=== PATIENT | male | born 1965 | race Caucasian/White ===

== ENCOUNTER → 2021-01-10 10:56 | Outpatient (BNVA) | payer OTHER, SELFPAY | PROVIDERS: PCP Internal Medicine; Visit Provider Surgery ==

== ENCOUNTER 2021-02-19 05:55 | Outpatient (REF) | payer OTHER, SELFPAY ==
[2021-02-19 08:16] LABS: PSA,Total (Free>4and<10) 1.58 ng/mL (0.00-4.00)
== END 2021-02-19 05:56 | disposition home or self-care (01) ==
LOC: HO.LAB 05:55
PROVIDERS: PCP Internal Medicine; Visit Provider Urology
DX: Z12.5 Encounter for screening for malignant neoplasm of prostate (principal); Z80.42 Family history of malignant neoplasm of prostate
CPT/HCPCS: 36415; 84153

== ENCOUNTER → 2021-02-23 12:38 | Outpatient (BNVA) | payer OTHER, SELFPAY | PROVIDERS: PCP Internal Medicine; Visit Provider Urology ==

== ENCOUNTER → 2021-07-18 13:36 | Outpatient (BNVA) | payer OTHER, SELFPAY | PROVIDERS: PCP Internal Medicine; Visit Provider Internal Medicine | DX: I10 Essential (primary) hypertension (principal); I49.3 Ventricular premature depolarization; E78.5 Hyperlipidemia, unspecified; Z82.49 Family history of ischemic heart disease and other diseases of the circulatory system | CPT/HCPCS: 93005 ==

== ENCOUNTER 2021-08-10 06:01 | Outpatient (REF) | payer OTHER, SELFPAY ==
[2021-08-10 06:07] LABS: MANUAL DIFF FLAG NO
[2021-08-10 07:27] LABS: Basophils Percent Auto 0.5 % (0-2); Eosinophils Absolute Auto 0.1 X10*3/uL (0.0-0.4); Eosinophils Percent Auto 1.6 % (0-4); Hematocrit 43.8 % (42-52); Hemoglobin 14.4 g/dl (14.0-18.0); Imm Gran Abs Auto 0.01 X10*3/uL (0.00-0.03); Imm Gran Pct Auto 0.2 % (0.0-0.4); Lymphocytes Absolute Auto 1.2 X10*3/uL (1.2-4.9); Lymphocytes Percent Auto 28.7 % (20-40); Mean Corpuscular HGB Conc 32.9 g/dl (31.0-36.0); Mean Corpuscular Hemoglobin 27.5 pg (27.0-33.0); Mean Corpuscular Volume 83.7 fL (80-98); Mean Platelet Volume 10.5 fL (9.4-12.4); Monocytes Absolute Auto 0.4 X10*3/uL (0.1-1.2); Monocytes Percent Auto 9.5 % (2-11); Neutrophils Absolute Auto 2.6 X10*3/uL (2.0-8.3); Neutrophils Percent Auto 59.5 % (45-73); Platelet Count 207 X10*3/uL (160-400); Red Blood Count 5.23 X10*6/uL (4.60-5.80); Red Cell Distribution Width 13.2 % (11.0-16.0); White Blood Count 4.3 X10*3/uL (4.8-10.8)
[2021-08-10 07:55] LABS: Alanine Aminotransferase 23 U/L (0-40); Albumin Level 4.8 g/dL (3.5-5.0); Alkaline Phosphatase 61 U/L (39-117); Anion Gap 13 (12-20); Aspartate Amino Transferase 15 U/L (5-37); Bilirubin Total 0.4 mg/dL (0.0-1.0); Blood Urea Nitrogen 22 mg/dL (9-16); Calcium 9.8 mg/dL (8.4-10.2); Carbon Dioxide 24 mmol/L (22-29); Chloride 104 mmol/L (96-108); Cholesterol 150 mg/dL; Estimated Glomerular Filt Rate > 60; Glucose Fasting 134 mg/dL (60-99); HDL Cholesterol 29 mg/dL; Potassium 4.1 mmol/L (3.3-5.1); Sodium 137 mmol/L (135-145); Total Protein 7.3 g/dL (6.5-8.0); Triglycerides 428 mg/dL
[2021-08-10 10:43] LABS: Creatinine Urine 204.03 mg/dL; Microalbum/Creatinine Ratio Ur 11.7 ug/mg cr
[2021-08-17 14:07] LABS: Vitamin D 25-OH, D2 <4 ng/mL; Vitamin D 25-OH, D3 29 ng/mL; Vitamin D 25-OH, Total 29 ng/mL (30-100)
== END 2021-08-10 06:02 | disposition home or self-care (01) ==
LOC: HO.LAB 06:01
PROVIDERS: PCP Internal Medicine; Visit Provider Internal Medicine
DX: E78.5 Hyperlipidemia, unspecified (principal); E11.9 Type 2 diabetes mellitus without complications; D64.9 Anemia, unspecified; F41.9 Anxiety disorder, unspecified; E55.9 Vitamin D deficiency, unspecified
CPT/HCPCS: 36415; 80053; 80061; 82043; 82306; 85025

== ENCOUNTER 2022-02-16 07:20 | Outpatient (REF) | payer OTHER, SELFPAY ==
[2022-02-16 08:12] LABS: Cholesterol 156 mg/dL; HDL Cholesterol 31 mg/dL; Triglycerides 529 mg/dL
[2022-02-16 08:15] LABS: Creatinine Urine 185.18 mg/dL; Microalbum/Creatinine Ratio Ur 4.3 ug/mg cr
[2022-02-16 08:33] LABS: Prostate Specific Antigen 2.57 ng/mL (<0.05-4.0)
[2022-02-20 13:35] LABS: Vitamin D 25-OH, D2 <4 ng/mL; Vitamin D 25-OH, D3 14 ng/mL; Vitamin D 25-OH, Total 14 ng/mL (30-100)
== END 2022-02-16 07:21 | disposition home or self-care (01) ==
LOC: HO.LAB 07:20
PROVIDERS: PCP Internal Medicine; Visit Provider Urology
DX: Z12.5 Encounter for screening for malignant neoplasm of prostate (principal); N13.8 Other obstructive and reflux uropathy; N40.1 Benign prostatic hyperplasia with lower urinary tract symptoms; E78.5 Hyperlipidemia, unspecified; E55.9 Vitamin D deficiency, unspecified; E11.9 Type 2 diabetes mellitus without complications
CPT/HCPCS: 36415; 80061; 82043; 82306; 84153

== ENCOUNTER → 2022-02-22 10:13 | Outpatient (BNVA) | payer OTHER, SELFPAY | PROVIDERS: PCP Internal Medicine; Visit Provider Urology | DX: Z13.89 Encounter for screening for other disorder (principal) ==

== ENCOUNTER 2022-08-15 06:02 | Outpatient (REF) | payer OTHER, SELFPAY ==
[2022-08-15 07:38] LABS: Alanine Aminotransferase 21 U/L (0-40); Albumin Level 4.6 g/dL (3.5-5.0); Alkaline Phosphatase 59 U/L (39-117); Anion Gap 17 (12-20); Aspartate Amino Transferase 17 U/L (5-37); Bilirubin Total 0.4 mg/dL (0.0-1.0); Blood Urea Nitrogen 18 mg/dL (9-16); Calcium 9.6 mg/dL (8.4-10.2); Carbon Dioxide 23 mmol/L (22-29); Chloride 102 mmol/L (96-108); Cholesterol 161 mg/dL; Estimated Glomerular Filt Rate > 60; Glucose Fasting 132 mg/dL (60-99); HDL Cholesterol 30 mg/dL; Potassium 4.2 mmol/L (3.3-5.1); Sodium 138 mmol/L (135-145); Total Protein 7.1 g/dL (6.5-8.0); Triglycerides 524 mg/dL
[2022-08-15 07:53] LABS: Thyroid Stimulating Hormone 1.79 uIU/mL (0.32-4.0)
== END 2022-08-15 06:03 | disposition home or self-care (01) ==
LOC: HO.LAB 06:02
PROVIDERS: PCP Internal Medicine; Visit Provider Internal Medicine
DX: I10 Essential (primary) hypertension (principal); E66.9 Obesity, unspecified; E55.9 Vitamin D deficiency, unspecified; E78.5 Hyperlipidemia, unspecified
CPT/HCPCS: 36415; 80053; 80061; 82306; 84443

== ENCOUNTER 2022-12-20 06:02 | Outpatient (REF) | payer OTHER, SELFPAY ==
[2022-12-20 08:08] LABS: Alanine Aminotransferase 26 U/L (0-40); Albumin Level 4.7 g/dL (3.5-5.0); Alkaline Phosphatase 64 U/L (39-117); Anion Gap 17 (12-20); Aspartate Amino Transferase 19 U/L (5-37); Bilirubin Total 0.4 mg/dL (0.0-1.0); Blood Urea Nitrogen 22 mg/dL (9-16); Calcium 9.5 mg/dL (8.4-10.2); Carbon Dioxide 23 mmol/L (22-29); Chloride 104 mmol/L (96-108); Cholesterol 153 mg/dL; Estimated Glomerular Filt Rate > 60; Glucose Fasting 99 mg/dL (60-99); HDL Cholesterol 31 mg/dL; Potassium 4.5 mmol/L (3.3-5.1); Sodium 139 mmol/L (135-145); Total Protein 7.1 g/dL (6.5-8.0); Triglycerides 455 mg/dL
[2022-12-20 08:16] LABS: Creatinine Urine 188.89 mg/dL; Microalbum/Creatinine Ratio Ur 5.8 ug/mg cr
[2022-12-20 08:23] LABS: Vitamin D 25-OH Total 9.8 ng/mL (>30)
== END 2022-12-20 06:03 | disposition home or self-care (01) ==
LOC: HO.LAB 06:02
PROVIDERS: PCP Internal Medicine; Visit Provider Internal Medicine
DX: Z00.00 Encounter for general adult medical examination without abnormal findings (principal); E78.5 Hyperlipidemia, unspecified; E11.9 Type 2 diabetes mellitus without complications; E55.9 Vitamin D deficiency, unspecified
CPT/HCPCS: 36415; 80053; 80061; 82043; 82306

== ENCOUNTER 2023-01-01 10:15 | Emergency (ER) | payer OTHER, SELFPAY ==
[2023-01-01 10:20] VITALS: BP 152/84; PULSE 102; RESP 18; TEMP 36.6; O2SAT 98; BMI 29.8
--- NOTE | 2023-01-01 10:23 | ECG_ITS ---
Test Reason : CHEST TIGHTNESS Blood Pressure : / mmHG Vent. Rate : 092 BPM Atrial Rate : 092 BPM P-R Int : 138 ms QRS Dur : 084 ms QT Int : 348 ms P-R-T Axes : 038 -01 037 degrees QTc Int : 430 ms Normal sinus rhythm Normal ECG When compared with ECG of 12-OCT-2018 08:03, Premature ventricular complexes are no longer Present Referred By: Generic ED Physician Electronically Signed By:PARMINDER CHAN MD
[2023-01-01 10:54] LABS: MANUAL DIFF FLAG NO
[2023-01-01 10:58] LABS: Basophils Percent Auto 0.7 % (0-2); Eosinophils Absolute Auto 0.1 X10*3/uL (0.0-0.4); Eosinophils Percent Auto 1.4 % (0-4); Hematocrit 44.9 % (42.0-52.0); Hemoglobin 14.9 g/dl (14.0-18.0); Imm Gran Abs Auto 0.02 X10*3/uL (0.00-0.03); Imm Gran Pct Auto 0.3 % (0.0-0.4); Lymphocytes Absolute Auto 1.3 X10*3/uL (1.2-4.9); Lymphocytes Percent Auto 22.2 % (20-40); Mean Corpuscular HGB Conc 33.2 g/dl (31.0-36.0); Mean Corpuscular Hemoglobin 28.2 pg (27.0-33.0); Mean Corpuscular Volume 84.9 fL (80.0-98.0); Mean Platelet Volume 9.8 fL (9.4-12.4); Monocytes Absolute Auto 0.6 X10*3/uL (0.1-1.2); Monocytes Percent Auto 10.5 % (2-11); Neutrophils Absolute Auto 3.8 x10*3/uL (2.0-8.3); Neutrophils Percent Auto 64.9 % (45-73); Platelet Count 197 X10*3/uL (160-400); Red Blood Count 5.29 X10*6/uL (4.60-5.80); Red Cell Distribution Width 13.1 % (11.0-16.0); White Blood Count 5.8 X10*3/uL (4.8-10.8)
[2023-01-01 11:16] LABS: Anion Gap 17 (12-20); Blood Urea Nitrogen 14 mg/dL (9-16); Calcium 9.9 mg/dL (8.4-10.2); Carbon Dioxide 24 mmol/L (22-29); Chloride 100 mmol/L (96-108); Creatinine Clr Calc Pharmacy 103.8; Estimated Glomerular Filt Rate > 60; Glucose Random 122 mg/dL (60-115); Potassium 4.3 mmol/L (3.3-5.1); Sodium 137 mmol/L (135-145)
[2023-01-01 11:27] LABS: Troponin-I High Sensitivity < 3.5 ng/L (<3.5-35.0)
[2023-01-01 14:00] VITALS: BP 128/91; PULSE 89; RESP 18; TEMP 36; O2SAT 99
[2023-01-01 18:18] VITALS: BP 157/105; PULSE 86; RESP 16; TEMP 37; O2SAT 99
[2023-01-01 18:22] VITALS: BP 151/102
--- NOTE | 2023-01-01 18:28 | ED_ITS ---
HPI - General Adult General Chief complaint: Arrhythmia/Palpitations Stated complaint: HBP/High heart rate Source: patient and RN notes reviewed Mode of arrival: ambulatory Limitations: no limitations History of Present Illness HPI narrative: 57-year-old male past medical history significant for hypertension, diabetes, anxiety presents for evaluation of high blood pressure. Patient reports for the last week he has had elevated blood pressure and increased heart rate He reports he feels increased stress stating ?I found out that my read is still going up and I got an argument with my son. ? He reports that he takes metoprolol and lisinopril for his blood pressure. He reports that he has been checking blood pressure throughout the day for the last week and the highest it has been is ?153/102. ? 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 for evaluation The patient reports that he also called his primary doctor who encouraged him to come to the ER The patient reports family history of coronary artery disease and CVA Related Data Previous Rx's Medication Instructions Recorded blood pressure test kit-large #1 ea 08/01/21 ([employer] Blood Pressure Monitor kit) rosuvastatin 10 mg tablet 10 mg PO DAILY #90 tabs 05/23/22 lisinopril 40 mg tablet 40 mg PO DAILY 90 days #90 tabs 06/02/22 lancets 28 gauge #100 ea 07/24/22 fluocinolone acetonide oil 0.01 % 5 drp otic (ear) left BID 7 days 08/20/22 ear drops (DermOtic Oil) #20 mL metoprolol succinate 100 mg 100 mg PO DAILY 90 days #90 tabs 09/27/22 tablet,extended release 24 hr clonazepam 1 mg tablet 1 mg PO BID 30 days #60 tabs 12/19/22 blood sugar diagnostic (FreeStyle #50 ea 12/24/22 Test strips) cholecalciferol (vitamin D3) 50 50 mcg PO DAILY 90 days #90 caps 01/01/23 mcg (2,000 unit) capsule fenofibrate 160 mg tablet 160 mg PO DAILY 90 days #90 tabs 01/01/23 Allergies Allergy/AdvReac Type Severity Reaction Status Date / Time amoxicillin [AMOXICILLIN] Allergy Intermediate HIVES Verified 01/01/23 10:20 cephalexin [CEPHALEXIN] Allergy Intermediate HIVES Verified 01/01/23 10:20 doxycycline [DOXYCYCLINE] Allergy Intermediate HIVES Verified 01/01/23 10:20 Sulfa (Sulfonamide Allergy Intermediate hives Verified 01/01/23 10:20 Antibiotics) Review of Systems Constitutional: Constitutional: Reports as per HPI, Denies chills, Denies fatigue, Denies fever(s) and Denies headache(s) ENT: Denies headache(s) Cardiovascular: Cardiovascular: Denies chest pain and Denies dyspnea Respiratory: Respiratory: Denies cough and Denies dyspnea Gastrointestinal: Gastrointestinal: Denies abdominal pain, Denies constipation and Denies vomiting Genitourinary: Genitourinary: Denies difficulty urinating and Denies dysuria Neurologic: Denies Abnormal speech present and Denies headache(s) Endocrine: Endocrine: Denies fatigue PMFSH Past Medical History Medical History Anxiety Diabetes mellitus Essential hypertension Surgical History History of surgery Family History Family History Father History of prostate surgery Mother Hx of CABG Sister DVT (deep venous thrombosis) Social History Social History Housing: Apartment Alcohol intake: current Alcohol intake frequency: a few times a month Alcohol type: hard liquor Patient Tobacco Use Status: Never used Tobacco e-Cigarette/Vaping Use: Never Used Second Hand Smoke Exposure: No Advance Directives: No Advance Directives Information Provided: No service: No Current occupational status: employed Current occupational exposures/hazards: No Cognitive needs: No Hearing needs: No Vision needs: No Physical Exam ED Vital Signs: Vital Signs - 24 hr 01/01/23 10:20 01/01/23 14:00 01/01/23 14:00 Temperature 97.8 F 96.8 F 96.8 F Pulse Rate 102 H 89 89 Respiratory Rate 18 18 18 Blood Pressure 152/84 H 128/91 H 128/91 H Pulse Oximetry 98 99 99 Oxygen Delivery Method Room Air Room Air Room Air 01/01/23 18:18 01/01/23 18:22 Temperature 98.6 F Pulse Rate 86 Respiratory Rate 16 Blood Pressure 157/105 H 151/102 H Pulse Oximetry 99 Oxygen Delivery Method Room Air BMI result Body Mass Index 29.8 Const General: healthy appearing, comfortable, no acute distress, alert and awake Nutritional Appearance: well nourished Orientation/consciousness: patient oriented x3 Eyes Eyelids: Yes eyelids normal Conjunctivae: conjunctivae normal Sclerae: sclerae normal Corneas: corneas normal Pupils: Equal, round and reactive pupils present EOM: EOMs intact bilaterally Resp Effort & Inspection: normal respiratory effort, able to speak in complete sentences, no audible wheezes and not labored Skin General skin exam: no rashes or lesions noted and elasticity normal Lesions: no lesions Rashes: no rashes Neuro General: patient oriented x3 Cranial nerves: Yes Equal, round and reactive pupils present and Yes Bilaterally intact EOM present Cognition (Neuro): normal cognition Speech: No Abnormal speech present Extrem General: Yes full ROM Medical Decision Making Medical Decision Making MDM Narrative: This is a pleasant 57-year-old male past medical history significant for hypertension, diabetes, anxiety presenting for evaluation of high blood pressure. The patient reports that he currently has no complaints except that he is hungry. His blood pressure in the ER is mildly elevated to 151/102 and a heart rate of 118. The patient reports feeling mildly anxious about these number because ?my family has history of stroke. The patient had labs that were all unremarkable including troponin, he had an EKG with normal sinus rhythm without ectopy. The patient is currently managed by his PCP for his hypertension with 2 medications. I do not feel that is necessary to adjust his medication at this time. There is no evidence of hypertensive urgency, end organ damage related to the hypertension. The patient agreed to follow-up with PCP Differential Diagnosis High blood pressure Hypertension Anxiety Coronary artery disease Stress Lab Data 01/01/23 10:49 01/01/23 10:49 Labs: Lab Results 01/01/23 01/01/23 01/01/23 Range/Units 10:49 10:49 10:49 WBC 5.8 (4.8-10.8) X10*3/uL RBC 5.29 (4.60-5.80) X10*6/uL Hgb 14.9 (14.0-18.0) g/dl Hct 44.9 (42.0-52.0) % MCV 84.9 (80.0-98.0) fL MCH 28.2 (27.0-33.0) pg MCHC 33.2 (31.0-36.0) g/dl RDW 13.1 (11.0-16.0) % Plt Count 197 (160-400) X10*3/uL MPV 9.8 (9.4-12.4) fL Immature Gran % (Auto) 0.3 (0.0-0.4) % Neut % (Auto) 64.9 (45-73) % Lymph % (Auto) 22.2 (20-40) % [place] % (Auto) 10.5 (2-11) % Eos % (Auto) 1.4 (0-4) % Baso % (Auto) 0.7 (0-2) % Lymph # (Auto) 1.3 (1.2-4.9) X10*3/uL [place] # (Auto) 0.6 (0.1-1.2) X10*3/uL Eos # (Auto) 0.1 (0.0-0.4) X10*3/uL Baso # (Auto) 0.0 (0.0-0.2) X10*3/uL Abs Immat Gran (auto) 0.02 (0.00-0.03) X10*3/uL Absolute Neuts (auto) 3.8 (2.0-8.3) x10*3/uL Absolute Nucleated RBC 0.000 (0.0-0.012) X10*3/uL Nucleated RBC % (auto) 0.0 (0.0-0.2) /100WBC Sodium 137 (135-145) mmol/L Potassium 4.3 (3.3-5.1) mmol/L Chloride 100 (96-108) mmol/L Carbon Dioxide 24 (22-29) mmol/L Anion Gap 17 (12-20) BUN 14 (9-16) mg/dL Creatinine 1.00 (0.5-1.4) mg/dL Estim Creat Clear Calc 103.8 Estimated GFR > 60 Random Glucose 122 H (60-115) mg/dL Calcium 9.9 (8.4-10.2) mg/dL Troponin I High Sens < 3.5 (<3.5-35.0) ng/L Discharge Plan Discharge Clinical Impression: Essential hypertension, Anxiety Patient Disposition: Home, Self-Care Instructions: Chronic Hypertension (ED) Additional Instructions: Check your blood pressure only 1 time daily at approximately the same time every day. Call your primary doctor schedule a follow-up appointment and bring your blood pressure diary with you. Prescriptions: No Action (DME) blood pressure test kit-large [[employer] BP Monitor] Kit See Rx Instructions .Route Qty: 1 0RF Rx Instructions: As directed rosuvastatin 10 mg tablet 10 mg PO DAILY Qty: 90 3RF lisinopril 40 mg tablet 40 mg PO DAILY 90 Days Qty: 90 3RF (DME) lancets 28 gauge misc See Rx Instructions topical DAILY Qty: 100 3RF Rx Instructions: Use 1 lancet once a day metoprolol succinate 100 mg tablet extended release 24 hr 100 mg PO DAILY 90 Days Qty: 90 2RF clonazepam 1 mg tablet 1 mg PO BID 30 Days Qty: 60 0RF (DME) FreeStyle Test Strip See Rx Instructions .ROUTE .MEDSUPPLY Qty: 50 11RF Rx Instructions: Use 1 test strip once a day cholecalciferol (vitamin D3) 50 mcg (2,000 unit) capsule 50 mcg PO DAILY 90 Days Qty: 90 1RF fenofibrate 160 mg tablet 160 mg PO DAILY 90 Days Qty: 90 1RF fluocinolone acetonide oil [DermOtic Oil] 0.01 % drops 5 drp otic (ear) left BID 7 Days Qty: 20 1RF
== END 2023-01-01 18:39 | disposition home or self-care (01) ==
PROVIDERS: Emergency Provider Emergency Medicine; PCP Internal Medicine
DX: I10 Essential (primary) hypertension (principal); F41.9 Anxiety disorder, unspecified; E11.9 Type 2 diabetes mellitus without complications; Z79.02 Long term (current) use of antithrombotics/antiplatelets; Z79.899 Other long term (current) drug therapy
CPT/HCPCS: 36415; 80048; 84484; 85025; 93005; 99283; 99284

== ENCOUNTER 2023-02-13 06:51 | Outpatient (REF) | payer OTHER, SELFPAY ==
[2023-02-13 08:15] LABS: Prostate Specific Antigen 1.95 ng/mL (<0.05-4.0)
== END 2023-02-13 06:52 | disposition home or self-care (01) ==
LOC: HO.LAB 06:51
PROVIDERS: PCP Internal Medicine; Visit Provider Urology
DX: R97.20 Elevated prostate specific antigen [PSA] (principal); N13.8 Other obstructive and reflux uropathy; N40.1 Benign prostatic hyperplasia with lower urinary tract symptoms; Z12.5 Encounter for screening for malignant neoplasm of prostate
CPT/HCPCS: 36415; 84153

== ENCOUNTER → 2023-02-21 09:44 | Outpatient (BNVA) | payer OTHER, SELFPAY | PROVIDERS: PCP Internal Medicine; Visit Provider Urology | DX: Z13.89 Encounter for screening for other disorder (principal) ==

== ENCOUNTER 2023-08-04 14:06 | Outpatient (AMB) | payer OTHER, SELFPAY ==
--- NOTE | 2023-08-04 14:13 | MHC.PC.OV ---
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 Accompanied by: Self / Same As Patient Allergies amoxicillin [AMOXICILLIN] Allergy (Intermediate, Verified 08/04/23 14:27) HIVES cephalexin [CEPHALEXIN] Allergy (Intermediate, Verified 08/04/23 14:27) HIVES doxycycline [DOXYCYCLINE] Allergy (Intermediate, Verified 08/04/23 14:27) HIVES Sulfa (Sulfonamide Antibiotics) Allergy (Intermediate, Verified 08/04/23 14:27) hives Medication List - Last Reconciled 08/04/23 by Mercy Castro MD blood pressure test kit-large ([employer] Blood Pressure Monitor kit) As directed blood sugar diagnostic (FreeStyle Test strips) Use 1 test strip once a day blood sugar diagnostic (Accu-Chek Guide test strips) check blood glucose once daily blood-glucose meter (Accu-Chek Guide Glucose Meter) check glucose once daily clonazepam 1 mg PO BID 30 days fenofibrate 160 mg PO DAILY 90 days lancets Use 1 lancet once a day lancets (Accu-Chek Softclix Lancets) check blood glucose once daily lisinopril 40 mg PO DAILY 90 days metoprolol succinate ER 100 mg PO DAILY 90 days rosuvastatin 10 mg PO DAILY Tobacco use date assessed: 08/04/23 Dental Screening Dental Screen Date: 08/04/23 Did you have a dental visit in the last 12 months?: Yes Did you have a dental problem in the last 6 months where you did not have access to dental care?: No Was dental information given to patient?: Patient has dentist HPI HPI Comments History of Present Illness Details This is a 58-year-old male with hypertension, mixed hyperlipidemia and anxiety that comes today complaining of elevated blood pressure today associated with sweating. Denies any headaches, dizziness, chest pain, palpitations or shortness of breath. He took his lisinopril today. Blood pressure will be recheck in 3 weeks by nurse navigator. Cholesterol and triglycerides were stable with medications. Anxiety also well controlled with benzodiazepines as needed and he is aware can cause addiction and sedation. [facility] Medical History (Updated 08/04/23 @ 15:49 by Mercy Castro MD) Anxiety Essential hypertension Surgical History History of surgery Family History Father History of prostate surgery Mother Hx of CABG Sister DVT (deep venous thrombosis) Social History Housing: Apartment Alcohol intake: current Alcohol intake frequency: a few times a month Alcohol type: hard liquor Patient Tobacco Use Status: Never used Tobacco e-Cigarette/Vaping Use: Never Used Second Hand Smoke Exposure: No service: No Current occupational status: employed Current occupational exposures/hazards: No Cognitive needs: No Hearing needs: No Vision needs: Yes Questionnaire PHQ-9 Over the last 2 weeks, how often have you been bothered by any of the following problems? 1. Little interest or pleasure in doing things: not at all 2. Feeling down, depressed, or hopeless: not at all 3. Trouble falling or staying asleep, or sleeping too much: not at all 4. Feeling tired or having little energy: not at all 5. Poor appetite or overeating: not at all 6. Feeling bad about yourself - or that you are a failure or have let yourself or your family down: not at all 7. Trouble concentrating on things, such as reading the newspaper or watching television: not at all 8. Moving or speaking so slowly that other people could have noticed. Or the opposite - being so fidgety or restless that you have been moving around a lot more than usual: not at all 9. Thoughts that you would be better off or of hurting yourself in some way: not at all Total score: 0 Depression Screening Interpretation: Negative 78883 - PHQ-9 Billing: Yes Source: Developed by Drs. Jordan Beckford, Digna Matt, Jacob Scales and colleagues, with an educational delfino from [employer] Thrive Questionnaire Date Thrive assessed: 08/04/23 I am a: Patient What is your living situation today?: I have a steady place to live Within the past 12 months, did the food you bought not last and you didn't have the money to get more?: Never true Within the past 12 months, did you worry whether your food would run out before you got money to buy more?: Never true Do you have trouble paying for medicines?: No Do you have trouble getting transportation to medical appointments?: No Do you have trouble paying your heating and electricity bill?: No Do you have trouble taking care of your child, family member or friend?: No Do you have trouble with day-to-day activities such as bathing, preparing meals, shopping, managing finances, etc.?: No Are you currently unemployed and looking for a job?: No Are you interested in more education?: No Please select the resources that you would like help with: None Currently or been in a relationship where the following occur: no concerns reported AUDIT C Alcohol Use Questionnaire (AUDIT-C) 1. How often do you have a drink containing alcohol?: 2-4 times a month 2. How many drinks containing alcohol do you have on a typical day when you are drinking?: 1 or 2 3. How often do you have six or more drinks on one occasion?: Never Total Score: 2 Score Reviewed/Action Taken: No PAYAL-7 AMB Questionnaire PAYAL-7 Date PAYAL - 7 assessed: 08/04/23 Feeling nervous, anxious, or on edge: 1 = Several days Not being able to stop or control worryin = Not at all Worrying too much about different things: 0 = Not at all Trouble relaxin = Not at all Being so restless that it is hard to sit still: 0 = Not at all Becoming easily annoyed or irritable: 0 = Not at all Feeling afraid as if something awful might happen: 0 = Not at all Total PAYAL-7 score (0-4 normal; 5-9 mild; 10-14 moderate; 15-21 severe): 1 Source: Developed by Drs. Jordan Beckford, Digna Matt, Jacob Scales and colleagues, with an educational delfino from [employer] PAYAL-7 Assessment Billing PAYAL-7 Assessment Tool: PAYAL-7 Assessment 12718 Review of Systems Const All systems reviewed & are unremarkable except as noted in HPI and below Eyes Reports no additional complaints, Denies change in vision and Denies other visual disturbances Card Denies chest pain at rest, Denies chest pain with activity, Denies edema, Denies irregular heart rhythm, Denies claudication, Denies dyspnea, Denies dyspnea on exertion, Denies orthopnea, Denies paroxysmal nocturnal dyspnea and Denies slow heart rate Resp Denies cough, Denies dyspnea and Denies dyspnea on exertion GI Denies abdominal pain, Denies change in bowel habits, Denies excessive flatus, Denies nausea and Denies vomiting Denies urinary hesitancy, Denies urinary incontinence and Denies urinary urgency Musc Denies abnormal gait, Denies atrophy, Denies deformity and Denies limited range of motion Skin/Breast Denies bleeding lesions, Denies changing lesions and Denies rash Neuro Denies abnormal gait and Denies lack of coordination Physical exam (Primary Care) Vital Signs: Last Vital Signs Pulse 104 H 08/04/23 14:14 BP 168/98 H 08/04/23 14:14 Pulse Ox 98 08/04/23 14:14 Oxygen Delivery Method Room Air 08/04/23 14:14 BMI result Body Mass Index 29.9 Tobacco/Smoking Status: Tobacco use Status Tobacco use date assessed 08/04/23 08/04/23 14:25 Patient Tobacco Use Status Never used Tobacco 08/04/23 14:25 e-Cigarette/Vaping Use Never Used 08/04/23 14:25 PHQ-9: PHQ-9 Score PHQ-9: Total score 0 08/04/23 14:44 Depression Screening Interpretation: Negative Thrive Assessment: Date of Thrive Assessment Date Thrive assessed 08/04/23 08/04/23 14:25 Currently or been in a relationship where the following occur: no concerns reported Eyes General: appearance normal, both eyes and all related structures Eyelids: Yes eyelids normal Conjunctivae: conjunctivae normal Neck Neck: Yes normal visual inspection and Yes supple Resp Effort & Inspection: normal respiratory effort Auscultation: clear to auscultation bilaterally Cardio Jugular venous distension: no JVD Rate: regular rate Rhythm: regular rhythm Heart sounds: S1 normal heart sound present and S2 normal heart sound present Extrem General: Yes full ROM Office Procedures Flu Questionnaire Does the patient have a severe egg allergy?: No Immunizations flu vacc [id number] 6mos up(PF) 60 mcg(15 mcgx4)/0.5 mL IM syringe Performing Provider: Mercy Castro MD [facility] Documented (not given) by: SHIREEN Greene on 08/04/23 14:37 Reason Not Given: Patient Refused Assessment and Plan Assessment & Plan (1) Essential hypertension: Code(s): I10 - Essential (primary) hypertension Plan: Continue lisinopril. Blood pressure goal is equal or less than 130/80. (2) Anxiety: Code(s): F41.9 - Anxiety disorder, unspecified Plan: Continue benzodiazepines as needed. (3) Mixed hyperlipidemia: Code(s): E78.2 - Mixed hyperlipidemia Plan: Continue statins and fibrates. Orders: Orders Metanephrines, 24hr Urine Today I10 - Essential (primary) hypertension Catecholamines, Frac., 24Ur Today I10 - Essential (primary) hypertension Comprehensive [place]. Panel Fast Today I10 - Essential (primary) hypertension Thyroid Stimulating Hormone Today I10 - Essential (primary) hypertension Lipid Panel Today E78.5 - Hyperlipidemia, unspecified, I10 - Essential (primary) hypertension US renal doppler Today I10 - Essential (primary) hypertension Influenza [id number] Immunization Today Z23 - Encounter for immunization Renin Today I10 - Essential (primary) hypertension US renal BI Today I10 - Essential (primary) hypertension Coding Level of Care Code Est Pt Level 3 (46913) Diagnoses Essential hypertension I10 Anxiety F41.9 Mixed hyperlipidemia E78.2 Additional Codes PAYAL-7 Assessment Billing - PAYAL-7 Assessment Tool: PAYAL-7 Assessment [id number] ([id number]) Time Spent (min) 18
[2023-08-04 14:14] VITALS: BP 168/98; PULSE 104; O2SAT 98; BMI 29.9
[2023-08-04 15:48] VITALS: BP 160/90
== END 2023-08-04 14:38 | disposition home or self-care (01) ==
PROVIDERS: PCP Internal Medicine; Visit Provider Internal Medicine
DX: I10 Essential (primary) hypertension (principal); F41.9 Anxiety disorder, unspecified; E78.2 Mixed hyperlipidemia
CPT/HCPCS: 99213

== ENCOUNTER 2023-08-29 06:24 | Outpatient (REF) | payer OTHER, SELFPAY ==
[2023-08-29 08:04] LABS: Alanine Aminotransferase 27 U/L (0-40); Albumin Level 4.6 g/dL (3.5-5.0); Alkaline Phosphatase 59 U/L (39-117); Anion Gap 13 (12-20); Aspartate Amino Transferase 15 U/L (5-37); Bilirubin Total 0.4 mg/dL (0.0-1.0); Blood Urea Nitrogen 22 mg/dL (9-16); Calcium 9.8 mg/dL (8.4-10.2); Carbon Dioxide 23 mmol/L (22-29); Chloride 107 mmol/L (96-108); Cholesterol 148 mg/dL (<200); Estimated Glomerular Filt Rate > 60; Glucose Fasting 133 mg/dL (60-99); HDL Cholesterol 30 mg/dL (>40); LDL Cholesterol Calculated 52 mg/dL (<100); Potassium 4.4 mmol/L (3.3-5.1); Sodium 139 mmol/L (135-145); Total Protein 7.1 g/dL (6.5-8.0); Triglycerides 333 mg/dL (<150)
[2023-08-29 08:19] LABS: Thyroid Stimulating Hormone 1.33 uIU/mL (0.32-4.0)
== END 2023-08-29 06:25 | disposition home or self-care (01) ==
LOC: HO.LAB 06:24
PROVIDERS: PCP Internal Medicine; Visit Provider Internal Medicine
DX: I10 Essential (primary) hypertension (principal); E78.5 Hyperlipidemia, unspecified
CPT/HCPCS: 36415; 80053; 80061; 84244; 84443

== ENCOUNTER 2023-09-02 09:34 | Outpatient (REF) | payer OTHER, SELFPAY ==
--- NOTE | ~2023-09-02 | US_ITS ---
EXAMINATION: ULTRASOUND OF KIDNEYS WITH RENAL ARTERY DOPPLER CLINICAL INFORMATION: Hypertension. COMPARISON: None available. TECHNIQUE: Ultrasound of the kidneys was performed along with color flow Doppler imaging and velocity measurements in the proximal mid and distal renal arteries. Aortic velocities were measured and renal/aortic ratios were calculated. Segmental resistive indices were measured bilaterally. FINDINGS: The kidneys appeared normal with the right kidney measuring 11.4 x 4.6 x 6.1 cm and the left kidney measuring 12.4 x 5.4 x 6.2 cm. There is a benign Bosniak class II left lower pole cyst measuring 1.4 x 1.9 x 1.3 cm with a single thin septation. No worrisome solid renal masses, renal stones or hydronephrosis is seen. Renal cortical thickness appears normal. Velocity measurements in the proximal mid and distal renal arteries are normal. Highest value on the right is proximally at 116 cm/s and on the left is distal at 87 cm/s. Velocity in the aorta is mildly elevated at 112 cm/s and, therefore, the renal aortic ratios could not be accurately calculated. Resistive indices are normal bilaterally ranging from 0.53-0.64 on the right and 0.61-0.65 on the left. The bladder was not evaluated. Incidental note made of an echogenic liver consistent with hepatic steatosis. US/US renal doppler IMPRESSION: No evidence to suggest renal artery stenosis.
--- NOTE | ~2023-09-02 | US_ITS ---
EXAMINATION: ULTRASOUND OF KIDNEYS WITH RENAL ARTERY DOPPLER CLINICAL INFORMATION: Hypertension. COMPARISON: None available. TECHNIQUE: Ultrasound of the kidneys was performed along with color flow Doppler imaging and velocity measurements in the proximal mid and distal renal arteries. Aortic velocities were measured and renal/aortic ratios were calculated. Segmental resistive indices were measured bilaterally. FINDINGS: The kidneys appeared normal with the right kidney measuring 11.4 x 4.6 x 6.1 cm and the left kidney measuring 12.4 x 5.4 x 6.2 cm. There is a benign Bosniak class II left lower pole cyst measuring 1.4 x 1.9 x 1.3 cm with a single thin septation. No worrisome solid renal masses, renal stones or hydronephrosis is seen. Renal cortical thickness appears normal. Velocity measurements in the proximal mid and distal renal arteries are normal. Highest value on the right is proximally at 116 cm/s and on the left is distal at 87 cm/s. Velocity in the aorta is mildly elevated at 112 cm/s and, therefore, the renal aortic ratios could not be accurately calculated. Resistive indices are normal bilaterally ranging from 0.53-0.64 on the right and 0.61-0.65 on the left. The bladder was not evaluated. Incidental note made of an echogenic liver consistent with hepatic steatosis. US/US renal BI IMPRESSION: No evidence to suggest renal artery stenosis.
== END 2023-09-02 09:35 | disposition home or self-care (01) ==
LOC: HO.US 09:34
PROVIDERS: PCP Internal Medicine; Visit Provider Internal Medicine
DX: I10 Essential (primary) hypertension (principal)
CPT/HCPCS: 76775; 93975

== ENCOUNTER 2023-09-04 07:12 | Outpatient (REF) | payer OTHER, SELFPAY ==
[2023-09-10 10:07] LABS: Metanephrine, Free 24U 209 mcg/24 h (90-315); Normetanephrine, Free 24U 839 mcg/24 h (122-676); Total Metanephrine, Free 24U 1048 mcg/24 h (224-832); Total Volume 24U 2000 mL
[2023-09-12 06:39] LABS: CATF, 24 Ur Volume 2000 mL; CATF-24Ur Creatinine 2.61 g/24 h (0.50-2.15); Catecholamines,Tot. (E+NE) 24U 89 mcg/24 h (26-121); Dopamine, 24 Ur 500 mcg/24 h (52-480); Epinephrine, 24 Ur 9 mcg/24 h (2-24); Norepinephrine, 24 Ur 80 mcg/24 h (15-100)
== END 2023-09-04 07:13 | disposition home or self-care (01) ==
LOC: HO.LNP 07:12
PROVIDERS: Visit Provider Internal Medicine
DX: I10 Essential (primary) hypertension (principal)
CPT/HCPCS: 82384; 83835

== ENCOUNTER 2023-09-18 14:01 | Outpatient (AMB) | payer OTHER, SELFPAY ==
--- NOTE | 2023-09-18 14:06 | A.OFFPC_ITS ---
Vital Signs 09/18/23 14:07 Height 6 ft 1 in Weight 226 lb BMI 29.8 BP 150/90 H Blood Pressure Location Lt brachial Position Sitting Pulse 97 Pulse Source Pulse Oximeter Pulse Oximetry (%) 98 Oxygen Delivery Method Room Air Intake Visit Reasons: Annual Exam - needs A1C Intake Note: Patient here for a physical exam Transactional Paralegal Required: No Accompanied by: Self / Same As Patient Allergies amoxicillin [AMOXICILLIN] Allergy (Intermediate, Verified 09/18/23 14:25) HIVES cephalexin [CEPHALEXIN] Allergy (Intermediate, Verified 09/18/23 14:25) HIVES doxycycline [DOXYCYCLINE] Allergy (Intermediate, Verified 09/18/23 14:25) HIVES Sulfa (Sulfonamide Antibiotics) Allergy (Intermediate, Verified 09/18/23 14:25) hives Medication List - Last Reconciled 09/18/23 by Mercy Castro MD amlodipine 5 mg PO DAILY 30 days blood pressure test kit-large ([employer] Blood Pressure Monitor kit) As directed blood sugar diagnostic (FreeStyle Test strips) Use 1 test strip once a day blood sugar diagnostic (Accu-Chek Guide test strips) check blood glucose once daily blood-glucose meter (Accu-Chek Guide Glucose Meter) check glucose once daily clonazepam 1 mg PO BID 30 days fenofibrate 160 mg PO DAILY 90 days lancets Use 1 lancet once a day lancets (Accu-Chek Softclix Lancets) check blood glucose once daily lisinopril 40 mg PO DAILY 90 days metoprolol succinate ER 100 mg PO DAILY 90 days rosuvastatin 10 mg PO DAILY Tobacco use date assessed: 08/04/23 Dental Screening Dental Screen Date: 09/18/23 Did you have a dental visit in the last 12 months?: Yes Did you have a dental problem in the last 6 months where you did not have access to dental care?: No Was dental information given to patient?: Patient has dentist HPI HPI Comments History of Present Illness Details This is a 58-year-old male that comes for his physical exam. He has diabetes mellitus type 2 controlled with diet with A1c within goal. Last colonoscopy was 2016 and was normal. Has had left ganglion cyst removed 2-3 times in the past and now it is painful and bothers him and I will refer him to surgery. LDL within goal. Advised to do low triglyceride diet. He also has elevated blood pressure and blood pressure will be recheck in 3 weeks by nurse navigator. I will increase amlodipine. He had elevated red in which might be secondary to ARI-inhibitor but also has elevated urine metanephrines which can be related to a pheochromocytoma and this is why I am ordering CT scan of the abdomen. He also complains of headaches and perspiration when blood pressure is elevated. [facility] Medical History (Updated 09/18/23 @ 14:42 by Mercy Castro MD) Anxiety Essential hypertension Surgical History History of surgery Family History Father History of prostate surgery Mother Hx of CABG Sister DVT (deep venous thrombosis) Social History Housing: Apartment Alcohol intake: current Alcohol intake frequency: a few times a month Alcohol type: hard liquor Patient Tobacco Use Status: Never used Tobacco e-Cigarette/Vaping Use: Never Used Second Hand Smoke Exposure: No service: No Current occupational status: employed Current occupational exposures/hazards: No Cognitive needs: No Hearing needs: No Vision needs: Yes Questionnaire Thrive Questionnaire Date Thrive assessed: 08/04/23 PAYAL-7 AMB Questionnaire PAYAL-7 Date PAYAL - 7 assessed: 08/04/23 Source: Developed by Drs. Jordan Beckford, Digna Matt, Jacob Scales and colleagues, with an educational delfino from [employer]. Review of Systems Const All systems reviewed & are unremarkable except as noted in HPI and below Reports headache(s) Eyes Reports no additional complaints, Denies change in vision and Denies other visual disturbances ENT Reports headache(s) Card Denies chest pain at rest, Denies chest pain with activity, Denies edema, Denies irregular heart rhythm, Denies claudication, Denies dyspnea, Denies dyspnea on exertion, Denies orthopnea, Denies paroxysmal nocturnal dyspnea and Denies slow heart rate Resp Denies cough, Denies dyspnea and Denies dyspnea on exertion GI Denies abdominal pain, Denies change in bowel habits, Denies excessive flatus, Denies nausea and Denies vomiting Denies urinary hesitancy, Denies urinary incontinence and Denies urinary urgency Musc Denies abnormal gait, Denies atrophy, Denies deformity and Denies limited range of motion Skin/Breast Denies bleeding lesions, Denies changing lesions and Denies rash Neuro Denies abnormal gait, Reports headache(s) and Denies lack of coordination Physical exam (Primary Care) Vital Signs: Last Vital Signs Pulse 97 09/18/23 14:07 BP 150/90 H 09/18/23 14:07 Pulse Ox 98 09/18/23 14:07 Oxygen Delivery Method Room Air 09/18/23 14:07 BMI result Body Mass Index 29.8 Tobacco/Smoking Status: Tobacco use Status Tobacco use date assessed 08/04/23 09/18/23 14:06 Patient Tobacco Use Status Never used Tobacco 09/18/23 14:06 e-Cigarette/Vaping Use Never Used 09/18/23 14:06 Thrive Assessment: Date of Thrive Assessment Date Thrive assessed 08/04/23 09/18/23 14:06 Const Orientation/consciousness: patient oriented x3 HENMT Head: Yes normal to inspection, Yes normocephalic and Yes atraumatic Ears: external ears normal Eyes General: appearance normal, both eyes and all related structures Eyelids: Yes eyelids normal Conjunctivae: conjunctivae normal Neck Neck: Yes normal visual inspection and Yes supple Resp Effort & Inspection: normal respiratory effort Auscultation: clear to auscultation bilaterally Cardio Jugular venous distension: no JVD Rate: regular rate Rhythm: regular rhythm Heart sounds: S1 normal heart sound present and S2 normal heart sound present GI Inspection: Yes normal to inspection Palpation (GI): Soft to palpation and nontender Auscultation: normal bowel sounds Skin General skin exam: no rashes or lesions noted Neuro General: patient oriented x3 and no focal motor deficits Extrem General: Yes full ROM Psych Appearance: grossly normal Results AMB Hemoglobin A1c AMB Hemoglobin A1c 6.4 % Last Edit by SHIREEN Greene on 09/18/23 14:1 9 Results Reviewed Results Reviewed: Laboratory Last Values Hgb A1c (Clinic) 6.4 % (4.0-6.0) H 09/18/23 14:17 Assessment and Plan Assessment & Plan (1) Encounter for physical examination: Code(s): Z00.00 - Encounter for general adult medical examination without abnormal findings Plan: Repeat in a year. (2) Adrenal disorder: Code(s): E27.9 - Disorder of adrenal gland, unspecified Plan: CT scan of abdomen and pelvis ordered to rule out pheochromocytoma. (3) Diabetes mellitus: Code(s): E11.9 - Type 2 diabetes mellitus without complications Plan: Continue low-carbohydrate diet. A1c goal is equal or less than 7 %, Orders: Orders Aldost/Renin 4 Months I10 - Essential (primary) hypertension Aldosterone 4 Months I10 - Essential (primary) hypertension Lipid Panel 4 Months E78.5 - Hyperlipidemia, unspecified, I10 - Essential (primary) hypertension AMB Hemoglobin A1c Today R73.01 - Impaired fasting glucose CT abdomen pelvis wo IV con Today E27.9 - Disorder of adrenal gland, unspecified, I10 - Essential (primary) hypertension Comprehensive Himrod. Panel Fast 4 Months I10 - Essential (primary) hypertension Referrals General Surgery Referral M67.472 - Ganglion, left ankle and foot Medications: New amlodipine 10 mg PO DAILY 90 days 90 tabs 0RF guaifenesin ER (Mucinex) 600 mg PO Q12H 5 days PRN 10 tabs 0RF congestion Discontinued amlodipine Discontinued Reason: Patient Completed Course 5 mg PO DAILY 30 days 30 tabs 1RF Coding Level of Care Code Est Pt Prev Care 40-64y(71958) Diagnoses Encounter for physical examination Z00.00 Adrenal disorder E27.9 Diabetes mellitus E11.9 Time Spent (min) 33
[2023-09-18 14:07] VITALS: BP 150/90; PULSE 97; O2SAT 98; BMI 29.8
== END 2023-09-18 14:44 | disposition home or self-care (01) ==
PROVIDERS: Visit Provider Internal Medicine
DX: Z00.00 Encounter for general adult medical examination without abnormal findings (principal); E27.9 Disorder of adrenal gland, unspecified; E11.9 Type 2 diabetes mellitus without complications; R73.01 Impaired fasting glucose
CPT/HCPCS: 83036; 99396

== ENCOUNTER 2023-10-09 12:44 | Outpatient (AMB) | payer OTHER, SELFPAY ==
--- NOTE | 2023-10-09 12:50 | A.OFFVIS_ITS ---
Intake Vital Signs 3 10/09/23 12:58 Height 6 ft 1 in Weight 226 lb 2 oz BMI 29.8 BP 160/89 H Blood Pressure Location Lt brachial Position Sitting Pulse 106 H Intake Visit Reasons: Ganglion, left wrist lump Intake Note: Patient is seen in office for evaluation and treatment of ganglion cyst of the left wrist. Pt c/o: had surgery 2017 to remove the lump, the lump came back one year ago, numbness in the finger, weakness of the hand, pain radiates up the arm Supply Chain Generalist Required: No Accompanied by: Self / Same As Patient Allergies amoxicillin [AMOXICILLIN] Allergy (Intermediate, Verified 10/09/23 12:55) HIVES cephalexin [CEPHALEXIN] Allergy (Intermediate, Verified 10/09/23 12:55) HIVES doxycycline [DOXYCYCLINE] Allergy (Intermediate, Verified 10/09/23 12:55) HIVES Sulfa (Sulfonamide Antibiotics) Allergy (Intermediate, Verified 10/09/23 12:55) hives Medication List - Last Reconciled 10/09/23 by Rodney Ceballos MD amlodipine 10 mg PO DAILY 90 days blood pressure test kit-large ([employer] Blood Pressure Monitor kit) As directed blood sugar diagnostic (FreeStyle Test strips) Use 1 test strip once a day blood sugar diagnostic (Accu-Chek Guide test strips) check blood glucose once daily blood-glucose meter (Accu-Chek Guide Glucose Meter) check glucose once daily clonazepam 1 mg PO BID 30 days fenofibrate 160 mg PO DAILY 90 days lancets Use 1 lancet once a day lancets (Accu-Chek Softclix Lancets) check blood glucose once daily lisinopril 40 mg PO DAILY 90 days metoprolol succinate ER 100 mg PO DAILY 90 days rosuvastatin 10 mg PO DAILY HPI HPI Comments 2 History of Present Illness0 Details 58-year-old male patient , left hand dominant, with a prior history of a ganglion of the left wrist previously excised in 2017 now returning with swelling in the left wrist. He reports some weakness in the left hand when holding heavy objects. 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 He denies any redness or discharge from the wrist. The swellings at the site of his previous surgery. [facility] Medical History Anxiety Essential hypertension Surgical History History of excision of mass (03/10/13) History of orchiectomy (04/17/17) History of colonoscopy (2016) History of surgical removal of ganglion cyst (06/27/17) Family History Father Prostate cancer, Onset Age: 46 Mother Hx of CABG Sister DVT (deep venous thrombosis) Social History Housing: Apartment Alcohol intake: current Alcohol intake frequency: a few times a month Alcohol type: hard liquor Patient Tobacco Use Status: Never used Tobacco e-Cigarette/Vaping Use: Never Used Second Hand Smoke Exposure: No service: No Current occupational status: employed Current occupational exposures/hazards: No Cognitive needs: No Hearing needs: No Vision needs: Yes Review of Systems Const All systems reviewed & are unremarkable except as noted in HPI and below Physical Exam Vital Signs: Last Vital Signs Pulse 106 H 10/09/23 12:58 BP 160/89 H 10/09/23 12:58 BMI result Body Mass Index 29.8 Const General: cooperative and no acute distress Nutritional Appearance: well nourished Orientation/consciousness: patient oriented x3 Limitations: no limitations HEENT Head: Yes normocephalic and Yes atraumatic Ears: hearing grossly normal bilaterally Resp Effort & Inspection: normal respiratory effort, no audible wheezes, no cough and no respiratory distress Cardio Jugular venous distension: no JVD GI Inspection: Yes normal to inspection Skin Other: Warm, dry, no rash Neuro General: patient oriented x3 Extrem Other: Left wrist with a 1.5 cm area of swelling mobile within the wrist over the radial surface. No tenderness is noted to palpation. Normal strength noted at the hand. Normal range of motion at the wrist. Findings suggestive of a recurrent ganglion cyst. General: Yes no clubbing, cyanosis or edema Hand/finger images: 2 1. recurring ganglion Assessment & Plan Assessment & Plan (1) Ganglion, left wrist: Code(s): M67.432 - Ganglion, left wrist Plan 58-year-old male patient returning with a recurrent ganglion cyst of the left wrist. Patient previously underwent surgery in 2017 and now notes swelling at the same site . I recommended further evaluation by Hand surgery (Dr. Guardado ) for further management. He should follow up as needed. Orders: Referrals 2 Hand Surgery Referral M67.432 - Ganglion, left wrist Coding Level of Care Code New Pt Level 3 (91929) Diagnoses Ganglion, left wrist M67.432
[2023-10-09 12:58] VITALS: BP 160/89; PULSE 106; BMI 29.8
== END 2023-10-09 13:03 | disposition home or self-care (01) ==
PROVIDERS: PCP Internal Medicine; Referring Provider Internal Medicine; Visit Provider Surgery
DX: M67.432 Ganglion, left wrist (principal)
CPT/HCPCS: 99203

== ENCOUNTER → 2023-10-09 12:44 | Outpatient (BNVA) | payer OTHER, SELFPAY | PROVIDERS: PCP Internal Medicine; Referring Provider Internal Medicine; Visit Provider Surgery ==

== ENCOUNTER 2023-10-31 13:02 | Outpatient (REF) | payer OTHER, SELFPAY ==
--- NOTE | ~2023-10-31 | CT_ITS ---
EXAMINATION: CT ABDOMEN AND PELVIS WITHOUT CONTRAST CLINICAL INFORMATION: Disorder of adrenal gland. COMPARISON: Renal Doppler dated 09/02/2023. TECHNIQUE: Multidetector volumetric imaging was performed from the superior aspect of the liver through the pubic symphysis. Sagittal and coronal reformatted images were obtained on the technologist's workstation. This CT examination was performed using dose optimization techniques as appropriate, variously including the following: *Automated exposure control *Adjustment of mA and/or kV according to patient size (this includes techniques or standardized protocols for targeted exams where dose is matched to indication/reason for exam; i.e. extremities or head) *Use of iterative reconstruction technique DLP: 563 mGy-cm FINDINGS: LUNG BASES: At the posteromedial left base (3:1), a 6 mm benign pleural-based lymph node is seen. LIVER, GALLBLADDER, AND BILIARY TREE: The liver is normal in size, shape, and attenuation. Within hepatic segment 8 anteriorly (3:12), a 4 mm low-attenuation probable cyst is seen, too small to fully characterize with CT. This is of doubtful clinical significance. No biliary ductal dilatation is present. The gallbladder is unremarkable with no evidence of radiopaque gallstones, gallbladder wall thickening, or obvious pericholecystic inflammatory changes. PANCREAS: Unremarkable. SPLEEN: Unremarkable. ADRENAL GLANDS: The right adrenal gland is unremarkable. The left adrenal gland contains an indeterminate 2.3 x 2.0 cm nodule, with precontrast Hounsfield value of 25.0 units. KIDNEYS AND URETERS: The kidneys are normal in size, shape, and attenuation. No hydronephrosis, hydroureter, or calculi seen. At the lower pole of the left kidney (3:54), a 1.9 cm benign, simple appearing cyst is seen, with precontrast Hounsfield value of 13.0 units. This requires no imaging follow-up. No perinephric stranding. BLADDER: There is a prostatic impression upon the bladder base. Otherwise, unremarkable. GASTROINTESTINAL TRACT: There is mild diverticulosis, without acute diverticulitis. No bowel obstruction, free intraperitoneal air or abscess is seen. There is no focal bowel wall thickening. The vermiform appendix is normal. ABDOMINAL WALL: There is a very small fat-containing left inguinal hernia. LYMPH NODES: Normal. VASCULAR: There is very mild aortoiliac atherosclerotic calcification. No abdominal aortic aneurysm or dissection is seen. PELVIC VISCERA: There is prostatomegaly, with a transverse span of 5.9 cm. The seminal vesicles are unremarkable. OSSEOUS STRUCTURES: There is multi-level thoracolumbar spondylosis and Schmorl's node formation. No acute or aggressive osseous finding is noted. CT/CT abdomen pelvis wo IV con IMPRESSION: 1. A 2.3 cm indeterminate left adrenal nodule seen. Current ACR WHITE PAPER RECOMMENDATIONS regarding incidental adrenal masses include; - Imaging can characterize adrenal adenomas with high accuracy but cannot be used to distinguish hyperfunctioning from nonhyperfunctioning masses - Current guidelines from the [place] Association of Clinical Endocrinologists and the [place] Association of Endocrine Surgeons recommend an initial biochemical evaluation of all adrenal incidentalomas to exclude pheochromocytoma, subclinical Jorge?s syndrome, and hyperaldosteronism. 2. There is mild diverticulosis, without acute diverticulitis. 3. Within hepatic segment 8 anteriorly, a 4 mm low-attenuation probable cyst or benign hemangioma is seen, too small for full characterization with CT. This is of doubtful clinical significance. If of continued clinical concern (i.e., history of hepatocellular disease or known malignancy), this can be further evaluated with ultrasound or MRI. 4. There is prostatomegaly. 5. There are degenerative changes of the thoracolumbar spine. No aggressive osseous lesion is seen. Fleischner guidelines were followed.
== END 2023-10-31 13:03 | disposition home or self-care (01) ==
LOC: HO.CT 13:02
PROVIDERS: PCP Internal Medicine; Visit Provider Internal Medicine
DX: E27.9 Disorder of adrenal gland, unspecified (principal); I10 Essential (primary) hypertension
CPT/HCPCS: 74176

== ENCOUNTER 2023-11-29 07:01 | Outpatient (REF) | payer OTHER, SELFPAY ==
[2023-12-03 11:59] LABS: Metanephrine, Free 40 pg/mL (<=57); Normetanephrines, Free 167 pg/mL (<=148); Total Metanephrine, Free 207 pg/mL (<=205)
== END 2023-11-29 07:02 | disposition home or self-care (01) ==
LOC: HO.LAB 07:01
PROVIDERS: Internal Medicine Endocrinology, Diabetes & Metabolism; PCP Internal Medicine; Visit Provider Physician Assistant
DX: E27.9 Disorder of adrenal gland, unspecified (principal)
CPT/HCPCS: 36415; 82088; 83835; 84244

== ENCOUNTER 2023-12-09 12:50 | Outpatient (AMB) | payer OTHER, SELFPAY ==
[2023-12-09 12:54] VITALS: BMI 29.8
--- NOTE | 2023-12-09 12:54 | A.OFFVIS_ITS ---
Intake Vital Signs 12/09/23 12:54 Height 6 ft 1 in Weight 226 lb BMI 29.8 Intake Visit Reasons: recycling specialist- Ganglion, left wrist Intake Note: Chauncey 58 yr old male who is left hand dominant, presents today for a new patient visit for his left hand ganglion cyst. States cyst is on his radial aspect of wrist. States he first noticed it about 5 yrs ago and has increased in size. Hx of cyst excision [id number] ago with Dr. Ceballos, it returned about 2-3 yrs after and had it drained. A yr later, cyst has increase in size and is now having pain and weakness when lifting. Denies numbness, tingling or recent injury. 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 He is also seeing a endocrinology for further evaluation and would like to discuss his options today. Allergies amoxicillin [AMOXICILLIN] Allergy (Intermediate, Verified 12/09/23 13:02) HIVES cephalexin [CEPHALEXIN] Allergy (Intermediate, Verified 12/09/23 13:02) HIVES doxycycline [DOXYCYCLINE] Allergy (Intermediate, Verified 12/09/23 13:02) HIVES Sulfa (Sulfonamide Antibiotics) Allergy (Intermediate, Verified 12/09/23 13:02) hives HPI recycling specialist- Ganglion, left wrist HPI Details Chauncey is a 58 year old left hand dominant man who presents with complaints of a mass on his inner left wrist. He reports having a volar ganglion cyst removed in ~[address] Ceballos. He says this mass returned a few years after surgery, and he had this drained. He says this mass has returned a second time in the last ~1 year or so. He says this is in the same location as his previous mass, and causes him pain & weakness when using his wrist. He denies any numbness or tingling, but is concerned about the weakness. 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 He would like to discuss treatment options. [facility] Medical History Anxiety Essential hypertension Surgical History History of excision of mass (03/10/13) History of orchiectomy (04/17/17) History of colonoscopy (2017) History of surgical removal of ganglion cyst (06/27/17) Family History Father Prostate cancer, Onset Age: 46 Mother Hx of CABG Sister DVT (deep venous thrombosis) Social History (Updated 12/09/23 @ 13:05 by Rosanne Cline CCM) Housing: Apartment Alcohol intake: current Alcohol intake frequency: a few times a month Alcohol type: hard liquor Patient Tobacco Use Status: Never used Tobacco e-Cigarette/Vaping Use: Never Used Second Hand Smoke Exposure: No service: No Current occupational status: employed Current occupation: [employer] dept/ rt hand Current occupational exposures/hazards: No Cognitive needs: No Hearing needs: No Vision needs: Yes Review of Systems Const All systems reviewed & are unremarkable except as noted in HPI and below Physical Exam Vital Signs: BMI result Body Mass Index 29.8 Const General: cooperative, healthy appearing and no acute distress Orientation/consciousness: patient oriented x3 HEENT Head: Yes normocephalic and Yes atraumatic Eyes EOM: EOMs intact bilaterally Resp Effort & Inspection: normal respiratory effort and able to speak in complete sentences Cardio Jugular venous distension: no JVD Skin General skin exam: turgor normal Rashes: no rashes Neuro General: patient oriented x3 Extrem Other: Evaluation of Left Upper Extremity: The patient is alert, oriented, and in no acute distress Neuro: Median, Ulnar, Radial nerves motor and sensory intact and sensation is normal to the tips of all digits Vascular: Cap refill brisk ROM: He can make a fist and extend all his digits No locking or catching Smooth and painless wrist range of motion Skin: No lacerations or abrasions. He has a 2 cm longitudinally oriented surgical scar directly over the recurrent left volar wrist ganglion centered approximately 2.5 cm proximal to the distal wrist crease. He does appear to have some mild swelling around it. No erythema or warmth. With Justin's test he has good fill across all digits from the ulnar artery. General: No Ecchymosis. No Erythema or evidence of infection. Psych Appearance: grossly normal Affect: normal affect Attitude: cooperative Assessment & Plan Assessment & Plan (1) Ganglion, left wrist: Code(s): M67.432 - Ganglion, left wrist Plan Assessment & Plan: 1. Left volar wrist ganglion, recurrence S/P excision in ~[address] Ceballos S/P aspiration in ~[id number] Measuring ~1.5cm in diameter He is left-hand dominant I educated him about this condition I discussed operative and non-operative treatment options The patient would like to think about surgery, however he is currently waiting to speak with his doctor concerning another possible surgery. He will take time to consider his options in regards to surgery or alternative treatment. 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 He will follow up sometime in March to discuss this. He may cancel this appointme nt. Scribed for Tatiana Guardado MD by Hasmukh Kathleen, medical records auditor, on 12/09/23 at 1:22 PM, EST. Coding Level of Care Code New Pt Level 3 (27024) Diagnoses Ganglion, left wrist M67.432
== END 2023-12-09 13:39 | disposition home or self-care (01) ==
PROVIDERS: PCP Internal Medicine; Visit Provider Orthopaedic Surgery
DX: M67.432 Ganglion, left wrist (principal)
CPT/HCPCS: 99203

== ENCOUNTER → 2023-12-09 12:50 | Outpatient (BNVA) | payer OTHER, SELFPAY | PROVIDERS: PCP Internal Medicine; Visit Provider Orthopaedic Surgery ==

== ENCOUNTER 2023-12-25 06:26 | Outpatient (REF) | payer OTHER, SELFPAY ==
[2023-12-25 08:35] LABS: Alanine Aminotransferase 21 U/L (0-40); Albumin Level 4.5 g/dL (3.5-5.0); Alkaline Phosphatase 62 U/L (39-117); Anion Gap 16 (12-20); Aspartate Amino Transferase 16 U/L (5-37); Bilirubin Total 0.4 mg/dL (0.0-1.0); Blood Urea Nitrogen 16 mg/dL (9-16); Calcium 9.8 mg/dL (8.4-10.2); Carbon Dioxide 24 mmol/L (22-29); Chloride 105 mmol/L (96-108); Cholesterol 160 mg/dL (<200); Estimated Glomerular Filt Rate > 60; Glucose Fasting 131 mg/dL (60-99); HDL Cholesterol 34 mg/dL (>40); Potassium 3.9 mmol/L (3.3-5.1); Sodium 141 mmol/L (135-145); Total Protein 7.3 g/dL (6.5-8.0); Triglycerides 429 mg/dL (<150)
[2024-01-01 17:09] LABS: Aldosterone/Renin Ratio 0.7 Ratio (0.9-28.9); Plasma Renin Activity 4.06 ng/mL/h (0.25-5.82)
== END 2023-12-25 06:27 | disposition home or self-care (01) ==
LOC: HO.LAB 06:26
PROVIDERS: PCP Internal Medicine; Visit Provider Internal Medicine
DX: I10 Essential (primary) hypertension (principal); E78.5 Hyperlipidemia, unspecified
CPT/HCPCS: 36415; 80053; 80061; 82088

== ENCOUNTER 2023-12-30 07:35 | Outpatient (AMB) | payer OTHER, SELFPAY ==
--- NOTE | 2023-12-30 07:44 | MHC.PC.OV ---
Vital Signs 12/30/23 07:48 12/30/23 08:42 Height 6 ft 1 in Weight 224 lb 13.944 oz BMI 29.7 BP 150/100 H 145/90 H Blood Pressure Location Lt brachial Lt brachial Position Sitting Sitting Intake Visit Reasons: dm Intake Note: Patient here for a follow up DM Nitroglycerin Separator Operator Required: No Accompanied by: Self / Same As Patient Allergies amoxicillin [AMOXICILLIN] Allergy (Intermediate, Verified 12/30/23 08:12) HIVES cephalexin [CEPHALEXIN] Allergy (Intermediate, Verified 12/30/23 08:12) HIVES doxycycline [DOXYCYCLINE] Allergy (Intermediate, Verified 12/30/23 08:12) HIVES Sulfa (Sulfonamide Antibiotics) Allergy (Intermediate, Verified 12/30/23 08:12) hives Medication List - Last Reconciled 12/30/23 by Mercy Castro MD amlodipine 10 mg PO DAILY 90 days blood pressure test kit-large (NASOFORMuch Blood Pressure Monitor kit) As directed blood sugar diagnostic (FreeStyle Test strips) Use 1 test strip once a day blood sugar diagnostic (Accu-Chek Guide test strips) check blood glucose once daily blood-glucose meter (Accu-Chek Guide Glucose Meter) check glucose once daily clonazepam 1 mg PO BID 30 days fenofibrate 160 mg PO DAILY 90 days lancets Use 1 lancet once a day lancets (Accu-Chek Softclix Lancets) check blood glucose once daily lisinopril 40 mg PO DAILY 90 days metoprolol succinate ER 100 mg PO DAILY 90 days rosuvastatin 10 mg PO DAILY Tobacco use date assessed: 12/30/23 Dental Screening Dental Screen Date: 12/30/23 Did you have a dental visit in the last 12 months?: No Did you have a dental problem in the last 6 months where you did not have access to dental care?: No Was dental information given to patient?: Patient has dentist HPI HPI Comments History of Present Illness Details This is a 58-year-old male with hypertension, mixed hyperlipidemia, diabetes mellitus type 2 and adrenal nodule that comes today for follow-up on his conditions. Blood pressure elevated and will be recheck in 3 weeks by nurse navigator. He did took his blood pressure medications today. A1c elevated and I will restart him on medications such as Actos. Triglycerides elevated and he admits being compliant with fenofibrate. I advised to follow a low triglyceride diet. He has an adrenal nodule and was evaluated by [facility] which order blood work and advised him to have a follow-up CT scan in a few months to re-evaluate adrenal nodule. He declines headaches, sweating and tachycardia which are the classic triad of pheochromocytoma. Endocrinology said she was not worried. CT scan of the abdomen also shows a benign kidney disease, a liver cyst and a small fat containing left inguinal hernia. Will be referred to surgery non urgently for his inguinal hernia. No chest pain or shortness of breath. [facility] Medical History Anxiety Essential hypertension Surgical History History of excision of mass (03/10/13) History of orchiectomy (04/17/17) History of colonoscopy (2016) History of surgical removal of ganglion cyst (06/27/17) Family History Father Prostate cancer, Onset Age: 46 Mother Hx of CABG Sister DVT (deep venous thrombosis) Social History Housing: Apartment Alcohol intake: current Alcohol intake frequency: a few times a month Alcohol type: hard liquor Patient Tobacco Use Status: Never used Tobacco e-Cigarette/Vaping Use: Never Used Second Hand Smoke Exposure: No service: No Current occupational status: employed Current occupation: [employer] dept/ rt hand Current occupational exposures/hazards: No Cognitive needs: No Hearing needs: No Vision needs: Yes Questionnaire PHQ-9 Over the last 2 weeks, how often have you been bothered by any of the following problems? 1. Little interest or pleasure in doing things: not at all 2. Feeling down, depressed, or hopeless: not at all 3. Trouble falling or staying asleep, or sleeping too much: not at all 4. Feeling tired or having little energy: not at all 5. Poor appetite or overeating: not at all 6. Feeling bad about yourself - or that you are a failure or have let yourself or your family down: not at all 7. Trouble concentrating on things, such as reading the newspaper or watching television: not at all 8. Moving or speaking so slowly that other people could have noticed. Or the opposite - being so fidgety or restless that you have been moving around a lot more than usual: not at all 9. Thoughts that you would be better off or of hurting yourself in some way: not at all Total score: 0 Depression Screening Interpretation: Negative Depression Screening Done: Yes 05921 - PHQ-9 Billing: Yes Source: Developed by Drs. Jordan Beckford, Digna Matt, Jacob Scales and colleagues, with an educational delfino from [employer]. Thrive Questionnaire Date Thrive assessed: 12/30/23 I am a: Patient What is your living situation today?: I have a steady place to live Within the past 12 months, did the food you bought not last and you didn't have the money to get more?: Never true Within the past 12 months, did you worry whether your food would run out before you got money to buy more?: Never true Do you have trouble paying for medicines?: No Do you have trouble getting transportation to medical appointments?: No Do you have trouble paying your heating and electricity bill?: No Do you have trouble taking care of your child, family member or friend?: No Do you have trouble with day-to-day activities such as bathing, preparing meals, shopping, managing finances, etc.?: No Are you currently unemployed and looking for a job?: No Are you interested in more education?: No Please select the resources that you would like help with: None Currently or been in a relationship where the following occur: no concerns reported THRIVE Score: 0 AUDIT C Alcohol Use Questionnaire (AUDIT-C) 1. How often do you have a drink containing alcohol?: Monthly or less 2. How many drinks containing alcohol do you have on a typical day when you are drinking?: 1 or 2 3. How often do you have six or more drinks on one occasion?: Never Total Score: 1 Score Reviewed/Action Taken: No PAYAL-7 AMB Questionnaire PAYAL-7 Date PAYAL - 7 assessed: 12/30/23 Feeling nervous, anxious, or on edge: 1 = Several days Not being able to stop or control worryin = Not at all Worrying too much about different things: 0 = Not at all Trouble relaxin = Not at all Being so restless that it is hard to sit still: 0 = Not at all Becoming easily annoyed or irritable: 0 = Not at all Feeling afraid as if something awful might happen: 0 = Not at all Total PAYAL-7 score (0-4 normal; 5-9 mild; 10-14 moderate; 15-21 severe): 1 Source: Developed by Drs. Jordan Beckford, Digna Matt, Jacob Scales and colleagues, with an educational delfino from [employer]. PAYAL-7 Assessment Billing PAYAL-7 Assessment Tool: PAYAL-7 Assessment 88633 Review of Systems Const All systems reviewed & are unremarkable except as noted in HPI and below Eyes Reports no additional complaints, Denies change in vision and Denies other visual disturbances Card Denies chest pain at rest, Denies chest pain with activity, Denies edema, Denies irregular heart rhythm, Denies claudication, Denies dyspnea, Denies dyspnea on exertion, Denies orthopnea, Denies paroxysmal nocturnal dyspnea and Denies slow heart rate Resp Denies cough, Denies dyspnea and Denies dyspnea on exertion GI Denies abdominal pain, Denies change in bowel habits, Denies excessive flatus, Denies nausea and Denies vomiting Denies urinary hesitancy, Denies urinary incontinence and Denies urinary urgency Musc Denies abnormal gait, Denies atrophy, Denies deformity and Denies limited range of motion Skin/Breast Denies bleeding lesions, Denies changing lesions and Denies rash Neuro Denies abnormal gait, Denies behavioral changes and Denies lack of coordination Psych Denies behavioral changes Physical exam (Primary Care) Vital Signs: Last Vital Signs BP 145/90 H 12/30/23 08:42 BMI result Body Mass Index 29.7 Tobacco/Smoking Status: Tobacco use Status Tobacco use date assessed 12/30/23 12/30/23 07:51 Patient Tobacco Use Status Never used Tobacco 12/30/23 07:45 e-Cigarette/Vaping Use Never Used 12/30/23 07:45 PHQ-9: PHQ-9 Score PHQ-9: Total score 0 12/30/23 08:50 Depression Screening Interpretation: Negative Thrive Assessment: Date of Thrive Assessment Date Thrive assessed 12/30/23 12/30/23 07:51 Currently or been in a relationship where the following occur: no concerns reported Eyes General: appearance normal, both eyes and all related structures Eyelids: Yes eyelids normal Conjunctivae: conjunctivae normal Neck Neck: Yes normal visual inspection and Yes supple Resp Effort & Inspection: normal respiratory effort Auscultation: clear to auscultation bilaterally Cardio Jugular venous distension: no JVD Rate: regular rate Rhythm: regular rhythm Heart sounds: S1 normal heart sound present and S2 normal heart sound present Extrem General: Yes full ROM Results AMB Hemoglobin A1c AMB Hemoglobin A1c 6.9 % Last Edit by SHIREEN Greene on 12/30/23 08:51 Results Reviewed Results Reviewed: Laboratory Last Values Hgb A1c (Clinic) 6.9 % (4.0-6.0) H 12/30/23 08:51 Assessment and Plan Assessment & Plan (1) Diabetes mellitus: Code(s): E11.9 - Type 2 diabetes mellitus without complications Qualifiers: Diabetes mellitus complication status: without complication Diabetes mellitus terminal operations manager insulin use: without skilled nursing use Diabetes mellitus type: type 2 Qualified Code(s): E11.9 - Type 2 diabetes mellitus without complications Plan: Start Actos. A1c goal is equal or less than 7%. (2) Adrenal nodule: Comment: Follow by [facility] Code(s): E27.8 - Other specified disorders of adrenal gland Plan: Follow-up with endocrinology. (3) Mixed hyperlipidemia: Code(s): E78.2 - Mixed hyperlipidemia Plan: Continue statins and fibrates. Repeat lipid panel. LDL goal is less than 70. (4) Inguinal hernia: Code(s): K40.90 - Unilateral inguinal hernia, without obstruction or gangrene, not specified as recurrent Qualifiers: Laterality: unilateral Obstruction and gangrene presence: without obstruction or gangrene Recurrence: non-recurrent Qualified Code(s): K40.90 - Unilateral inguinal hernia, without obstruction or gangrene, not specified as recurrent Plan: Referred to general surgery. (5) Essential hypertension: Code(s): I10 - Essential (primary) hypertension Plan: Continue lisinopril and amlodipine. Recheck blood pressure with nurse navigator in 3 weeks. Blood pressure goal is equal or less than 130/80. Orders: Orders Lipid Panel 4 Months E78.5 - Hyperlipidemia, unspecified Microalbumin, Random (w Creat) 4 Months E11.9 - Type 2 diabetes mellitus without complications Comprehensive [place]. Panel Fast 4 Months E11.9 - Type 2 diabetes mellitus without complications Vitamin D 25-OH Total 4 Months E55.9 - Vitamin D deficiency, unspecified AMB Hemoglobin A1c Today E11.9 - Type 2 diabetes mellitus without complications Referrals General Surgery Referral K40.90 - Unilateral inguinal hernia, without obstruction or gangrene, not specified as recurrent Medications: New pioglitazone 15 mg PO DAILY 30 tabs 3RF 30 days E11.9 - Type 2 diabetes mellitus without complications Coding Level of Care Code Est Pt Level 4 (52250) Diagnoses Type 2 diabetes mellitus without complication, without long-term current use of insulin E11.9 Diabetes mellitus complication status: without complication Diabetes mellitus terminal operations manager insulin use: without skilled nursing use Diabetes mellitus type: type 2 Adrenal nodule E27.8 Mixed hyperlipidemia E78.2 Non-recurrent unilateral inguinal hernia without obstruction or gangrene K40.90 Laterality: unilateral Obstruction and gangrene presence: without obstruction or gangrene Recurrence: non-recurrent Essential hypertension I10 Additional Codes PAYAL-7 Assessment Billing - PAYAL-7 Assessment Tool: PAYAL-7 Assessment 96270 ([id number]) Time Spent (min) 23
[2023-12-30 07:48] VITALS: BP 150/100; BMI 29.7
[2023-12-30 08:42] VITALS: BP 145/90
== END 2023-12-30 08:36 | disposition home or self-care (01) ==
PROVIDERS: PCP Internal Medicine; Visit Provider Internal Medicine
DX: E11.9 Type 2 diabetes mellitus without complications (principal); E27.8 Other specified disorders of adrenal gland; E78.2 Mixed hyperlipidemia; K40.90 Unilateral inguinal hernia, without obstruction or gangrene, not specified as recurrent; I10 Essential (primary) hypertension
CPT/HCPCS: 83036; 99214

== ENCOUNTER 2024-01-13 08:50 | Emergency (ER) | payer OTHER, SELFPAY ==
--- NOTE | 2024-01-13 | ECG_ITS ---
Test Reason : chest pain Blood Pressure : / mmHG Vent. Rate : 079 BPM Atrial Rate : 079 BPM P-R Int : 148 ms QRS Dur : 094 ms QT Int : 368 ms P-R-T Axes : 042 -05 020 degrees QTc Int : 421 ms Normal sinus rhythm Normal ECG When compared with ECG of 01-JAN-2023 10:41, No significant change was found Referred By: Generic ED Physician Electronically Signed By:PARMINDER CHAN MD
--- NOTE | ~2024-01-13 | XR_ITS ---
EXAMINATION: XR CHEST CLINICAL INFORMATION: Chest pain. COMPARISON: None available. TECHNIQUE: 2 views of the chest were obtained. FINDINGS: The lungs are clear. The cardiomediastinal silhouette is normal in size. There is no pleural effusion or pneumothorax. No acute osseous abnormality. XR/XR chest 2V IMPRESSION: No acute cardiopulmonary findings.
[2024-01-13 08:52] VITALS: BP 154/91; PULSE 85; RESP 17; TEMP 36.2; O2SAT 100; BMI 29.2
[2024-01-13 10:51] LABS: MANUAL DIFF FLAG NO
[2024-01-13 10:52] LABS: Basophils Percent Auto 0.6 % (0-2); Eosinophils Absolute Auto 0.1 X10*3/uL (0.0-0.4); Eosinophils Percent Auto 2.3 % (0-4); Hematocrit 42.3 % (42.0-52.0); Hemoglobin 14.2 g/dl (14.0-18.0); Imm Gran Abs Auto 0.01 X10*3/uL (0.00-0.03); Imm Gran Pct Auto 0.2 % (0.0-0.4); Lymphocytes Absolute Auto 1.1 X10*3/uL (1.2-4.9); Lymphocytes Percent Auto 20.5 % (20-40); Mean Corpuscular HGB Conc 33.6 g/dl (31.0-36.0); Mean Corpuscular Hemoglobin 28.7 pg (27.0-33.0); Mean Corpuscular Volume 85.6 fL (80.0-98.0); Mean Platelet Volume 9.2 fL (9.4-12.4); Monocytes Absolute Auto 0.4 X10*3/uL (0.1-1.2); Neutrophils Absolute Auto 3.5 x10*3/uL (2.0-8.3); Neutrophils Percent Auto 68.4 % (45-73); Platelet Count 205 X10*3/uL (160-400); Red Blood Count 4.94 X10*6/uL (4.60-5.80); Red Cell Distribution Width 13.1 % (11.0-16.0); White Blood Count 5.1 X10*3/uL (4.8-10.8)
[2024-01-13 11:20] LABS: Alanine Aminotransferase 20 U/L (0-40); Albumin Level 4.9 g/dL (3.5-5.0); Alkaline Phosphatase 69 U/L (39-117); Anion Gap 12 (12-20); Aspartate Amino Transferase 16 U/L (5-37); Bilirubin Total 0.4 mg/dL (0.0-1.0); Blood Urea Nitrogen 12 mg/dL (9-16); Calcium 10.1 mg/dL (8.4-10.2); Carbon Dioxide 26 mmol/L (22-29); Chloride 105 mmol/L (96-108); Estimated Glomerular Filt Rate > 60; Glucose Random 133 mg/dL (60-115); Magnesium 2.1 mg/dL (1.6-2.6); Potassium 4.2 mmol/L (3.3-5.1); Sodium 139 mmol/L (135-145); Total Protein 7.4 g/dL (6.5-8.0)
[2024-01-13 11:21] LABS: Troponin-I High Sensitivity < 2.7 ng/L (<3.5-35.0)
[2024-01-13 11:23] VITALS: BP 132/82; PULSE 70; RESP 18; TEMP 36.5; O2SAT 100
[2024-01-13 11:29] LABS: Influenza A PCR NEGATIVE (Negative); Influenza B PCR NEGATIVE (Negative); Resp Syncy Virus RNA Qual PCR NEGATIVE (Negative); SARS COV2 PCR INHOUSE NEGATIVE (Negative)
--- NOTE | 2024-01-13 11:30 | ED.CHESTPAIN ---
HPI - Chest Pain General Chief Complaint: Chest Pain Stated Complaint: Chest pain Time Seen by Provider: 01/13/24 11:30 Source: patient Mode of arrival: ambulatory Limitations: no limitations History of Present Illness HPI narrative: 58-year-old male with a history of diabetes, hypertension, hyperlipidemia, depression, anxiety Related Data Previous Rx's Medication Instructions Recorded blood pressure test kit-large #1 ea 08/01/21 (CareTouch Blood Pressure Monitor kit) lancets 28 gauge #100 ea 07/24/22 blood sugar diagnostic (FreeStyle #50 ea 12/24/22 Test strips) fenofibrate 160 mg tablet 160 mg PO DAILY 90 days #90 tabs 01/01/23 blood-glucose meter (Accu-Chek #1 ea 01/09/23 Guide Glucose Meter) lancets (Accu-Chek Softclix #100 ea 01/09/23 Lancets) metoprolol succinate 100 mg 100 mg PO DAILY 90 days #90 tabs 06/14/23 tablet,extended release 24 hr rosuvastatin 10 mg tablet 10 mg PO DAILY #90 tabs 06/14/23 lisinopril 40 mg tablet 40 mg PO DAILY 90 days #90 tabs 07/02/23 blood sugar diagnostic (Accu-Chek #100 ea 09/14/23 Guide test strips) amlodipine 10 mg tablet 10 mg PO DAILY 90 days #90 tabs 11/12/23 pioglitazone 15 mg tablet 15 mg PO DAILY 30 days #30 tabs 12/30/23 clonazepam 1 mg tablet 1 mg PO BID 30 days #60 tabs 01/08/24 Allergies Allergy/AdvReac Type Severity Reaction Status Date / Time amoxicillin [AMOXICILLIN] Allergy Intermediate HIVES Verified 12/30/23 08:12 cephalexin [CEPHALEXIN] Allergy Intermediate HIVES Verified 12/30/23 08:12 doxycycline [DOXYCYCLINE] Allergy Intermediate HIVES Verified 12/30/23 08:12 Sulfa (Sulfonamide Allergy Intermediate hives Verified 12/30/23 08:12 Antibiotics) PMFSH Past Medical History Medical History Anxiety Essential hypertension Surgical History History of excision of mass (03/10/13) History of orchiectomy (04/17/17) History of colonoscopy (2017) History of surgical removal of ganglion cyst (06/27/17) Family History Family History Father Prostate cancer, Onset Age: 46 Mother Hx of CABG Sister DVT (deep venous thrombosis) Social History Social History Housing: Apartment Alcohol intake: current Alcohol intake frequency: a few times a month Alcohol type: hard liquor Patient Tobacco Use Status: Never used Tobacco Smoked in Last 30 Days: No e-Cigarette/Vaping Use: Never Used Second Hand Smoke Exposure: No Use of substances other than those prescribed or required for medical reasons: No Advance Directives: No Advance Directives Information Provided: Yes service: No Current occupational status: employed Current occupation: [employer] dept/ rt hand Current occupational exposures/hazards: No Cognitive needs: No Hearing needs: No Vision needs: Yes Physical Exam Vital Signs: Vital Signs: Last Vital Signs Temp 98.0 F 01/13/24 12:54 Pulse 68 01/13/24 12:54 Resp 20 01/13/24 12:54 BP 127/82 01/13/24 12:54 Pulse Ox 100 01/13/24 12:54 O2 Del Method Room Air 01/13/24 12:54 BMI result Body Mass Index 29.2 Medical Decision Making Lab Data [facility] Lab Attestation statement: I reviewed the patient's lab results. 01/13/24 10:45 01/13/24 10:44 Labs: Lab Results 01/13/24 01/13/24 01/13/24 Range/Units 10:44 10:45 10:48 WBC 5.1 (4.8-10.8) X10*3/uL RBC 4.94 (4.60-5.80) X10*6/uL Hgb 14.2 (14.0-18.0) g/dl Hct 42.3 (42.0-52.0) % MCV 85.6 (80.0-98.0) fL MCH 28.7 (27.0-33.0) pg MCHC 33.6 (31.0-36.0) g/dl RDW 13.1 (11.0-16.0) % Plt Count 205 (160-400) X10*3/uL MPV 9.2 L (9.4-12.4) fL Immature Gran % (Auto) 0.2 (0.0-0.4) % Neut % (Auto) 68.4 (45-73) % Lymph % (Auto) 20.5 (20-40) % [place] % (Auto) 8.0 (2-11) % Eos % (Auto) 2.3 (0-4) % Baso % (Auto) 0.6 (0-2) % Lymph # (Auto) 1.1 L (1.2-4.9) X10*3/uL [place] # (Auto) 0.4 (0.1-1.2) X10*3/uL Eos # (Auto) 0.1 (0.0-0.4) X10*3/uL Baso # (Auto) 0.0 (0.0-0.2) X10*3/uL Abs Immat Gran (auto) 0.01 (0.00-0.03) X10*3/uL Absolute Neuts (auto) 3.5 (2.0-8.3) x10*3/uL Absolute Nucleated RBC 0.000 (0.0-0.012) X10*3/uL Nucleated RBC % (auto) 0.0 (0.0-0.2) /100WBC Sodium 139 (135-145) mmol/L Potassium 4.2 (3.3-5.1) mmol/L Chloride 105 (96-108) mmol/L Carbon Dioxide 26 (22-29) mmol/L Anion Gap 12 (12-20) BUN 12 (9-16) mg/dL Creatinine 0.89 (0.5-1.4) mg/dL Estim Creat Clear Calc 114.0 Estimated GFR > 60 Random Glucose 133 H (60-115) mg/dL Calcium 10.1 (8.4-10.2) mg/dL Magnesium 2.1 (1.6-2.6) mg/dL Total Bilirubin 0.4 (0.0-1.0) mg/dL AST 16 (5-37) U/L ALT 20 (0-40) U/L Alkaline Phosphatase 69 (39-117) U/L Troponin I High Sens < 2.7 (<3.5-35.0) ng/L Total Protein 7.4 (6.5-8.0) g/dL Albumin 4.9 (3.5-5.0) g/dL Influenza Type A (PCR) NEGATIVE (Negative) Influenza Type B (PCR) NEGATIVE (Negative) RSV RNA Qual (PCR) NEGATIVE (Negative) SARS-CoV-2 RNA (RT-PCR) NEGATIVE (Negative) Independent Interpretation I performed an independent interpretation of an: EKG and Plain X-Ray Interpretation: My independent review of the patient's two view chest x-ray is as following: No acute disease My independent interpretation patient's 12 EKG done at 09:02 hours is as follows: Normal sinus rhythm rate of 79, normal TX interval, QRS duration QTC interval, no ST segment elevation, no ST segment depression, nonspecific T-wave abnormalities, Q-wave in lead 3, no PACs, no PVCs Discharge Plan Discharge Clinical Impression: Chest pain, Essential (primary) hypertension Patient Disposition: Home, Self-Care Additional Instructions: You had the following tests today: Complete blood count (CBC), comprehensive metabolic panel (CMP), troponin, COVID-19, influenza and RSV, chest x-ray, EKG EKG was normal Troponin, a marker of heart damage was below detectable limits. Kidney and liver tests were normal Blood glucose was elevated 133. COVID-19, influenza and RSV tests were negative. Chest x-ray revealed no pneumonia or other significant abnormalities. At this time I do not think that your chest pain was caused by heart attack or your heart getting enough blood . Your chest pain is most likely caused by muscle pain or possibly by anxiety as well. You are on 2 medications for your blood pressure, if your blood pressure readings continued to be high then your doctor may consider increasing your blood pressure medications starting you on another blood pressure medication. In order to help your doctor make this decision, you need to check your blood pressure on Mondays, Wednesdays and Friday mornings when you are feeling well and not when you are feeling pain or anxious. Write down these blood pressure readings for the next 2 weeks and then review them with your doctor to determine if you need a change in your blood pressure medications. Your hemoglobin A1c from 05/29/2024 was elevated at 6.9 which is consistent with having diabetes. Continue taking your diabetic medications as prescribed by your doctor. Ask your doctor to refer you to a solar electric installer so that you can get on a weight loss program. If you lose 5-10 lb this may improve your blood pressure and your diabetes. Also increasing your exercise to 30 minutes 5 times a week and the should improve your blood pressure and your diabetes as well. Follow-up with your doctor in 2 days. Please return to the emergency department if your symptoms get worse or if you develop any symptoms that are concerning to you. Please see the work note. . Prescriptions: No Action (DME) blood pressure test kit-large [CareTouch BP Monitor] Kit See Rx Instructions .Route Qty: 1 0RF Rx Instructions: As directed (DME) lancets 28 gauge misc See Rx Instructions topical DAILY Qty: 100 3RF Rx Instructions: Use 1 lancet once a day (DME) FreeStyle Test Strip See Rx Instructions .ROUTE .MEDSUPPLY Qty: 50 11RF Rx Instructions: Use 1 test strip once a day fenofibrate 160 mg tablet 160 mg PO DAILY 90 Days Qty: 90 1RF (DME) blood-glucose meter [Accu-Chek Guide Glucose Meter] [facility] See Rx Instructions .Route Qty: 1 0RF Rx Instructions: check glucose once daily (DME) lancets [Accu-Chek [facility]clix [facility]ets] [facility] See [facility]ructions .Route Qty: 100 0RF Rx Instructions: check blood glucose once daily rosuvastatin 10 mg tablet 10 mg PO DAILY Qty: 90 3RF metoprolol succinate 100 mg tablet extended release 24 hr 100 mg PO DAILY 90 Days Qty: 90 2RF lisinopril 40 mg tablet 40 mg PO DAILY 90 Days Qty: 90 3RF (DME) Accu-Chek Guide test strips Strip See Rx Instructions .Route Qty: 100 0RF Rx Instructions: check blood glucose once daily amlodipine 10 mg tablet 10 mg PO DAILY 90 Days Qty: 90 0RF clonazepam 1 mg tablet 1 mg PO BID 30 Days Qty: 60 0RF pioglitazone 15 mg tablet 15 mg PO DAILY 30 Days Qty: 30 3RF Stand Alone Forms: Work/School Release
--- NOTE | 2024-01-13 11:34 | PC.NURSE ---
Patient alert and oriented x 3. Patient c/o 02/10 chest pain radiating to back started at 2am when he was sleeping. Patient states he started a new medication he's wondering if it is caused by the fenofibrate states he already takes crestor for cholesterol. tele: sinus rythym 70-80's Will continue with plan of care awaiting MD's orders.
[2024-01-13 12:54] VITALS: BP 127/82; PULSE 68; RESP 20; TEMP 36.7; O2SAT 100
== END 2024-01-13 16:14 | disposition home or self-care (01) ==
PROVIDERS: Physician Assistant Medical; Emergency Provider Emergency Medicine Emergency Medical Services; PCP Internal Medicine
DX: R07.89 Other chest pain (principal); I10 Essential (primary) hypertension; F33.1 Major depressive disorder, recurrent, moderate; Z11.52 Encounter for screening for COVID-19; Z20.822 Contact with and (suspected) exposure to COVID-19; Z79.899 Other long term (current) drug therapy
CPT/HCPCS: 0241U; 71046; 80053; 83735; 84484; 85025; 93005; 99283; 99285

== ENCOUNTER → 2024-01-13 09:02 | Outpatient (BNV) | payer OTHER, SELFPAY | PROVIDERS: Emergency Provider Emergency Medicine Emergency Medical Services; PCP Internal Medicine; Visit Provider Internal Medicine Cardiovascular Disease | DX: R07.9 Chest pain, unspecified (principal) | CPT/HCPCS: 93010 ==

== ENCOUNTER 2024-01-15 13:59 | Outpatient (AMB) | payer OTHER, SELFPAY ==
--- NOTE | 2024-01-15 14:17 | A.OFFVIS_ITS ---
Intake Vital Signs 01/15/24 14:28 Height 6 ft 1 in Weight 222 lb 6 oz BMI 29.3 BP 136/81 Blood Pressure Location Lt brachial Position Sitting Pulse 106 H Intake Visit Reasons: Unilateral inguinal hernia Intake Note: Patient is seen in office for evaluation of a left inguinal hernia. Pt c/o:had imaging done and was told he has a left inguinal hernia, denies any pain, minor discomfort at time after walking, denies nausea, vomit, diarrhea, constipation Dog Races Manager Required: No Accompanied by: Self / Same As Patient Allergies amoxicillin [AMOXICILLIN] Allergy (Intermediate, Verified 01/15/24 14:32) HIVES cephalexin [CEPHALEXIN] Allergy (Intermediate, Verified 01/15/24 14:32) HIVES doxycycline [DOXYCYCLINE] Allergy (Intermediate, Verified 01/15/24 14:32) HIVES Sulfa (Sulfonamide Antibiotics) Allergy (Intermediate, Verified 01/15/24 14:32) hives Medication List - Last Reconciled 01/15/24 by Rodney Ceballos MD amlodipine 10 mg PO DAILY 90 days blood pressure test kit-large ([employer] Blood Pressure Monitor kit) As directed blood sugar diagnostic (FreeStyle Test strips) Use 1 test strip once a day blood sugar diagnostic (Accu-Chek Guide test strips) check blood glucose once daily blood-glucose meter (Accu-Chek Guide Glucose Meter) check glucose once daily clonazepam 1 mg PO BID 30 days fenofibrate 160 mg PO DAILY 90 days lancets Use 1 lancet once a day lancets (Accu-Chek Softclix Lancets) check blood glucose once daily lisinopril 40 mg PO DAILY 90 days metoprolol succinate ER 100 mg PO DAILY 90 days pioglitazone 15 mg PO DAILY 30 days rosuvastatin 10 mg PO DAILY HPI HPI Comments History of Present Illness Details 58-year-old male patient returning to [facility] office for evaluation of a left inguinal hernia noted on recent CT scan. The CT was performed to follow-up an adrenal tumor. Incidentally noted was a fat containing left inguinal hernia. The patient denies any left inguinal symptoms including palpable lump, pain or constipation. He does have some back discomfort on both sides. He reports a previous history of a right orchiectomy for torsion. He denies any left testicular symptoms. [facility]LY [facility] Medical History Anxiety Essential hypertension Surgical History History of excision of mass (03/10/13) History of orchiectomy (04/17/17) History of colonoscopy (2017) History of surgical removal of ganglion cyst (06/27/17) Family History Father Prostate cancer, Onset Age: 46 Mother Hx of CABG Sister DVT (deep venous thrombosis) Social History Housing: Apartment Alcohol intake: current Alcohol intake frequency: a few times a month Alcohol type: hard liquor Patient Tobacco Use Status: Never used Tobacco e-Cigarette/Vaping Use: Never Used Second Hand Smoke Exposure: No service: No Current occupational status: employed 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 Current occupational exposures/hazards: No Cognitive needs: No Hearing needs: No Vision needs: Yes Review of Systems Const All systems reviewed & are unremarkable except as noted in HPI and below Denies chills, Denies fever(s), Denies headache(s), Denies poor appetite and Denies weakness ENT Denies headache(s) Card Denies chest pain, Denies irregular heart rhythm, Denies palpitations and Denies dyspnea Resp Denies cough, Denies excessive phlegm production and Denies dyspnea GI Denies abdominal pain, Denies bloating, Denies change in bowel habits, Denies constipation, Denies heartburn, Denies diarrhea, Denies nausea and Denies vomiting Denies difficulty urinating and Denies urinary frequency Musc Denies back pain, Denies muscle weakness and Denies numbness Skin/Breast Denies changing lesions and Denies unusual bruising Neuro Denies headache(s), Denies numbness, Denies paresthesias and Denies weakness Psych Denies anxiety and Denies depression Endo Denies palpitations Dragan/Lymph Denies lymphadenopathy Physical Exam Vital Signs: Last Vital Signs Pulse 106 H 01/15/24 14:28 BP 136/81 01/15/24 14:28 BMI result Body Mass Index 29.3 Const General: cooperative and no acute distress Nutritional Appearance: well nourished Orientation/consciousness: patient oriented x3 Limitations: no limitations HEENT Head: Yes normocephalic and Yes atraumatic Ears: hearing grossly normal bilaterally Resp Effort & Inspection: normal respiratory effort, no audible wheezes, no cough and no respiratory distress Cardio Jugular venous distension: no JVD GI Other: Soft, nondistended, nontender, examination of the left groin in the standing position with Valsalva maneuvers revealed no palpable hernia. No hernias noted on the right side as well. Inspection: Yes normal to inspection Skin Other: Warm, dry, no rash Neuro General: patient oriented x3 Extrem General: Yes no clubbing, cyanosis or edema Assessment & Plan Assessment & Plan (1) Left inguinal hernia: Code(s): K40.90 - Unilateral inguinal hernia, without obstruction or gangrene, not specified as recurrent Plan 58-year-old male patient returning for evaluation of a left inguinal hernia noted incidentally on recent CT scan. Patient is asymptomatic and examination reveals no palpable hernia. We discussed the symptoms to be aware of including a palpable lump or discomfort in the left groin. If they should develop, he was encouraged to call for follow-up examination. Coding Level of Care Code Est Pt Level 3 (97520) Diagnoses Left inguinal hernia K40.90
[2024-01-15 14:28] VITALS: BP 136/81; PULSE 106; BMI 29.3
== END 2024-01-15 15:09 | disposition home or self-care (01) ==
PROVIDERS: PCP Internal Medicine; Referring Provider Internal Medicine; Visit Provider Surgery
DX: K40.90 Unilateral inguinal hernia, without obstruction or gangrene, not specified as recurrent (principal)
CPT/HCPCS: 99213

== ENCOUNTER → 2024-01-15 13:59 | Outpatient (BNVA) | payer OTHER, SELFPAY | PROVIDERS: PCP Internal Medicine; Referring Provider Internal Medicine; Visit Provider Surgery ==

== ENCOUNTER 2024-02-12 06:14 | Outpatient (REF) | payer OTHER, SELFPAY ==
[2024-02-12 08:48] LABS: Prostate Specific Antigen 1.74 ng/mL (<0.05-4.0)
== END 2024-02-12 06:15 | disposition home or self-care (01) ==
LOC: HO.LAB 06:14
PROVIDERS: PCP Internal Medicine; Visit Provider Urology
DX: Z12.5 Encounter for screening for malignant neoplasm of prostate (principal); R97.20 Elevated prostate specific antigen [PSA]
CPT/HCPCS: 36415; 84153

== ENCOUNTER 2024-02-17 08:59 | Outpatient (AMB) | payer OTHER, SELFPAY ==
--- NOTE | 2024-02-17 09:12 | MHC.OFFVIS ---
Intake Intake Visit Reasons: 1Y PSA(set)Confirmed Intake Note: Patient is Present for Follow Up Urology Medication: None Antibiotic Allergies: Amoxicillin, Cephalexin, Doxycycline, Sulfa Blood Thinners: None Pharmacy: [facility] Allergies amoxicillin [AMOXICILLIN] Allergy (Intermediate, Verified 02/17/24 09:18) HIVES cephalexin [CEPHALEXIN] Allergy (Intermediate, Verified 02/17/24 09:18) HIVES doxycycline [DOXYCYCLINE] Allergy (Intermediate, Verified 02/17/24 09:18) HIVES Sulfa (Sulfonamide Antibiotics) Allergy (Intermediate, Verified 02/17/24 09:18) hives HPI HPI Comments History of Present Illness Details Chauncey is a pleasant male. He is a patient of Dr. Castro. He is seen for the following urologic issue - family history of prostate cancer - prior to testicular torsion with orchiopexy PSA stable High-risk family TORO 1+ May follow with PCP and follow-up if PSA elevates Patient with family history of prostate cancer - father and uncles have had prostate cancer age between 55 and 65 - discussed question of using finasteride for suppression today - continue to follow PSA - PSA 02/21 1.58, 02/22 2.6, 02/23 1.95, 02/24 1.8 PFSH Medical History Anxiety Essential hypertension Surgical History History of excision of mass (03/10/13) History of orchiectomy (04/17/17) History of colonoscopy (2016) History of surgical removal of ganglion cyst (06/27/17) Family History Father Prostate cancer, Onset Age: 46 Mother Hx of CABG Sister DVT (deep venous thrombosis) Social History Housing: Apartment Alcohol intake: current Alcohol intake frequency: a few times a month Alcohol type: hard liquor Patient Tobacco Use Status: Never used Tobacco e-Cigarette/Vaping Use: Never Used Second Hand Smoke Exposure: No service: No Current occupational status: employed 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 Current occupational exposures/hazards: No Cognitive needs: No Hearing needs: No Vision needs: Yes Review of Systems Const Denies chills and Denies fever(s) Card Reports no additional complaints and Denies syncope Resp Denies cough GI Denies abdominal pain and Denies heartburn Reports as per HPI and Denies change in libido Neuro Denies syncope Psych Denies change in libido Endo Denies change in libido Physical Exam Const General: cooperative, healthy appearing, comfortable and no acute distress Orientation/consciousness: patient oriented x3 HEENT Face and sinus: Yes normal facial exam Mouth: moist mucous membranes Neck Neck: Yes normal visual inspection, Yes full ROM and Yes trachea midline Chest Chest palpation & inspection: normal inspection of the chest Resp Effort & Inspection: normal respiratory effort, able to speak in complete sentences and no respiratory distress GI Inspection: Yes normal to inspection Back/Spine/Pelvis Cervical Spine: normal cervical lordosis Thoracic/Lumbar Spine: thoracic and lumbar spine normal to inspection Skin General skin exam: no rashes or lesions noted Neuro General: patient oriented x3, gait normal, tone normal and moves all extremities Extrem General: Yes normal to inspection and Yes capillary refill normal Assessment & Plan Assessment & Plan (1) Elevated PSA: Code(s): R97.20 - Elevated prostate specific antigen [PSA] Plan P.r.n. follow-up Patient Instructions: Imaging studies, laboratory and physical exam results were discussed and reviewed in detail. No major barriers to patient understanding were identified. An opportunity to ask questions regarding the treatment plan was provided. All questions were answered. The patient expressed understanding and agreement with the above treatment plan. The patient is aware they should contact our office by phone for worsening of their current condition or the appearance of new urologic symptoms. Compliance is encouraged with any medications and followup testing that is ordered. It is a privilege to participate in the urologic care of your patient. If you have any questions or concerns regarding treatment for the above conditions, or other urologic issues, please do not hesitate to contact me. The office telephone contact is [phone]. This note is constructed using voice recognition software. While every effort has been made to ensure accuracy process manager errors may have been included. Yours sincerely, Dr Sahil Mei MD, [facility] - Urology Providers of Expert, Compassionate Care for the Genitourinary System Coding Level of Care Code Est Pt Level 4 (92579) Diagnoses Elevated PSA R97.20
== END 2024-02-17 09:43 | disposition home or self-care (01) ==
PROVIDERS: Visit Provider Urology
DX: R97.20 Elevated prostate specific antigen [PSA] (principal)
CPT/HCPCS: 99213

== ENCOUNTER → 2024-02-17 08:59 | Outpatient (BNVA) | payer OTHER, SELFPAY | PROVIDERS: Visit Provider Urology ==

== ENCOUNTER 2024-04-28 05:59 | Outpatient (REF) | payer OTHER, SELFPAY ==
[2024-04-28 07:49] LABS: Alanine Aminotransferase 18 U/L (0-40); Albumin Level 4.5 g/dL (3.5-5.0); Alkaline Phosphatase 53 U/L (39-117); Anion Gap 16 (12-20); Aspartate Amino Transferase 14 U/L (5-37); Bilirubin Total 0.3 mg/dL (0.0-1.0); Blood Urea Nitrogen 23 mg/dL (9-16); Calcium 9.9 mg/dL (8.4-10.2); Carbon Dioxide 25 mmol/L (22-29); Chloride 105 mmol/L (96-108); Cholesterol 156 mg/dL (<200); Estimated Glomerular Filt Rate > 60; Glucose Fasting 111 mg/dL (60-99); HDL Cholesterol 41 mg/dL (>40); LDL Cholesterol Calculated 57 mg/dL (<100); Potassium 4.4 mmol/L (3.3-5.1); Sodium 142 mmol/L (135-145); Total Protein 7.1 g/dL (6.5-8.0); Triglycerides 290 mg/dL (<150)
[2024-04-28 08:16] LABS: Creatinine Urine 107.27 mg/dL; Microalbumin Urine < 5.0 mg/L
== END 2024-04-28 06:00 | disposition home or self-care (01) ==
LOC: HO.LAB 05:59
PROVIDERS: PCP Internal Medicine; Visit Provider Internal Medicine
DX: E11.9 Type 2 diabetes mellitus without complications (principal); E55.9 Vitamin D deficiency, unspecified; E78.5 Hyperlipidemia, unspecified
CPT/HCPCS: 36415; 80053; 80061; 82043; 82306; 82570

== ENCOUNTER 2024-04-29 13:35 | Outpatient (AMB) | payer OTHER, SELFPAY ==
--- NOTE | 2024-04-29 13:48 | MHC.PC.OV ---
Vital Signs 04/29/24 13:50 04/29/24 14:12 Height 6 ft 1 in Weight 214 lb BMI 28.2 BP 140/90 H 138/90 H Blood Pressure Location Lt brachial Lt brachial Position Sitting Sitting Intake Visit Reasons: dm Main Line Assembler Required: No Accompanied by: Self / Same As Patient Allergies amoxicillin [AMOXICILLIN] Allergy (Intermediate, Verified 04/29/24 14:01) HIVES cephalexin [CEPHALEXIN] Allergy (Intermediate, Verified 04/29/24 14:01) HIVES doxycycline [DOXYCYCLINE] Allergy (Intermediate, Verified 04/29/24 14:01) HIVES Sulfa (Sulfonamide Antibiotics) Allergy (Intermediate, Verified 04/29/24 14:01) hives Medication List - Last Reconciled 04/29/24 by Mercy Castro MD amlodipine 10 mg PO DAILY 90 days blood pressure test kit-large (Shut Down Blood Pressure Monitor kit) As directed blood sugar diagnostic (FreeStyle Test strips) Use 1 test strip once a day blood sugar diagnostic (Accu-Chek Guide test strips) check blood glucose once daily blood-glucose meter (Accu-Chek Guide Glucose Meter) check glucose once daily clonazepam 1 mg PO BID 30 days fenofibrate 160 mg PO DAILY 90 days lancets Use 1 lancet once a day lancets (Accu-Chek Softclix Lancets) check blood glucose once daily lisinopril 40 mg PO DAILY 90 days metoprolol succinate ER 100 mg PO DAILY 90 days pioglitazone 15 mg PO DAILY 30 days rosuvastatin 10 mg PO DAILY spironolactone 25 mg PO BID Tobacco use date assessed: 12/30/23 Dental Screening Dental Screen Date: 12/30/23 HPI HPI Comments History of Present Illness Details This is a 58-year-old male with diabetes mellitus type 2, hypertension, mixed hyperlipidemia and anxiety that comes today for follow-up on his conditions. A1c within goal. Blood pressure stable. LDL within goal. Anxiety well controlled with benzodiazepines as needed. Patient is aware that benzodiazepines can cause addiction and sedation and memory loss. He has intentionally lost some weight. FORMERLY [facility] Medical History (Updated 04/29/24 @ 14:36 by Mercy Castro MD) Adrenal nodule Adrenal disorder Anxiety Essential hypertension Surgical History History of excision of mass (03/10/13) History of orchiectomy (04/17/17) History of colonoscopy (2017) History of surgical removal of ganglion cyst (06/27/17) Family History Father Prostate cancer, Onset Age: 46 Mother Hx of CABG Sister DVT (deep venous thrombosis) Social History Housing: Apartment Alcohol intake: current Alcohol intake frequency: a few times a month Alcohol type: hard liquor Patient Tobacco Use Status: Never used Tobacco e-Cigarette/Vaping Use: Never Used Second Hand Smoke Exposure: No service: No Current occupational status: employed 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 Jordan Beckford, Digna Matt, Jacob Scales and colleagues, with an educational delfino from [employer]. Review of Systems Const All systems reviewed & are unremarkable except as noted in HPI and below Card Denies chest pain at rest, Denies chest pain with activity, Denies edema, Denies irregular heart rhythm, Denies claudication, Denies dyspnea, Denies dyspnea on exertion, Denies orthopnea, Denies paroxysmal nocturnal dyspnea and Denies slow heart rate Resp Denies cough, Denies dyspnea and Denies dyspnea on exertion Physical exam (Primary Care) Vital Signs: Last Vital Signs BP 138/90 H 04/29/24 14:12 BMI result Body Mass Index 28.2 Tobacco/Smoking Status: Tobacco use Status Tobacco use date assessed 12/30/23 04/29/24 13:48 Patient Tobacco Use Status Never used Tobacco 04/29/24 13:48 e-Cigarette/Vaping Use Never Used 04/29/24 13:48 Thrive Assessment: Date of Thrive Assessment Date Thrive assessed 12/30/23 04/29/24 13:48 Resp Effort & Inspection: normal respiratory effort Auscultation: clear to auscultation bilaterally Cardio Jugular venous distension: no JVD Rate: regular rate Rhythm: regular rhythm Heart sounds: S1 normal heart sound present and S2 normal heart sound present Extrem General: Yes full ROM Results AMB Hemoglobin A1c AMB Hemoglobin A1c 6.1 % Last Edit by SHIREEN Greene on 04/29/24 14:02 Results Reviewed Results Reviewed: Laboratory Last Values Hgb A1c (Clinic) 6.1 % (4.0-6.0) H 04/29/24 13:49 Assessment and Plan Assessment & Plan (1) Diabetes mellitus: Code(s): E11.9 - Type 2 diabetes mellitus without complications Qualifiers: Diabetes mellitus type: type 2 Diabetes mellitus rat exterminator insulin use: without custodial use Diabetes mellitus complication status: without complication Qualified Code(s): E11.9 - Type 2 diabetes mellitus without complications Plan: Continue Actos. A1c goal is equal or less than 7%. Continue diabetic yearly eye exam. (2) Mixed hyperlipidemia: Code(s): E78.2 - Mixed hyperlipidemia Plan: Continue statins. LDL goal is less than 70. (3) Essential hypertension: Code(s): I10 - Essential (primary) hypertension Plan: Continue amlodipine and lisinopril. Blood pressure goal is equal or less than 130/80. (4) Anxiety: Code(s): F41.9 - Anxiety disorder, unspecified Plan: Continue benzodiazepines as needed. Orders: Orders AMB Hemoglobin A1c Today E11.9 - Type 2 diabetes mellitus without complications Vitamin D 25-OH Total 5 Months E55.9 - Vitamin D deficiency, unspecified Lipid Panel 5 Months E78.5 - Hyperlipidemia, unspecified Microalbumin, Random (w Creat) 5 Months E11.9 - Type 2 diabetes mellitus without complications Comprehensive [place]. Panel Fast 5 Months E11.9 - Type 2 diabetes mellitus without complications Medications: New cholecalciferol (vitamin D3) 50 mcg PO DAILY 90 caps 1RF 90 days Coding Level of Care Code Est Pt Level 4 (88024) Complex EM visit Add On G2211 Diagnoses Type 2 diabetes mellitus without complication, without long-term current use of insulin E11.9 Diabetes mellitus type: type 2 Diabetes mellitus rat exterminator insulin use: without rat exterminator use Diabetes mellitus complication status: without complication Mixed hyperlipidemia E78.2 Essential hypertension I10 Anxiety F41.9 Time Spent (min) 22
[2024-04-29 13:50] VITALS: BP 140/90; BMI 28.2
[2024-04-29 14:12] VITALS: BP 138/90
== END 2024-04-29 14:12 | disposition home or self-care (01) ==
PROVIDERS: PCP Internal Medicine; Visit Provider Internal Medicine
DX: E11.9 Type 2 diabetes mellitus without complications (principal); E78.2 Mixed hyperlipidemia; I10 Essential (primary) hypertension; F41.9 Anxiety disorder, unspecified
CPT/HCPCS: 83036; 99214; G2211

== ENCOUNTER 2024-06-09 12:38 | Outpatient (REF) | payer BC, SELFPAY ==
[2024-06-13 16:18] LABS: Metanephrine, Free 38 pg/mL (<=57); Normetanephrines, Free 146 pg/mL (<=148); Total Metanephrine, Free 184 pg/mL (<=205)
[2024-06-24 17:27] LABS: Renin 73.62 ng/mL/h (0.25-5.82)
== END 2024-06-09 12:39 | disposition home or self-care (01) ==
LOC: HO.LAB 12:38
PROVIDERS: PCP Internal Medicine; Visit Provider Internal Medicine Endocrinology, Diabetes & Metabolism
DX: E27.9 Disorder of adrenal gland, unspecified (principal)
CPT/HCPCS: 36415; 82088; 83835; 84244

== ENCOUNTER 2024-06-26 07:22 | Outpatient (REF) | payer BC, SELFPAY ==
[2024-06-26 08:45] LABS: Cortisol Random 1.3 ug/dL
== END 2024-06-26 07:23 | disposition home or self-care (01) ==
LOC: HO.LAB 07:22
PROVIDERS: PCP Internal Medicine; Visit Provider Internal Medicine Endocrinology, Diabetes & Metabolism
DX: D44.12 Neoplasm of uncertain behavior of left adrenal gland (principal); I10 Essential (primary) hypertension
CPT/HCPCS: 36415; 82533

== ENCOUNTER 2024-07-10 07:51 | Outpatient (REF) | payer BC, SELFPAY ==
[2024-07-10 09:41] LABS: Blood Urea Nitrogen 14 mg/dL (9-16); Estimated Glomerular Filt Rate > 60
[2024-07-20 13:04] LABS: Renin 11.87 ng/mL/h (0.25-5.82)
== END 2024-07-10 07:52 | disposition home or self-care (01) ==
LOC: HO.LAB 07:51
PROVIDERS: PCP Internal Medicine; Visit Provider Physician Assistant
DX: D44.12 Neoplasm of uncertain behavior of left adrenal gland (principal); E27.9 Disorder of adrenal gland, unspecified; E27.0 Other adrenocortical overactivity; I10 Essential (primary) hypertension
CPT/HCPCS: 36415; 82088; 82565; 84244; 84520

== ENCOUNTER 2024-07-28 08:16 | Outpatient (REF) | payer BC, SELFPAY ==
--- NOTE | ~2024-07-28 | CT_ITS ---
EXAMINATION: CT ABDOMEN WITH CONTRAST CLINICAL INFORMATION: Neoplasm, left adrenal gland. COMPARISON: CT dated October 31, 2023 TECHNIQUE: Contiguous axial thin section helical images of the abdomen were performed following the administration of 85 mL of Omnipaque 350 intravenous contrast without reported immediate complications. The data set was reformatted in the coronal and sagittal planes and reviewed on an independent workstation. This CT examination was performed using dose optimization techniques as appropriate, variously including the following: *Automated exposure control *Adjustment of mA and/or kV according to patient size (this includes techniques or standardized protocols for targeted exams where dose is matched to indication/reason for exam; i.e. extremities or head) *Use of iterative reconstruction technique DLP: 355 mGy-cm FINDINGS: Exam submitted for interpretation on September 10, 2024. Inadequate adrenal mass protocol. No IV contrast initial scan acquired. No arterial phase acquisition. There is a 1.8 cm isodense nodule in the left adrenal gland which measures 63 Hounsfield units during the portal venous phase and 21 Hounsfield units delayed washed out phase. Right adrenal gland demonstrates no nodular lesions. Visualized portions of the liver parenchyma demonstrated no gross masses. The portal veins, hepatic veins and intrahepatic portion of the IVC included in the exam are patent. No pericholecystic fluid collection or gallbladder wall thickening. Common bile duct measures 3 mm. No focal pancreatic mass or peripancreatic fluid collections. No main pancreatic ductal dilatation. Kidneys demonstrate no hydronephrosis. There is a 2.5 cm exophytic cyst in the lower pole of the left kidney. Calcified plaques in the infrarenal distal abdominal aorta. No aneurysm or dissection, abdominal aorta. No intestinal obstruction pattern. No ascites. No pneumoperitoneum. No pneumatosis intestinalis. No gross lymphadenopathy in the included retroperitoneum or mesenteric. Small fat-containing umbilical hernia. Pulmonary patchy groundglass in the included lungs. Multilevel thoracolumbar spondylosis without acute fracture or gross listhesis. CT/CT abdomen w IV con IMPRESSION: Lipid poor adenoma, left adrenal gland. Fleischner guidelines were followed. Electronically signed by: Aodnis Stark MD 09/10/2024 11:40 AM [facility] [place]
[2024-07-28] MEDS: iohexoL 350 MG/ML 100 ML INFUS..BTL 85 ML IV (09:50)
== END 2024-07-28 08:17 | disposition home or self-care (01) ==
LOC: HO.CT 08:16
PROVIDERS: PCP Internal Medicine; Visit Provider Physician Assistant
DX: D44.12 Neoplasm of uncertain behavior of left adrenal gland (principal)
CPT/HCPCS: 74160; Q9967

== ENCOUNTER → 2024-07-28 08:18 | Outpatient (BNV) | payer BC, SELFPAY | PROVIDERS: PCP Internal Medicine; Visit Provider Radiology Diagnostic Radiology | DX: D44.12 Neoplasm of uncertain behavior of left adrenal gland (principal) | CPT/HCPCS: 74160 ==

== ENCOUNTER 2024-09-16 06:02 | Outpatient (REF) | payer BC, SELFPAY ==
[2024-09-16 08:19] LABS: Alanine Aminotransferase 21 U/L (0-40); Albumin Level 4.4 g/dL (3.5-5.0); Alkaline Phosphatase 53 U/L (39-117); Anion Gap 16 (12-20); Aspartate Amino Transferase 31 U/L (5-37); Bilirubin Total 0.3 mg/dL (0.0-1.0); Blood Urea Nitrogen 12 mg/dL (9-16); Calcium 9.8 mg/dL (8.4-10.2); Carbon Dioxide 25 mmol/L (22-29); Chloride 104 mmol/L (96-108); Cholesterol 152 mg/dL (<200); Estimated Glomerular Filt Rate > 60; Glucose Fasting 104 mg/dL (60-99); HDL Cholesterol 37 mg/dL (>40); LDL Cholesterol Calculated 52 mg/dL (<100); Sodium 141 mmol/L (135-145); Total Protein 6.8 g/dL (6.5-8.0); Triglycerides 319 mg/dL (<150)
[2024-09-16 08:33] LABS: PSA,Total (Free>4and<10) 2.04 ng/mL (0.00-4.00)
[2024-09-16 08:38] LABS: Vitamin D 25-OH Total 44.6 ng/mL (>30)
[2024-09-16 09:34] LABS: Creatinine Urine 161.53 mg/dL
== END 2024-09-16 06:03 | disposition home or self-care (01) ==
LOC: HO.LAB 06:02
PROVIDERS: PCP Internal Medicine; Visit Provider Internal Medicine
DX: E11.9 Type 2 diabetes mellitus without complications (principal); E78.5 Hyperlipidemia, unspecified; E55.9 Vitamin D deficiency, unspecified; R35.1 Nocturia; Z12.5 Encounter for screening for malignant neoplasm of prostate
CPT/HCPCS: 36415; 80053; 80061; 82043; 82306; 82570; 84153

== ENCOUNTER 2024-09-21 15:34 | Outpatient (REF) | payer BC, SELFPAY ==
--- NOTE | ~2024-09-21 | XR_ITS ---
EXAMINATION: XR LUMBOSACRAL SPINE CLINICAL INFORMATION: M54.50 - Low back pain, unspecified COMPARISON: X-ray dated January 07, 2019 TECHNIQUE: Three views of the lumbosacral spine. FINDINGS: Submitted for interpretation on October 12, 2024. Multilevel marginal osteophyte formation and endplate sclerosis with decreased intervertebral disc height. No acute cortical disruption or gross malalignment. No lytic or blastic lesions. Degenerative changes at the sacrococcyx junction. Vascular calcifications. XR/XR lumbar spine 2-3V IMPRESSION: Multilevel spondylosis without acute fracture or listhesis. Electronically signed by: Adonis Stark MD 10/12/2024 12:28 PM EST
--- NOTE | ~2024-09-21 | XR_ITS ---
EXAMINATION: XR SHOULDER, RIGHT CLINICAL INFORMATION: M25.511 - Pain in right shoulder COMPARISON: X-ray dated November 13, 2007 TECHNIQUE: AP external rotation, Grashey, scapular Y, and axillary views of the right shoulder. FINDINGS: Submitted for interpretation on October 12, 2024. Degenerative changes in the acromioclavicular joint. No acute cortical disruption or malalignment. 3 mm calcification in the superior margin of soft tissues right glenoid fossa only seen on the AP projection. No lytic or blastic lesions. XR/XR shoulder RT min 2V IMPRESSION: No acute fracture or dislocation. Electronically signed by: Adonis Stark MD 10/12/2024 12:26 PM MERE NICHOLAS
--- NOTE | ~2024-09-21 | XR_ITS ---
EXAMINATION: XR CERVICAL SPINE CLINICAL INFORMATION: M54.2 - Cervicalgia COMPARISON: X-ray dated August 03, 2012. TECHNIQUE: 3 views of the cervical spine were obtained. FINDINGS: Submitted for interpretation on October 12, 2024. Craniocervical junction is intact. Marginal osteophyte formation and syndesmophyte formation C4-5, C5-6 and C6-7 levels. 20% volume loss likely degenerative at C5. No acute cortical disruption or gross malalignment. No lytic or blastic lesions. XR/XR cervical spine 2V IMPRESSION: Multilevel spondylosis C4 C7 more conspicuous at C5-6. Electronically signed by: Adonis Stark MD 10/12/2024 12:27 PM MERE
== END 2024-09-21 15:35 | disposition home or self-care (01) ==
LOC: HO.XRAY 15:34
PROVIDERS: PCP Internal Medicine; Visit Provider Internal Medicine
DX: M54.2 Cervicalgia (principal); M25.511 Pain in right shoulder; M54.50 Low back pain, unspecified; Z13.1 Encounter for screening for diabetes mellitus
CPT/HCPCS: 72040; 72100; 73030; 83036

== ENCOUNTER 2024-09-21 15:34 | Outpatient (AMB) | payer BC, SELFPAY ==
--- NOTE | 2024-09-21 15:47 | MHC.PC.OV ---
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 Accompanied by: Self / Same As Patient Allergies amoxicillin [AMOXICILLIN] Allergy (Intermediate, Verified 09/21/24 16:06) HIVES cephalexin [CEPHALEXIN] Allergy (Intermediate, Verified 09/21/24 16:06) HIVES doxycycline [DOXYCYCLINE] Allergy (Intermediate, Verified 09/21/24 16:06) HIVES Sulfa (Sulfonamide Antibiotics) Allergy (Intermediate, Verified 09/21/24 16:06) hives Medication List - Last Reconciled 09/21/24 by Mercy Castro MD amlodipine 10 mg PO DAILY 90 days blood pressure test kit-large (Furnish.co[employer]ukuch Blood Pressure Monitor kit) As directed blood sugar diagnostic (FreeStyle Test strips) Use 1 test strip once a day blood sugar diagnostic (Accu-Chek Guide test strips) check blood glucose once daily blood-glucose meter (Accu-Chek Guide Glucose Meter) check glucose once daily cholecalciferol (vitamin D3) 50 mcg PO DAILY 90 days clonazepam 1 mg PO BID 30 days fenofibrate 160 mg PO DAILY 90 days lancets Use 1 lancet once a day lancets (Accu-Chek Softclix Lancets) check blood glucose once daily lisinopril 40 mg PO DAILY 90 days metoprolol succinate ER 100 mg PO DAILY 90 days repaglinide 0.5 mg PO TID 30 days rosuvastatin 10 mg PO DAILY spironolactone 25 mg PO BID Tobacco use date assessed: 12/30/23 Dental Screening Dental Screen Date: 09/21/24 Did you have a dental visit in the last 12 months?: Yes Did you have a dental problem in the last 6 months where you did not have access to dental care?: No Was dental information given to patient?: Patient has dentist HPI HPI Comments History of Present Illness Details The patient is a 59-year-old male presenting for his physical exam. HE has right shoulder pain. The patient reports falling approximately one month ago in the bathroom. During the fall, he hit a wall and subsequently fell to the floor, impacting his right shoulder. Since the incident, he has been unable to lift his right arm, and experiences exacerbated pain when sleeping with a pillow under his head, alleviating when removed. The pain is localized to the shoulder area and is aggravated by movement. There is no mention of swelling, bruising, or visible deformity reported since the fall. No prior interventions have been successful in addressing the pain since it began. The patient denies any history of incontinence or tobacco use. He has a history of essential hypertension treated with a regimen including amlodipine, lisinopril, metoprolol, and spironolactone. He also manages type 2 diabetes mellitus with careful monitoring, recently achieving an HbA1c level of 5.6%. Last diabetic eye exam was February of this year. His medical history includes hypertriglyceridemia and hyperlipidemia, for which he is on fenofibrate and rosuvastatin, respectively. Past surgical history is significant for an orchiectomy. Family history includes a father who had prostate cancer. Colonoscopy was done 2016 and was normal. [facility] Medical History (Updated 09/21/24 @ 16:23 by Mercy Castro MD) Adrenal nodule Adrenal disorder Anxiety Essential hypertension Surgical History History of excision of mass (03/10/13) History of orchiectomy (04/17/17) History of colonoscopy (2016) History of surgical removal of ganglion cyst (06/27/17) Family History Father Prostate cancer, Onset Age: 46 Mother Hx of CABG Sister DVT (deep venous thrombosis) Social History Housing: Apartment Alcohol intake: current Alcohol intake frequency: a few times a month Alcohol type: hard liquor Patient Tobacco Use Status: Never used Tobacco e-Cigarette/Vaping Use: Never Used Second Hand Smoke Exposure: No service: No Current occupational status: employed 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 Jordan Beckford, Digna Matt, Jacob Scales and colleagues, with an educational delfino from [employer]. Review of Systems Const All systems reviewed & are unremarkable except as noted in HPI and below ENT Reports neck pain Card Denies chest pain at rest, Denies chest pain with activity, Denies edema, Denies irregular heart rhythm, Denies claudication, Denies orthopnea, Denies paroxysmal nocturnal dyspnea and Denies slow heart rate Musc Reports back pain, Reports arthralgias and Reports neck pain Neuro Denies behavioral changes and Denies lack of coordination Psych Denies behavioral changes Physical exam (Primary Care) Vital Signs: Last Vital Signs BP 130/80 09/21/24 15:50 BMI result Body Mass Index 29.2 BMI Assessment/Plan discussion: High BMI High, discussed plan: lifestyle, weight reduction, dietary and physical activity Tobacco/Smoking Status: Tobacco use Status Tobacco use date assessed 12/30/23 09/21/24 15:49 Patient Tobacco Use Status Never used Tobacco 09/21/24 15:49 e-Cigarette/Vaping Use Never Used 09/21/24 15:49 Thrive Assessment: Date of Thrive Assessment Date Thrive assessed 12/30/23 09/21/24 15:49 [facility] Head: Yes normal to inspection, Yes normocephalic and Yes atraumatic Ears: external ears normal Eyes General: appearance normal, both eyes and all related structures Eyelids: Yes eyelids normal Conjunctivae: conjunctivae normal Neck Neck: Yes normal visual inspection and Yes supple Resp Effort & Inspection: normal respiratory effort Auscultation: clear to auscultation bilaterally Cardio Jugular venous distension: no JVD Rate: regular rate Rhythm: regular rhythm Heart sounds: S1 normal heart sound present and S2 normal heart sound present GI Inspection: Yes normal to inspection Palpation (GI): Soft to palpation and nontender Auscultation: normal bowel sounds Skin General skin exam: no rashes or lesions noted Neuro General: no focal motor deficits Extrem General: Yes full ROM Psych Appearance: grossly normal Results AMB Hemoglobin A1c AMB Hemoglobin A1c 5.6 % Last Edit by SHIREEN Greene on 09/21/24 16:07 Coding Level of Care Code Est Pt Level 4 (71060) Est Pt Prev Care 40-64y(32656) Diagnoses Physical exam Z00.00 Type 2 diabetes mellitus without complication, without long-term current use of insulin E11.9 Diabetes mellitus type: type 2 Diabetes mellitus moth exterminator insulin use: without jail use Diabetes mellitus complication status: without complication Neck pain M54.2 Right shoulder pain M25.511 Lumbar pain M54.50 Time Spent (min) 35 Assessment & Plan Assessment & Plan (1) Physical exam: Code(s): Z00.00 - Encounter for general adult medical examination without abnormal findings Category: Medical (2) Diabetes mellitus: Code(s): E11.9 - Type 2 diabetes mellitus without complications Category: Medical Qualifiers: Diabetes mellitus type: type 2 Diabetes mellitus moth exterminator insulin use: without moth exterminator use Diabetes mellitus complication status: without complication Qualified Code(s): E11.9 - Type 2 diabetes mellitus without complications (3) Neck pain: Code(s): M54.2 - Cervicalgia Category: Medical (4) Right shoulder pain: Code(s): M25.511 - Pain in right shoulder Category: Medical (5) Lumbar pain: Code(s): M54.50 - Low back pain, unspecified Category: Medical Plan - Right shoulder pain: Plan to obtain diagnostic imaging to evaluate the extent of injury and physical therapy referral for shoulder mobilization. - Allergic reactions: Reinforce the avoidance of known allergens, including amoxicillin, cephalexin, doxycycline, and sulfates. - Hypertension: Continue current regimen of amlodipine, lisinopril, metoprolol, and spironolactone. - Hyperlipidemia: Continue rosuvastatin treatment and follow-up on cholesterol levels. - Type 2 Diabetes Mellitus: Continue current management plan; monitor glucose and maintain dietary recommendations. - Anxiety: Maintain treatment with clonazepam with periodic evaluation. - Follow up with eye exam and urologist as scheduled. Patient was informed and verbally consented to the use of an ambient scribe for clinic note documentation during this visit. I discussed the current issue with the patient's right shoulder pain, likely resulting from the fall he experienced. I advised obtaining diagnostic imaging to further investigate the extent of the shoulder injury. We discussed the benefits of physical therapy to improve shoulder mobility and alleviate the pain experienced, especially during night-time. We reviewed the importance of adhering to the current medication regimen for his chronic conditions and discussed the good control of his HbA1c and lipid levels. No immediate adjustments to his current medications were advised given the ongoing control of his conditions. I reminded him of his upcoming follow-up appointments with nephrology, as well as the importance of regular screenings and monitoring as part of his chronic care management. Orders: Orders XR cervical spine 2V Today M54.2 - Cervicalgia Lipid Panel 4 Months E78.5 - Hyperlipidemia, unspecified Microalbumin, Random (w Creat) 4 Months R80.9 - Proteinuria, unspecified Comprehensive [place]. Panel Fast 4 Months E11.9 - Type 2 diabetes mellitus without complications AMB Hemoglobin A1c Today E11.9 - Type 2 diabetes mellitus without complications XR shoulder RT min 2V Today M25.511 - Pain in right shoulder XR lumbar spine 2-3V Today M54.50 - Low back pain, unspecified PT Evaluation and Treatment Today M25.511 - Pain in right shoulder Vitamin D 25-OH Total 4 Months E55.9 - Vitamin D deficiency, unspecified Medications: New fluocinolone acetonide oil 0.01% (DermOtic Oil) 5 drps otic (ear) right BID 7 days 20 mL 0RF
[2024-09-21 15:50] VITALS: BP 130/80; BMI 29.2
== END 2024-09-21 16:22 | disposition home or self-care (01) ==
PROVIDERS: PCP Internal Medicine; Visit Provider Internal Medicine
DX: Z00.00 Encounter for general adult medical examination without abnormal findings (principal); E11.9 Type 2 diabetes mellitus without complications; M54.2 Cervicalgia; M25.511 Pain in right shoulder; M54.50 Low back pain, unspecified

== ENCOUNTER → 2024-09-21 16:45 | Outpatient (BNV) | payer BC, SELFPAY | PROVIDERS: PCP Internal Medicine; Visit Provider Radiology Diagnostic Radiology | DX: M25.511 Pain in right shoulder (principal); M47.896 Other spondylosis, lumbar region; M54.2 Cervicalgia | CPT/HCPCS: 72040; 72100; 73030 ==

== ENCOUNTER 2024-10-22 10:26 | Outpatient (RCR) | payer BC, SELFPAY ==
[2024-10-22 09:59] VITALS: BP 137/86; PULSE 95
--- NOTE | 2024-10-22 10:51 | MHC.PT.EP ---
[facility] [place] Office [place] Office [place] Office [address] [phone] F: [phone] F: [phone] F: [phone] F: [phone] Physical Therapy Plan of Care Date of Evaluation: 10/22/24 Date of Surgery: NA Diagnosis: Pain in R shoulder Assessment: Chauncey is a 59 year old male who is referred to PT for pain in R shoulder . Pt reports of having pain in R shoulder for last 2.5 months secondary to fall on outstretched arm. His pain has gotten worse over the last 2 months. Fracture has bene ruled out. On PT examination he presents with TTP over pec and supraspinatus tendon, 8/10 pain with over head shoulder movements, exercising, R SL, decreased R shoulder ROM, decreased R shoulder and scap strength and altered posture. He lives alone and is independent with ADLS but does them with L UE. Has pain when he uses R UE for ADLS. 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 He would benefit from skilled PT to address the aforementioned impairments and improve tolerance to functional activities. Frequency and Duration: The patient will be seen 2/week for 5 weeks Short Term Goals: 1. Pt will have 50% decrease in pain which will enable him to sleep on R side without pain in 2 weeks 2. Pt will be able to move R shoulder through full plane of motion without pain which will enable him to dress his upper body without pain in 3 weeks Lift Supervisor Goals: 1. Pt will demonstrate an increase in muscle strength by 1 grade which will enable him to use his R UE without pain for ADLS in 5 weeks. 2. Pt will be independent with HEP and return to PLOF in 5 weeks. Treatment Plan: Modalities to reduce pain, spasms and effusion. Manual therapy to restore motion and function. Therapeutic exercise to improve strength and flexibility. Neuromuscular re-education for posture and balance. Therapeutic activities to return to functional activities of daily living. Electronically signed by: Zenaida Ferguson PT DPT Please sign and return to therapist. Thank you for your referral.
--- NOTE | 2024-11-16 13:48 | MHC.PT.DC ---
[facility] [place] Office [place] Office [place] Office [address] [phone] F: [phone] F: [phone] F: [phone] F: [phone] Physical Therapy Discharge Report Diagnosis: Pain in R shoulder Date of Surgery: NA Date of Evaluation: 10/22/24 Date of Discharge: 11/16/24 Treatments to Date: 1 Cancellations to Date: 0 No Shows to Date: 0 Discharge Status: Patient Elected to Stop Discharge Summary: Chauncey came in for evaluation and d/c himself from PT stating he was in too much pain with exercises. Electronically signed by: Zenaida Ferguson PT DPT Please sign and return to therapist. Thank you for your referral.
== END 2024-11-16 13:48 | disposition home or self-care (01) ==
LOC: HO.PT 10:26
PROVIDERS: PCP Internal Medicine; Visit Provider Internal Medicine
DX: M25.511 Pain in right shoulder (principal)
CPT/HCPCS: 97110; 97161

== ENCOUNTER 2025-01-10 12:58 | Outpatient (REF) | payer BC, SELFPAY ==
--- OUTSIDE RECORDS SUMMARY | 2025-01-10 14:35 | XMS_ITS | Continuity of Care Document ---
Author Organization [facility] Address [address] [place] [address] Phone [phone] Care Team Providers Care Director Of Primary Care Name Role Phone Mercy Solis MD Care Team Information Receiv er [phone] Problems Active Problems Provider Date Anxiety DALILA Pak Onset: 2023 Essential hypertension DALILA Pak Onset: 11/26/2023 Social History Type Date Description Comments Sex Unknown Tobacco Use Start: Unknown Never Smoked Cigarettes ETOH Use Occasionally consumes alcoho l Allergies and adverse reactions Active Allergies Criticality Reaction Severity Comments Date Cephalexin Unable to assess criticality 11/26/2023 Doxycycline Unable to assess criticality 11/26/2023 Amoxicillin Unable to assess criticality 11/26/2023 Sulfamethoxazole Unable to assess criticality 11/26/2023 Medications Active Medications SIG Qnty Indications Ordering Provider Date Oxmkaokclqgaq2in Tablets 1 tablet by mouth at 11 pm 1tabs Angie Cummings M.D. 06/14/2024 Puisdyuvsu7wc Tablets Take 1 Tablet (1 MG) Orally 2 Times A Day For 30 Days Mercy Cole Metoprolol Succinate EW375ja Tablets ER 24HR Take 1 Tablet By Mouth Every Day Mercy Cole Vygseqvwmf38zw Tablets Take 1 Tablet By Mouth Every Day Mercy Cole Amlodipine Eovhrohb00kl Tablets Take 1 Tablet By Mouth Every Day Mercy Cole Rosuvastatin Hmfybht82iv Tablets Take 1 Tablet (10 MG) Orally Daily Mercy Cole Accu-Chek GuideStrips Check Blood Glucose Once Daily Clayton Castro Mercy Shvupejoeet212pi Tablets Take 1 Tablet By Mouth Every Day Clayton CastroMercy Jsibcnnxcgtvwx06su Tablets Take 1 Tablet By Mouth Twice A Day Unknown Pioglitazone HEB08kt Tablets Take 1 Tablet By Mouth Every Day Clayton Castro [facility]cy History Medications Labetalol HYM715qa Tablets Take 1 tablet by mouth twice a day 20tabs Angie boyle M.D. 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 Assessments Date Code Description Provider 06/14/2024 D44.12 Neoplasm of unce rtain behavior of left adrenal gland DALILA Pak Plan of Treatment Future Appointment(s):* 02/07/2025 8:00 am - DALILA Pak at Main Office 06/14/2024 - DALILA Pak* 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
[2025-01-11 12:28] LABS: Rubella IgG Antibody 3.23 Index
== END 2025-01-10 12:59 | disposition home or self-care (01) ==
LOC: HO.LAB 12:58
PROVIDERS: PCP Internal Medicine; Visit Provider Internal Medicine
DX: Z23 Encounter for immunization (principal)
CPT/HCPCS: 36415; 86735; 86762; 86765

== ENCOUNTER 2025-01-12 05:14 | Emergency (ER) | payer BC, SELFPAY ==
--- NOTE | ~2025-01-12 | CT_ITS ---
EXAMINATION: CT ABDOMEN AND PELVIS WITH CONTRAST CLINICAL INFORMATION: Right lower quadrant pain. Right flank pain. COMPARISON: July 28, 2024. TECHNIQUE: Multidetector volumetric images were obtained from the superior aspect of the liver through the pubic symphysis following administration 85 mL of Omnipaque 350 intravenous contrast. Sagittal and coronal reformatted images were obtained on the technologist's workstation. Oral contrast: No This CT examination was performed using dose optimization techniques as appropriate, variously including the following: *Automated exposure control *Adjustment of mA and/or kV according to patient size (this includes techniques or standardized protocols for targeted exams where dose is matched to indication/reason for exam; i.e. extremities or head) *Use of iterative reconstruction technique. DLP: 650 mGy centimeter. FINDINGS: LUNG BASES: No acute airspace disease. There is a 2 mm subpleural pulmonary nodule, right lower lung lobe.. LIVER, GALLBLADDER, AND BILIARY TREE: Liver measures 23 cm. 3 mm hypodensity right hepatic lobe too small to be fully characterized. Main portal veins, hepatic veins and intrahepatic portion of the IVC are patent. No intrahepatic biliary ductal dilatation. No pericholecystic fluid collection or gallbladder wall thickening. Common bile duct measures 3 mm. PANCREAS: No focal mass. No peripancreatic fluid collection. No main pancreatic ductal dilatation. SPLEEN: 9 cm. No focal lesion. Small accessory spleen. ADRENAL GLANDS: Soft tissue fullness without nodular lesions. KIDNEYS AND URETERS: No hydronephrosis. No nephrolithiasis. Subcentimeter probably septated cystic lesions in the right kidney. 2 cm exophytic cyst lower pole left kidney. BLADDER: Fluid-filled. GASTROINTESTINAL TRACT: Appendix is normal. Numerous diverticula, left hemicolon. Abundant stool. No intestinal obstruction pattern. No pneumatosis intestinalis. No gross intestinal wall thickening. No ascites. No peripheral enhancing fluid collection peritoneal cavity. ABDOMINAL WALL: Small tiny fat-containing umbilical hernia and diastases abdominal rectus muscles. LYMPH NODES: Nonspecific prominent periiliac lymph nodes. VASCULAR: There calcified plaques in the iliac arteries. No aneurysm or dissection abdominal aorta. PELVIC VISCERA: 7 cm heterogeneously enhancing enlarged prostate gland protruding upon the urinary bladder floor. OSSEOUS STRUCTURES: Spondylosis, L4-5 and L5-S1. Spina bifida occulta S1. Syndesmophyte formation and both sacroiliac joints. No acute fracture or listhesis. Multilevel lower thoracic spondylosis. 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 CT/CT abdomen pelvis w IV con IMPRESSION: 7 cm enlarged prostate gland. Consider benign prostate hyperplasia versus malignancy. Diverticular disease, left hemicolon. Hepatomegaly. No hydronephrosis or nephrolithiasis. Bilateral renal cysts. Appendix is normal. Fleischner guidelines were followed. Electronically signed by: Adonis Stark MD 01/12/2025 08:27 AM EDT
[2025-01-12 05:30] VITALS: BP 148/86; PULSE 84; RESP 18; TEMP 36.9; O2SAT 98; BMI 29.3
[2025-01-12 05:44] LABS: Basophils Percent Auto 0.5 % (0-2); Eosinophils Absolute Auto 0.1 X10*3/uL (0.0-0.4); Eosinophils Percent Auto 1.9 % (0-4); Hematocrit 39.7 % (42.0-52.0); Hemoglobin 13.4 g/dl (14.0-18.0); Imm Gran Abs Auto 0.02 X10*3/uL (0.00-0.03); Imm Gran Pct Auto 0.3 % (0.0-0.4); Lymphocytes Absolute Auto 1.3 X10*3/uL (1.2-4.9); Lymphocytes Percent Auto 21.2 % (20-40); MANUAL DIFF FLAG NO; Mean Corpuscular HGB Conc 33.8 g/dl (31.0-36.0); Mean Corpuscular Volume 85.9 fL (80.0-98.0); Mean Platelet Volume 9.4 fL (9.4-12.4); Monocytes Absolute Auto 0.6 X10*3/uL (0.1-1.2); Monocytes Percent Auto 9.2 % (2-11); Neutrophils Absolute Auto 4.1 x10*3/uL (2.0-8.3); Neutrophils Percent Auto 66.9 % (45-73); Platelet Count 214 X10*3/uL (160-400); Red Blood Count 4.62 X10*6/uL (4.60-5.80); Red Cell Distribution Width 13.7 % (11.0-16.0); White Blood Count 6.2 X10*3/uL (4.8-10.8)
[2025-01-12 05:52] LABS: Appearance Urine Clear; Color Urine Yellow; Glucose Urine UA Negative (Negative); Leukocyte Esterase Urine Negative (Negative); Nitrite Urine Negative (Negative); Specific Gravity - Urine 1.015 (1.005-1.025); Urine Blood Negative (Negative); Urine Ketones Negative (Negative); Urine Protein Negative (Neg-Trace)
[2025-01-12 05:57] LABS: Alanine Aminotransferase 17 U/L (0-40); Albumin Level 4.3 g/dL (3.5-5.0); Alkaline Phosphatase 66 U/L (39-117); Anion Gap 16 (12-20); Aspartate Amino Transferase 19 U/L (5-37); Bilirubin Total 0.3 mg/dL (0.0-1.0); Blood Urea Nitrogen 11 mg/dL (9-16); Calcium 9.9 mg/dL (8.4-10.2); Carbon Dioxide 22 mmol/L (22-29); Chloride 106 mmol/L (96-108); Creatinine Clr Calc Pharmacy 99.5; Estimated Glomerular Filt Rate > 60; Glucose Random 129 mg/dL (60-115); Sodium 140 mmol/L (135-145); Total Protein 7.2 g/dL (6.5-8.0)
[2025-01-12 05:57] LABS: Bacteria Urine None Seen (None Seen); Hyaline Casts Urine 0-2 /LPF (0-2); RBC Urine 0-2 /HPF (0-2); Squamous Epithelial Cell Urine 0-2 /HPF (0-2); WBC Urine 0-5 /HPF (0-5)
--- NOTE | 2025-01-12 07:08 | ED_ITS ---
HPI - Abdominal Pain General Chief Complaint: Abdominal Pain Stated Complaint: abd pain Time Seen by Provider: 01/12/25 07:00 History of Present Illness HPI narrative: Patient is a 59-year-old male with a history of diabetes, hypertension, hypercholesterolemia now have pain to the right side it began 3 days prior. Comes and goes sometimes goes to the right flank there is no vomiting there is no diarrhea there is no change in bowel movement there is no pain on urination patient is from home. No coughing or congestion or upper respiratory symptoms. Related Data Home Medications ?Medication ?Instructions ?Recorded ?Confirmed spironolactone 25 mg tablet 25 mg PO BID 04/29/24 09/21/24 Previous Rx's ?Medication ?Instructions ?Recorded blood pressure test kit-large #1 ea 08/01/21 (CardioMEMS Blood Pressure Monitor kit) lancets 28 gauge #100 ea 07/24/22 blood sugar diagnostic (FreeStyle #50 ea 12/24/22 Test strips) blood-glucose meter (Accu-Chek #1 ea 01/09/23 Guide Glucose Meter) rosuvastatin 10 mg tablet 10 mg PO DAILY #90 tabs 03/27/24 fenofibrate 160 mg tablet 160 mg PO DAILY 90 days #90 tabs 04/29/24 blood sugar diagnostic (Accu-Chek #100 ea 06/26/24 Guide test strips) cholecalciferol (vitamin D3) 50 50 mcg PO DAILY 90 days #90 caps 07/08/24 mcg (2,000 unit) capsule lisinopril 40 mg tablet 40 mg PO DAILY 90 days #90 tabs 09/18/24 fluocinolone acetonide oil 0.01 % 5 drp otic (ear) right BID 7 days 09/21/24 ear drops (DermOtic Oil) #20 mL amlodipine 10 mg tablet 10 mg PO DAILY 90 days #90 tabs 09/30/24 metoprolol succinate 100 mg 100 mg PO DAILY 90 days #90 tabs 09/30/24 tablet,extended release 24 hr lancets (Accu-Chek Softclix #100 ea 10/17/24 Lancets) clonazepam 1 mg tablet 1 mg PO BID 30 days #60 tabs 12/12/24 repaglinide 0.5 mg tablet 0.5 mg PO TID 30 days #90 tabs 01/09/25 Allergies Allergy/AdvReac Type Severity Reaction Status Date / Time amoxicillin [AMOXICILLIN] Allergy Intermediate HIVES Verified 01/12/25 05:32 cephalexin [CEPHALEXIN] Allergy Intermediate HIVES Verified 01/12/25 05:32 doxycycline [DOXYCYCLINE] Allergy Intermediate HIVES Verified 01/12/25 05:32 Sulfa (Sulfonamide Allergy Intermediate hives Verified 01/12/25 05:32 Antibiotics) Review of Systems Review of Systems Positive right-sided abdominal pain Yes all other systems are reviewed and are negative PMFSH Past Medical History Attestation statement: The following information was validated with the patient. Medical History Adrenal nodule Adrenal disorder Anxiety Essential hypertension Surgical History History of excision of mass (03/10/13) History of orchiectomy (04/17/17) History of colonoscopy (2016) History of surgical removal of ganglion cyst (06/27/17) Family History Family History Father Prostate cancer, Onset Age: 46 Mother Hx of CABG Sister DVT (deep venous thrombosis) Social History Social History Housing: Apartment Alcohol intake: current Alcohol intake frequency: a few times a month Alcohol type: hard liquor Patient Tobacco Use Status: Never used Tobacco e-Cigarette/Vaping Use: Never Used Second Hand Smoke Exposure: No Advance Directives: No Advance Directives Information Provided: Yes service: No Current occupational status: employed Current occupation: [employer] dept/ rt hand Current occupational exposures/hazards: No Cognitive needs: No Hearing needs: No Vision needs: Yes Physical Exam ED Vital Signs: Vital Signs - 24 hr 01/12/25 05:30 01/12/25 08:41 Temperature 98.4 F 98.1 F Pulse Rate 84 68 Respiratory Rate 18 14 Blood Pressure 148/86 H 120/79 Pulse Oximetry 98 97 Oxygen Delivery Method Room Air Room Air BMI result Body Mass Index 29.3 Appearance: Alert. Oriented X3. No acute distress. Eyes: Pupils equal, round and reactive to light. ENT: Pharynx normal. Neck: Normal inspection. Neck supple. No lymph nodes noted. No crepitus CVS: Normal heart rate and rhythm. Pulses normal. Normal S1 and S2 Respiratory: No respiratory distress. Breath sounds normal. No Wheezing. No rales Abdomen: Soft and nontender. No rigidity. No distention. good BS x4 Skin: Skin warm and dry. Normal skin color. Normal skin turgor. Extremities: No lower extremity edema. Neurovascular intact to all extremities. No Lacerations. No Rash Neuro: Oriented X 3. No motor deficit. No sensory deficit. Moving all extermities. No slurred speech Medical Decision Making Medical Decision Making [facility] Narrative: Patient is a 59 year old male presents today with having right-sided abdominal pain. A CT scan was ordered. My interpretation of that is CT showed no acute evidence of obstruction abscess perforation there is no evidence of kidney stone. Radiology's interpretation also included patient did not any evidence for appendicitis. There is diverticulosis without diverticulitis. There is evidence for enlarged prostate. Patient to follow-up on an outpatient basis. Patient's urine showed no signs of infection. Electrolytes were normal LFTs are normal well-appearing no distress. Will discharge patient home close follow-up on an outpatient basis. Differential Diagnosis Differential Diagnoses: The differential diagnosis associated with the presentation includes Abdominal pain Admission/Observation Consideration of admission/observation: Escalation of care including admission/observation considered Lab Data [facility] Lab Attestation statement: I reviewed the patient's lab results. 01/12/25 05:38 01/12/25 05:38 Labs: Lab Results 01/12/25 01/12/25 Range/Units 05:38 05:46 WBC 6.2 (4.8-10.8) X10*3/uL RBC 4.62 (4.60-5.80) X10*6/uL Hgb 13.4 L (14.0-18.0) g/dl Hct 39.7 L (42.0-52.0) % MCV 85.9 (80.0-98.0) fL MCH 29.0 (27.0-33.0) pg MCHC 33.8 (31.0-36.0) g/dl RDW 13.7 (11.0-16.0) % Plt Count 214 (160-400) X10*3/uL MPV 9.4 (9.4-12.4) fL Immature Gran % (Auto) 0.3 (0.0-0.4) % Neut % (Auto) 66.9 (45-73) % Lymph % (Auto) 21.2 (20-40) % [place] % (Auto) 9.2 (2-11) % Eos % (Auto) 1.9 (0-4) % Baso % (Auto) 0.5 (0-2) % Lymph # (Auto) 1.3 (1.2-4.9) X10*3/uL [place] # (Auto) 0.6 (0.1-1.2) X10*3/uL Eos # (Auto) 0.1 (0.0-0.4) X10*3/uL Baso # (Auto) 0.0 (0.0-0.2) X10*3/uL Abs Immat Gran (auto) 0.02 (0.00-0.03) X10*3/uL Absolute Neuts (auto) 4.1 (2.0-8.3) x10*3/uL Absolute Nucleated RBC 0.000 (0.0-0.012) X10*3/uL Nucleated RBC % (auto) 0.0 (0.0-0.2) /100WBC Sodium 140 (135-145) mmol/L Potassium 4.0 (3.3-5.1) mmol/L Chloride 106 (96-108) mmol/L Carbon Dioxide 22 (22-29) mmol/L Anion Gap 16 (12-20) BUN 11 (9-16) mg/dL Creatinine 1.01 (0.5-1.4) mg/dL Estim Creat Clear Calc 99.5 Estimated GFR > 60 Random Glucose 129 H (60-115) mg/dL Calcium 9.9 (8.4-10.2) mg/dL Total Bilirubin 0.3 (0.0-1.0) mg/dL AST 19 (5-37) U/L ALT 17 (0-40) U/L Alkaline Phosphatase 66 (39-117) U/L Total Protein 7.2 (6.5-8.0) g/dL Albumin 4.3 (3.5-5.0) g/dL Urine Color Yellow Urine Appearance Clear Urine pH 6.0 (5.0-9.0) Ur Specific [place] 1.015 (1.005-1.025) Urine Protein Negative (Neg-Trace) mg/dL Urine Glucose (UA) Negative (Negative) mg/dL Urine Ketones Negative (Negative) mg/dL Urine Blood Negative (Negative) Urine Nitrite Negative (Negative) Ur Leukocyte Esterase Negative (Negative) Urine RBC 0-2 (0-2) /HPF Urine WBC 0-5 (0-5) /HPF Ur Squamous Epith Cells 0-2 (0-2) /HPF Urine Bacteria None Seen (None Seen) Hyaline Casts 0-2 (0-2) /LPF Independent Interpretation I performed an independent interpretation of an: CT Scan ( grossly negative) Radiology Impression Discussion of test interpretation with radiology: I have reviewed the radiologist's reading. Radiologist Impression: enlarged prostate noted Medications Administered Discontinued Medications Generic Name Dose Route Start Last Admin Trade Name Freq PRN Reason Stop Dose Admin Iohexol 100 ml 01/12/25 08:13 01/12/25 08:14 Iohexol 350 Mg/Ml 100 Ml Infus..Btl IV 01/12/25 08:14 85 ml ONCE ONE Administration Ketorolac Tromethamine 15 mg 01/12/25 07:07 01/12/25 07:36 Ketorolac Tromethamine 15 Mg/Ml Vial IVPUSH 01/12/25 07:08 15 mg ONCE ONE Administration Discharge Plan Discharge Clinical Impression: Abdominal pain Patient Disposition: Home, Self-Care Instructions: Abdominal Pain (ED) Additional Instructions: enlarged prostate was noted on your CT scan. Close follow-up advised. Prescriptions: No Action (DME) blood pressure test kit-large [CareTouch BP Monitor] Kit See Rx Instructions .Route Qty: 1 0RF Rx Instructions: As directed (DME) lancets 28 gauge misc See Rx Instructions topical DAILY Qty: 100 3RF Rx Instructions: Use 1 lancet once a day (DME) FreeStyle Test Strip See Rx Instructions .ROUTE .MEDSUPPLY Qty: 50 11RF Rx Instructions: Use 1 test strip once a day (DME) blood-glucose meter [Accu-Chek Guide Glucose Meter] Misc See Rx Instructions .Route Qty: 1 0RF Rx Instructions: check glucose once daily rosuvastatin 10 mg tablet 10 mg PO DAILY Qty: 90 3RF fenofibrate 160 mg tablet 160 mg PO DAILY 90 Days Qty: 90 1RF (DME) Accu-Chek Guide test strips Strip See Rx Instructions .Route Qty: 100 11RF Rx Instructions: check blood glucose once daily cholecalciferol (vitamin D3) 50 mcg (2,000 unit) capsule 50 mcg PO DAILY 90 Days Qty: 90 1RF lisinopril 40 mg tablet 40 mg PO DAILY 90 Days Qty: 90 4RF metoprolol succinate 100 mg tablet extended release 24 hr 100 mg PO DAILY 90 Days Qty: 90 2RF amlodipine 10 mg tablet 10 mg PO DAILY 90 Days Qty: 90 0RF (DME) lancets [Accu-Chek Softclix Lancets] Misc See Rx Instructions .Route Qty: 100 0RF Rx Instructions: check blood glucose once daily clonazepam 1 mg tablet 1 mg PO BID 30 Days Qty: 60 0RF repaglinide 0.5 mg tablet 0.5 mg PO TID 30 Days Qty: 90 1RF Rx Instructions: administer within 30 minutes of a meal or snack spironolactone 25 mg tablet 25 mg PO BID fluocinolone acetonide oil [DermOtic Oil] 0.01 % drops 5 drp otic (ear) right BID 7 Days Qty: 20 0RF Referrals: Mercy Cole MD [Primary Care Provider] - 01/14/25 Print Language: Malaysian
[2025-01-12] MEDS: Ketorolac Tromethamine 15 MG/ML VIAL IVPUSH (07:36)
[2025-01-12] MEDS: iohexoL 350 MG/ML 100 ML INFUS..BTL IV (08:14)
[2025-01-12 08:41] VITALS: BP 120/79; PULSE 68; RESP 14; TEMP 36.7; O2SAT 97
[2025-01-12 09:27] VITALS: BP 134/83; PULSE 75; RESP 16; TEMP 36.1; O2SAT 98
== END 2025-01-12 09:37 | disposition home or self-care (01) ==
PROVIDERS: Emergency Provider Emergency Medicine Emergency Medical Services; PCP Internal Medicine
DX: R10.31 Right lower quadrant pain (principal); N40.0 Benign prostatic hyperplasia without lower urinary tract symptoms; Z79.899 Other long term (current) drug therapy
CPT/HCPCS: 36415; 74177; 80053; 81001; 85025; 96374; 99283; 99284; J1885; Q9967

== ENCOUNTER → 2025-01-12 07:07 | Outpatient (BNV) | payer BC, SELFPAY | PROVIDERS: Emergency Provider Emergency Medicine Emergency Medical Services; PCP Internal Medicine; Visit Provider Radiology Diagnostic Radiology | DX: K57.90 Diverticulosis of intestine, part unspecified, without perforation or abscess without bleeding (principal); N40.0 Benign prostatic hyperplasia without lower urinary tract symptoms; K76.0 Fatty (change of) liver, not elsewhere classified; N28.1 Cyst of kidney, acquired | CPT/HCPCS: 74177 ==

== ENCOUNTER 2025-01-13 06:58 | Outpatient (REF) | payer BC, SELFPAY ==
--- OUTSIDE RECORDS SUMMARY | 2025-01-13 07:01 | XMS_ITS | Continuity of Care Document ---
Author Organization [facility] Address [address] [place] [address] Phone [phone] Care Team Providers Care Co Teacher Name Role Phone Mercy Solis MD Care Team Information Receiv er [phone] Problems Active Problems Provider Date Anxiety DALILA [...] Medications SIG Qnty Indications Ordering Provider Date [id number] Tablets 1 tablet by mouth at 11 pm 1tabs Angie Cummings M.D. 06/14/2024 Psrwkcblai3me Tablets Take 1 Tablet (1 MG) Orally 2 Times A Day For 30 Days Mercy Cole Metoprolol Succinate SP757um Tablets ER 24HR Take 1 Tablet By Mouth Every Day Mercy Cole Vqvdzglmms21eu Tablets Take 1 Tablet By Mouth Every Day Mercy Cole Amlodipine Icppbbkn51mh Tablets Take 1 Tablet By Mouth Every Day Mercy Cole Rosuvastatin Invyjoa65rs Tablets Take 1 Tablet (10 MG) Orally Daily Mercy Cole Accu-Chek GuideStrips Check Blood Glucose Once Daily Clayton Castro [facility] Gqkzuxzgzwh469ml Tablets Take 1 Tablet By Mouth Every Day Clayton CastroMercy Wkjkidkqfenawl44ak Tablets Take 1 Tablet By Mouth Twice A Day Unknown Pioglitazone TZG49et Tablets Take 1 Tablet By Mouth Every Day Clayton Castro [facility] History Medications Labetalol [id number] Tablets Take 1 tablet by mouth twice [...] Referral Status Appt Alejandro Billingsley PA Closed [address] [place] [address] Drive [address] [place] [address] [phone]
[2025-01-13 08:00] LABS: Alanine Aminotransferase 19 U/L (0-40); Albumin Level 4.4 g/dL (3.5-5.0); Alkaline Phosphatase 65 U/L (39-117); Anion Gap 14 (12-20); Aspartate Amino Transferase 16 U/L (5-37); Bilirubin Total 0.5 mg/dL (0.0-1.0); Blood Urea Nitrogen 12 mg/dL (9-16); Calcium 9.6 mg/dL (8.4-10.2); Carbon Dioxide 25 mmol/L (22-29); Chloride 106 mmol/L (96-108); Cholesterol 164 mg/dL (<200); Estimated Glomerular Filt Rate > 60; Glucose Fasting 148 mg/dL (60-99); HDL Cholesterol 35 mg/dL (>40); LDL Cholesterol Calculated 54 mg/dL (<100); Sodium 141 mmol/L (135-145); Total Protein 7.2 g/dL (6.5-8.0); Triglycerides 378 mg/dL (<150)
[2025-01-13 08:20] LABS: Vitamin D 25-OH Total 42.1 ng/mL (>30)
[2025-01-13 08:44] LABS: Creatinine Urine 190.38 mg/dL; Microalbum/Creatinine Ratio Ur 3.6 ug/mg cr (<30)
[2025-01-18 12:19] LABS: Metanephrine, Free 31 pg/mL (<=57); Normetanephrines, Free 91 pg/mL (<=148); Total Metanephrine, Free 122 pg/mL (<=205)
[2025-01-21 13:39] LABS: Aldosterone/Renin Ratio 0.1 Ratio (0.9-28.9); Plasma Renin Activity 34.98 ng/mL/h (0.25-5.82)
== END 2025-01-13 06:59 | disposition home or self-care (01) ==
LOC: HO.LAB 06:58
PROVIDERS: Absent Provider Physician Assistant; PCP Internal Medicine; Visit Provider Internal Medicine
DX: E11.9 Type 2 diabetes mellitus without complications (principal); E55.9 Vitamin D deficiency, unspecified; E78.5 Hyperlipidemia, unspecified; R80.9 Proteinuria, unspecified; D44.12 Neoplasm of uncertain behavior of left adrenal gland; E27.9 Disorder of adrenal gland, unspecified; I10 Essential (primary) hypertension
CPT/HCPCS: 36415; 80053; 80061; 82043; 82088; 82306; 82570; 83835; 84244

== ENCOUNTER 2025-01-14 07:44 | Outpatient (AMB) | payer BC, SELFPAY ==
--- NOTE | 2025-01-14 08:07 | A.OFFPC_ITS ---
Vital Signs 01/14/25 08:09 Height 6 ft 1 in Weight 225 lb BMI 29.7 BP 130/72 Blood Pressure Location Lt brachial Position Sitting Pulse 70 Pulse Source Pulse Oximeter Pulse Oximetry (%) 98 Oxygen Delivery Method Room Air Intake [place] [facility] [place] abd [place] Allergies amoxicillin [AMOXICILLIN] Allergy (Intermediate, Verified 01/14/25 08:09) HIVES cephalexin [CEPHALEXIN] Allergy (Intermediate, Verified 01/14/25 08:09) HIVES doxycycline [DOXYCYCLINE] Allergy (Intermediate, Verified 01/14/25 08:09) HIVES Sulfa (Sulfonamide Antibiotics) Allergy (Intermediate, Verified 01/14/25 08:09) hives Tobacco use date assessed: 01/07/24 Dental Screening Dental Screen Date: 01/14/25 Did you have a dental visit in the last 12 months?: Yes Did you have a dental problem in the last 6 months where you did not have access to dental care?: No Was dental information given to patient?: Patient has dentist HPI HPI Comments History of Present Illness Details 59 y/o male patient who presents today f or HDF. Pmhx significant for diabetes, hypertension, and hypercholesterolemia. He was admitted [place] [facility] [place] Abdomen showed no acute evidence of obstruction abscess perforation there is no evidence of kidney stone. There is Diverticulosis without diverticulitis. There is evidence for enlarged prostate. He was discharged home on the same day, to f/u with PCP. Pt has h/o BPH and was briefly followed by Urologist (Dr. Sahil Mei). Pt denies any Urinary symptoms. [facility] Medical History (Updated 01/14/25 @ 08:35 by Gin Riojas NP) BPH (benign prostatic hyperplasia) Adrenal nodule Adrenal disorder Anxiety Essential hypertension Surgical History History of excision of mass (03/10/13) History of orchiectomy (04/17/17) History of colonoscopy (2016) History of surgical removal of ganglion cyst (06/27/17) Family History Father Prostate cancer, Onset Age: 46 Mother Hx of CABG Sister DVT (deep venous thrombosis) Social History Housing: Apartment Alcohol intake: current Alcohol intake frequency: a few times a month Alcohol type: hard liquor Patient Tobacco Use Status: Never used Tobacco Tobacco use type: Cigarette e-Cigarette/Vaping Use: Never Used Second Hand Smoke Exposure: No service: No Current occupational status: employed Current occupation: [employer] dept/ rt hand Current occupational exposures/hazards: No Cognitive needs: No Hearing needs: No Vision needs: Yes Questionnaire Thrive Questionnaire Date Thrive assessed: 01/14/25 I am a: Patient What is your living situation today?: I have a steady place to live Within the past 12 months, did the food you bought not last and you didn't have the money to get more?: Never true Within the past 12 months, did you worry whether your food would run out before you got money to buy more?: Never true Do you have trouble paying for medicines?: No Do you have trouble getting transportation to medical appointments?: No Do you have trouble paying your heating and electricity bill?: No Do you have trouble taking care of your child, family member or friend?: No Do you have trouble with day-to-day activities such as bathing, preparing meals, shopping, managing finances, etc.?: No Are you currently unemployed and looking for a job?: No Are you interested in more education?: No Currently or been in a relationship where the following occur: No concerns reported THRIVE Score: 0 PAYAL-7 AMB Questionnaire PAYAL-7 Date PAYAL - 7 assessed: 12/30/23 Source: Developed by Drs. Jordan Beckford, Digna Matt, Jacob Scales and colleagues, with an educational delfino from [employer]. Review of Systems Const All systems reviewed & are unremarkable except as noted in HPI and below Physical exam (Primary Care) Vital Signs: Last Vital Signs Pulse 70 01/14/25 08:09 BP 130/72 01/14/25 08:09 Pulse Ox 98 01/14/25 08:09 Oxygen Delivery Method Room Air 01/14/25 08:09 BMI result Body Mass Index 29.7 Tobacco/Smoking Status: Tobacco use Status Tobacco use date assessed 01/07/24 01/14/25 08:13 Patient Tobacco Use Status Never used Tobacco 01/14/25 08:08 Tobacco use type Cigarette 01/14/25 08:13 e-Cigarette/Vaping Use Never Used 01/14/25 08:08 Thrive Assessment: Date of Thrive Assessment Date Thrive assessed 01/14/25 01/14/25 08:13 Currently or been in a relationship where the following occur: No concerns reported Const General: cooperative and no acute distress Nutritional Appearance: obese Orientation/consciousness: patient oriented x3 Resp Effort & Inspection: normal respiratory effort and able to speak in complete sentences Auscultation: clear to auscultation bilaterally Cardio Heart sounds: S1 normal heart sound present and S2 normal heart sound present GI Inspection: Yes obesity Palpation (GI): Soft to palpation, not firm, nontender, no guarding, not rigid and No hepatosplenomegaly present Neuro General: patient oriented x3 Coding Level of Care Code Est Pt Level 4 (44094) Diagnoses BPH (benign prostatic hyperplasia) N40.0 Lower urinary tract symptom presence: symptoms absent Time Spent (min) 20 Assessment & Plan Assessment & Plan (1) BPH (benign prostatic hyperplasia): Code(s): N40.0 - Benign prostatic hyperplasia without lower urinary tract symptoms Category: Medical Qualifiers: Lower urinary tract symptom presence: symptoms absent Plan: Managed by Urologist (Dr. Mei).
[2025-01-14 08:09] VITALS: BP 130/72; PULSE 70; O2SAT 98; BMI 29.7
== END 2025-01-14 08:41 | disposition home or self-care (01) ==
LOC: HO.HMCH 07:44
PROVIDERS: PCP Internal Medicine; Visit Provider Nurse Practitioner Family
DX: N40.0 Benign prostatic hyperplasia without lower urinary tract symptoms (principal)

== ENCOUNTER 2025-02-01 07:39 | Outpatient (AMB) | payer BC, SELFPAY ==
[2025-02-01 07:56] VITALS: BP 120/80; BMI 29.7
--- NOTE | 2025-02-01 07:56 | MHC.PC.OV ---
Vital Signs 02/01/25 07:56 Height 6 ft 1 in Weight 225 lb BMI 29.7 BP 120/80 Blood Pressure Location Lt brachial Position Sitting Intake Visit Reasons: dm Intake Note: Patient here for a follow up DM Grades 1 Thru 6 Visiting Teacher Required: Yes Grades 1 Thru 6 Visiting Teacher Language: Efficiency Analyst Name: Mercy Castro MD Information Interpreted: non-clinical & clinical Accompanied by: Self / Same As Patient Allergies amoxicillin [AMOXICILLIN] Allergy (Intermediate, Verified 02/01/25 08:19) HIVES cephalexin [CEPHALEXIN] Allergy (Intermediate, Verified 02/01/25 08:19) HIVES doxycycline [DOXYCYCLINE] Allergy (Intermediate, Verified 02/01/25 08:19) HIVES Sulfa (Sulfonamide Antibiotics) Allergy (Intermediate, Verified 02/01/25 08:19) hives Medication List - Last Reconciled 02/01/25 by Mercy Castro MD amlodipine 10 mg PO DAILY 90 days blood pressure test kit-large (CareTouch Blood Pressure Monitor kit) As directed blood sugar diagnostic (FreeStyle Test strips) Use 1 test strip once a day blood sugar diagnostic (Accu-Chek Guide test strips) check blood glucose once daily blood-glucose meter (Accu-Chek Guide Glucose Meter) check glucose once daily cholecalciferol (vitamin D3) 50 mcg PO DAILY 90 days clonazepam 1 mg PO BID 30 days fenofibrate 160 mg PO DAILY 90 days fluocinolone acetonide oil 0.01% (DermOtic Oil) 5 drps otic (ear) right BID 7 days lancets Use 1 lancet once a day lancets (Accu-Chek Softclix Lancets) check blood glucose once daily lisinopril 40 mg PO DAILY 90 days metoprolol succinate ER 100 mg PO DAILY 90 days repaglinide 0.5 mg PO TID 30 days rosuvastatin 10 mg PO DAILY spironolactone 25 mg PO BID Tobacco use date assessed: 02/01/25 Dental Screening Dental Screen Date: 01/14/25 HPI HPI Comments History of Present Illness Details The patient is a 59-year-old male presenting for follow-up on multiple chronic conditions, notably diabetes, hypertension, dyslipidemia, and an adrenal nodule. His type 2 diabetes mellitus has an A1c level of 5.8%, indicating effective management. His LDL cholesterol is well-controlled under the target of 70 mg/dL. His blood pressure remains stable at 120/80 mmHg. A left adrenal gland nodule was found during previous imaging, with its size reducing from an initial measurement of 2.3 cm to 1.8 cm. The nodule's lipid-poor characteristic and elevated Hounsfield units warranted further endocrine evaluation, including a dexamethasone suppression test with elevated results and variances in renin levels. The patient also presents with benign prostatic hyperplasia, with a prostate size of [address] a [address] scan. He manages anxiety with clonazepam and adheres to a comprehensive medication regimen to maintain cardiovascular and metabolic health. [facility] Medical History (Updated 02/01/25 @ 09:35 by Mercy Castro MD) Adrenal nodule BPH (benign prostatic hyperplasia) Adrenal disorder Anxiety Essential hypertension Surgical History History of excision of mass (03/10/13) History of orchiectomy (04/17/17) History of colonoscopy (2016) History of surgical removal of ganglion cyst (06/27/17) Family History Father Prostate cancer, Onset Age: 46 Mother Hx of CABG Sister DVT (deep venous thrombosis) Social History Housing: Apartment Alcohol intake: current Alcohol intake frequency: a few times a month Alcohol type: hard liquor Patient Tobacco Use Status: Never used Tobacco e-Cigarette/Vaping Use: Never Used Second Hand Smoke Exposure: No service: No Current occupational status: employed Current occupation: [employer] dept/ rt hand Current occupational exposures/hazards: No Cognitive needs: No Hearing needs: No Vision needs: Yes Questionnaire PHQ-9 Over the last 2 weeks, how often have you been bothered by any of the following problems? 1. Little interest or pleasure in doing things: not at all 2. Feeling down, depressed, or hopeless: not at all 3. Trouble falling or staying asleep, or sleeping too much: not at all 4. Feeling tired or having little energy: not at all 5. Poor appetite or overeating: not at all 6. Feeling bad about yourself - or that you are a failure or have let yourself or your family down: not at all 7. Trouble concentrating on things, such as reading the newspaper or watching television: not at all 8. Moving or speaking so slowly that other people could have noticed. Or the opposite - being so fidgety or restless that you have been moving around a lot more than usual: not at all 9. Thoughts that you would be better off or of hurting yourself in some way: not at all Total score: 0 Depression Screening Interpretation: Negative Depression Screening Done: Yes 77322 - PHQ-9 Billing: Yes Source: Developed by Drs. Jordan Beckford, Digna Matt, Jacob Scales and colleagues, with an educational delfino from [employer]. Thrive Questionnaire Date Thrive assessed: 02/01/25 I am a: Patient What is your living situation today?: I have a steady place to live Within the past 12 months, did the food you bought not last and you didn't have the money to get more?: Never true Within the past 12 months, did you worry whether your food would run out before you got money to buy more?: Never true Do you have trouble paying for medicines?: No Do you have trouble getting transportation to medical appointments?: No Do you have trouble paying your heating and electricity bill?: No Do you have trouble taking care of your child, family member or friend?: No Do you have trouble with day-to-day activities such as bathing, preparing meals, shopping, managing finances, etc.?: No Are you currently unemployed and looking for a job?: No Are you interested in more education?: No Please select the resources that you would like help with: None Currently or been in a relationship where the following occur: No concerns reported THRIVE Score: 0 AUDIT C Alcohol Use Questionnaire (AUDIT-C) 1. How often do you have a drink containing alcohol?: Monthly or less 2. How many drinks containing alcohol do you have on a typical day when you are drinking?: 1 or 2 3. How often do you have six or more drinks on one occasion?: Never Total Score: 1 Score Reviewed/Action Taken: No PAYAL-7 AMB Questionnaire PAYAL-7 Date PAYAL - 7 assessed: 02/01/25 Feeling nervous, anxious, or on edge: 1 = Several days Not being able to stop or control worryin = Not at all Worrying too much about different things: 0 = Not at all Trouble relaxin = Not at all Being so restless that it is hard to sit still: 0 = Not at all Becoming easily annoyed or irritable: 0 = Not at all Feeling afraid as if something awful might happen: 0 = Not at all Total PAYAL-7 score (0-4 normal; 5-9 mild; 10-14 moderate; 15-21 severe): 1 Source: Developed by Drs. Jordan Beckford, Digna Matt, Jacob Scales and colleagues, with an educational delfino from [employer]. PAYAL-7 Assessment Billing PAYAL-7 Assessment Tool: PAYAL-7 Assessment 90676 Review of Systems Const All systems reviewed & are unremarkable except as noted in HPI and below Card Denies chest pain at rest, Denies chest pain with activity, Denies edema, Denies irregular heart rhythm, Denies claudication, Denies dyspnea, Denies dyspnea on exertion, Denies orthopnea, Denies paroxysmal nocturnal dyspnea and Denies slow heart rate Resp Denies cough, Denies dyspnea and Denies dyspnea on exertion GI Denies abdominal pain, Denies change in bowel habits, Denies excessive flatus, Denies nausea and Denies vomiting Physical exam (Primary Care) Vital Signs: Last Vital Signs BP 120/80 02/01/25 07:56 BMI result Body Mass Index 29.7 Tobacco/Smoking Status: Tobacco use Status Tobacco use date assessed 02/01/25 02/01/25 07:59 Patient Tobacco Use Status Never used Tobacco 02/01/25 07:59 Tobacco use type 02/01/25 07:59 e-Cigarette/Vaping Use Never Used 02/01/25 07:59 PHQ-9: PHQ-9 Score PHQ-9: Total score 0 02/01/25 08:00 Depression Screening Interpretation: Negative Thrive Assessment: Date of Thrive Assessment Date Thrive assessed 02/01/25 02/01/25 07:59 Currently or been in a relationship where the following occur: No concerns reported Resp Effort & Inspection: normal respiratory effort Auscultation: clear to auscultation bilaterally Cardio Jugular venous distension: no JVD Rate: regular rate Rhythm: regular rhythm Heart sounds: S1 normal heart sound present and S2 normal heart sound present Extrem General: Yes full ROM Results AMB Hemoglobin A1c AMB Hemoglobin A1c 5.7 % Last Edit by SHIREEN Greene on 02/01/25 08:01 Results Reviewed Results Reviewed: Laboratory Last Values Hgb A1c (Clinic) 5.7 % (4.0-6.0) 02/01/25 07:50 Coding Level of Care Code Est Pt Level 4 (37598) Complex EM visit Add On G2211 Diagnoses Type 2 diabetes mellitus without complication, without long-term current use of insulin E11.9 Diabetes mellitus type: type 2 Diabetes mellitus fpc insulin use: without dye house helper use Diabetes mellitus complication status: without complication Adrenal nodule E27.8 Skin lesion L98.9 Benign prostatic hyperplasia without lower urinary tract symptoms N40.0 Lower urinary tract symptom presence: symptoms absent Essential hypertension I10 Anxiety F41.9 Mixed hyperlipidemia E78.2 Additional Codes PHQ-9 - 98538 - PHQ-9 Billing: Yes ([id number]) PAYAL-7 Assessment Billing - PAYAL-7 Assessment Tool: PAYAL-7 Assessment 69913 ([id number]) Time Spent (min) 24 Assessment & Plan Assessment & Plan (1) Diabetes mellitus: Code(s): E11.9 - Type 2 diabetes mellitus without complications Category: Medical Qualifiers: Diabetes mellitus type: type 2 Diabetes mellitus fpc insulin use: without dye house helper use Diabetes mellitus complication status: without complication Qualified Code(s): E11.9 - Type 2 diabetes mellitus without complications (2) Adrenal nodule: Comment: [facility] Code(s): E27.8 - Other specified disorders of adrenal gland Category: Medical (3) Skin lesion: Code(s): L98.9 - Disorder of the skin and subcutaneous tissue, unspecified Category: Medical (4) BPH (benign prostatic hyperplasia): Code(s): N40.0 - Benign prostatic hyperplasia without lower urinary tract symptoms Category: Medical Qualifiers: Lower urinary tract symptom presence: symptoms absent Qualified Code(s): N40.0 - Benign prostatic hyperplasia without lower urinary tract symptoms (5) Essential hypertension: Code(s): I10 - Essential (primary) hypertension Category: Medical (6) Anxiety: Code(s): F41.9 - Anxiety disorder, unspecified Category: Medical (7) Mixed hyperlipidemia: Code(s): E78.2 - Mixed hyperlipidemia Category: Medical Plan The patient exhibits well-managed type 2 diabetes mellitus, as indicated by an optimal Hemoglobin A1c. LDL cholesterol levels remain controlled, and hypertension is effectively managed with a consistent medication regimen. Continuous monitoring of the decreasing adrenal nodule size is planned, with recommendations for reassessment in six months. Regarding benign prostatic hyperplasia, preparations are in place for further evaluation by urology. The treatment plan includes retention of clonazepam for anxiety. Detailed attention to his specific medication allergies, especially concerning antibiotics, remains essential. Regular follow-up with an tire care manager will be necessary to monitor hormonal levels. Adherence to medications must remain stringent. Patient was informed and verbally consented to the use of an ambient scribe for clinic note documentation during this visit. I discussed with the patient the favorable outcomes of his current management plan regarding glucose control, lipid management, and hypertension therapy. The recent imaging confirms that the adrenal nodule has reduced, thus indicating effective ongoing evaluation for endocrine functioning. Recommendations for managing prostate enlargement, including an upcoming specialist review, were also provided. The patient was advised about the importance of medication adherence, especially where symptomatic relief and preventing adverse events are concerned. I reminded him of discussing any new changes or concerns during his subsequent visits. Orders: Orders AMB Hemoglobin A1c Today E11.9 - Type 2 diabetes mellitus without complications Referrals Dermatology Referral L98.9 - Disorder of the skin and subcutaneous tissue, unspecified Patient Instructions: - Continue current medication regimen for diabetes, hypertension, and lipid management. - Follow up with urology on February 17 as scheduled. - Schedule a CT scan in 6 months for adrenal nodule monitoring. - Maintain scheduled appointment with tire care manager. - Report any new or worsening symptoms, especially regarding adrenal function or prostate health. - Advise cautious use of antibiotics due to noted allergies. - Continue lifestyle modifications and monitoring as previously advised.
== END 2025-02-01 08:38 | disposition home or self-care (01) ==
LOC: HO.HMCH 07:40
PROVIDERS: PCP Internal Medicine; Visit Provider Internal Medicine
DX: E11.9 Type 2 diabetes mellitus without complications (principal); E27.8 Other specified disorders of adrenal gland; L98.9 Disorder of the skin and subcutaneous tissue, unspecified; N40.0 Benign prostatic hyperplasia without lower urinary tract symptoms; I10 Essential (primary) hypertension; F41.9 Anxiety disorder, unspecified; E78.2 Mixed hyperlipidemia

== ENCOUNTER → 2025-02-01 07:39 | Outpatient (BNVA) | payer BC, SELFPAY | PROVIDERS: PCP Internal Medicine; Visit Provider Internal Medicine | DX: E11.9 Type 2 diabetes mellitus without complications (principal); E27.8 Other specified disorders of adrenal gland; L98.9 Disorder of the skin and subcutaneous tissue, unspecified; N40.0 Benign prostatic hyperplasia without lower urinary tract symptoms; I10 Essential (primary) hypertension; F41.9 Anxiety disorder, unspecified; E78.2 Mixed hyperlipidemia | CPT/HCPCS: 83036; 96127 ==

== ENCOUNTER 2025-02-17 08:25 | Outpatient (AMB) | payer BC, SELFPAY ==
--- NOTE | 2025-02-17 08:43 | MHC.OFFVIS ---
Intake Visit Reasons: ED follow up/enlarged prostate Intake Note: Patient is present for ED F/U ENLARGED PROSTATE Urology Medication:NONE Antibiotic Allergy:AMOXICILLIN,CEPHALEXIN,DOXYCYCLINE,SULFA Blood Thinner:NONE Healthcare Translator Required: No Allergies amoxicillin [AMOXICILLIN] Allergy (Intermediate, Verified 02/17/25 08:45) HIVES cephalexin [CEPHALEXIN] Allergy (Intermediate, Verified 02/17/25 08:45) HIVES doxycycline [DOXYCYCLINE] Allergy (Intermediate, Verified 02/17/25 08:45) HIVES Sulfa (Sulfonamide Antibiotics) Allergy (Intermediate, Verified 02/17/25 08:45) hives HPI Comments Details: Chauncey is a pleasant male. He is a patient of Dr. Castro. He is seen for the following urologic issue - family history of prostate cancer - prior to testicular torsion with orchiopexy Recent visit to emergency department CT scan showed markedly enlarged prostate Reassurance provided PSA has remained low Discussed progression of BPH At this point in time has minimal symptoms Encourage follow-up with PCP and continue to have yearly PSA High-risk family Patient with family history of prostate cancer - father and uncles have had prostate cancer age between 55 and 65 - discussed question of using finasteride for suppression today - continue to follow PSA - PSA 02/21 1.58, 02/22 2.6, 02/23 1.95, 02/24 1.8, 09/26 2.1 [facility] Medical History (Updated 02/01/25 @ 09:35 by Mercy Castro MD) Adrenal nodule BPH (benign prostatic hyperplasia) Adrenal disorder Anxiety Essential hypertension Surgical History History of excision of mass (03/10/13) History of orchiectomy (04/17/17) History of colonoscopy (2016) History of surgical removal of ganglion cyst (06/27/17) Family History Father Prostate cancer, Onset Age: 46 Mother Hx of CABG Sister DVT (deep venous thrombosis) Social History Housing: Apartment Alcohol intake: current Alcohol intake frequency: a few times a month Alcohol type: hard liquor Patient Tobacco Use Status: Never used Tobacco e-Cigarette/Vaping Use: Never Used Second Hand Smoke Exposure: No service: No Current occupational status: employed Current occupation: [employer] dept/ rt hand Current occupational exposures/hazards: No Cognitive needs: No Hearing needs: No Vision needs: Yes Review of Systems Const Denies chills and Denies fever(s) Card Reports no additional complaints and Denies syncope Resp Denies cough GI Denies abdominal pain and Denies heartburn Reports as per HPI and Denies change in libido Neuro Denies syncope Psych Denies change in libido Endo Denies change in libido Physical Exam Const General: cooperative, healthy appearing, comfortable and no acute distress Orientation/consciousness: patient oriented x3 HEENT Face and sinus: Yes normal facial exam Mouth: moist mucous membranes Neck Neck: Yes normal visual inspection, Yes full ROM and Yes trachea midline Chest Chest palpation & inspection: normal inspection of the chest Resp Effort & Inspection: normal respiratory effort, able to speak in complete sentences and no respiratory distress GI Inspection: Yes normal to inspection Back/Spine/Pelvis Cervical Spine: normal cervical lordosis Thoracic/Lumbar Spine: thoracic and lumbar spine normal to inspection Skin General skin exam: no rashes or lesions noted Neuro General: patient oriented x3, gait normal, tone normal and moves all extremities Extrem General: Yes normal to inspection and Yes capillary refill normal Assessment & Plan Assessment & Plan (1) Elevated PSA: Code(s): R97.20 - Elevated prostate specific antigen [PSA] Category: Medical (2) BPH (benign prostatic hyperplasia): Code(s): N40.0 - Benign prostatic hyperplasia without lower urinary tract symptoms Category: Medical Qualifiers: Lower urinary tract symptom presence: symptoms absent Qualified Code(s): N40.0 - Benign prostatic hyperplasia without lower urinary tract symptoms Plan P.r.n. follow-up Patient Instructions: This note is constructed using voice recognition software. While every effort has been made to ensure accuracy miller rod mill errors may have been included. Imaging studies, laboratory and physical exam results were discussed and reviewed in detail. No major barriers to patient understanding were identified. An opportunity to ask questions regarding the treatment plan was provided. All questions were answered. The patient expressed understanding and agreement with the above treatment plan. The patient is aware they should contact our office by phone for worsening of their current condition or the appearance of new urologic symptoms. Compliance is encouraged with any medications and followup testing that is ordered. It is a privilege to participate in the urologic care of your patient. If you have any questions or concerns regarding treatment for the above conditions, or other urologic issues, please do not hesitate to contact me. The office telephone contact is [phone]. Sincerely, Dr Sahil Mei MD, [facility] - Urology Compassionate Specialist Care for the Genitourinary System Coding Level of Care Code Est Pt Level 3 (18435) Diagnoses Elevated PSA R97.20 Benign prostatic hyperplasia without lower urinary tract symptoms N40.0 Lower urinary tract symptom presence: symptoms absent
--- OUTSIDE RECORDS SUMMARY | 2025-02-17 08:47 | XMS_ITS | Continuity of Care Document ---
Author Organization [facility] Address [address] [place] [address] Phone [phone] Care Team Providers Care Public Address Announcer Name Role Phone Mercy Solis MD Care Team Information Receiv er [phone] Problems Active Problems Provider Date Anxiety DALILA [...] Medications SIG Qnty Indications Ordering Provider Date Kfrlpvbgtu8ut Tablets Take 1 Tablet (1 MG) Orally 2 Times A Day For 30 Days Mercy Cole Metoprolol Succinate JD629co Tablets ER 24HR Take 1 Tablet By Mouth Every Day Mercy Cole Amlodipine Itslxtvw24mx Tablets Take 1 Tablet By Mouth Every Day Mercy Cole Rosuvastatin Senkqlk47bt Tablets Take 1 Tablet (10 MG) Orally Daily Mercy Cole Accu-Chek GuideStrips Check Blood Glucose Once Daily Mercy Cole Hsljdpzepjc859pp Tablets Take 1 Tablet By Mouth Every Day Mercy Cole Uujxblropfafih04nh Tablets Take 1 Tablet By Mouth Twice A Day Unknown Repaglinide0.5mg Tablets Mercy Cole History Medications Labetalol CRP804pt Tablets Take 1 tablet by mouth twice a day 20tabs Angie boyle M.D. 07/07/2024 - 07/07/2024 Xbfqotvtwgnpa8zz Tablets 1 tablet by mouth at 11 pm 1tabs Angie boyle M.D. 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 Assessments Date Code Description Provider 06/14/2024 D44.12 Neoplasm of unce rtain behavior of left adrenal gland DALILA Pak Plan of Treatment Future Appointment(s):* 08/09/2025 8:45 am - DALILA Pak at Main Office 06/14/2024 - DALILA Pak* 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
== END 2025-02-17 09:13 | disposition home or self-care (01) ==
LOC: HO.HUSH 08:26
PROVIDERS: PCP Internal Medicine; Visit Provider Urology
DX: R97.20 Elevated prostate specific antigen [PSA] (principal); N40.0 Benign prostatic hyperplasia without lower urinary tract symptoms
CPT/HCPCS: 99213

== ENCOUNTER 2025-06-10 06:04 | Outpatient (REF) | payer BC, SELFPAY ==
--- OUTSIDE RECORDS SUMMARY | 2025-06-10 06:08 | XMS_ITS | Patient Health Record ---
Author Organization [facility] Address [address] [place] [address] Care Team Providers Care Software Quality Assurance Specialist Name Role Phone Mercy Cole Primary Care Provider Shabbir Mitchell Jr Unavailable [phone] Allergies Allergen (clinical drug ingredient) Drug/Non Drug Allergy documented on EMR Reaction Allergy Type Onset Date Status doxycycline Doxycycline Unknown Drug Allergy Act nabil Sulfamethoxazole Unknown Drug Allergy Active cephalexin Cephalexin Unknown Drug Allergy Activ e amoxicillin Amoxicillin Unknown Drug Allergy Act nabil Reason For Referral No Information Medications Medication SIG (Take, Route, Frequency, Duration) Notes Start Date End Date Status Colyte with Flavor Packs 240 GM As directed Orally Over the specified time. for 1 day(s) 02/12/2017 Active Lisinopril 40 MG 1 tablet Orally Once a day Active Metoprolol Succinate ER 100 MG 1 tablet Orally twice a day Active clonazePAM 1 MG 1 tablet Orally Twic e a day Active Rosuvastatin Calcium 10 MG 1 tablet Oral ly Once a day Active Problems Problem Type SNOMED Code ICD Code Onset Dates Problem Status W/U Status Risk Notes Problem [id number] Colon cancer screening (Z12.11) Active confirmed Problem [id number] Encounter for other preprocedural examination (Z01.818) Active confirmed Plan Of Treatment Future Test Test Name Order Date COLONOSCOPY 02/12/2017 Insurance Providers Payer Name Payer Address Payer Phone Subscriber Number Group Number Insured Name Patient Relationship to Insured Coverage Start Date Coverage End Date [facility] [address] [place] [address] [phone] [id number] MEJÍA YARITZA Self - patient is the insured Medical (General) History Medical History History ICD Code hypertension elevated cholesterol anxiety
--- OUTSIDE RECORDS SUMMARY | 2025-06-10 06:08 | XMS_ITS | Continuity of Care Document ---
Author Organization [facility] Address [address] [facility] [address] [place] [address] Phone [phone] Care Team Providers Care Airplane Pilot Name Role Phone Mercy Solis MD Care Team Information Receiv er [phone] Problems Active Problems Provider Date Anxiety DALILA Pak Onset: 2023 Essential hypertension DALILA Pak Onset: 11/26/2023 Social History Type Date Description Comments Sex Male Sex Unknown Tobacco Use Start: Unknown Never Smoked Cigarettes ETOH Use Occasionally consumes alcoho l Allergies and adverse reactions Active Allergies Criticality Reaction Severity Comments Date Cephalexin Unable to assess criticality 11/26/2023 Doxycycline Unable to assess criticality 11/26/2023 Amoxicillin Unable to assess criticality 11/26/2023 Sulfamethoxazole Unable to assess criticality 11/26/2023 Medications Active Medications SIG Qnty Indications Ordering Provider Date Tctoriywtp2xh Tablets Take 1 Tablet (1 MG) Orally 2 Times A Day For 30 Days Mercy Cole Metoprolol Succinate [id number] Tablets ER 24HR Take 1 Tablet By Mouth Every Day Mercy Cole Amlodipine Bbysjobt23nf Tablets Take 1 Tablet By Mouth Every Day Mercy Cole Rosuvastatin Kqpxqbl65lu Tablets Take 1 Tablet (10 MG) Orally Daily Mercy Cole Accu-Chek GuideStrips Check Blood Glucose Once Daily Mercy Cole Kmngvvjvoiq137pq Tablets Take 1 Tablet By Mouth Every Day Mercy Cole Jhdhllkybfjxux85rc Tablets Take 1 Tablet By Mouth Twice A Day Unknown Repaglinide0.5mg Tablets Mercy Cole History Medications Labetalol QZX801ap Tablets Take 1 tablet by mouth twice a day 20tabs Angie boyle M.D. 07/07/2024 - 07/07/2024 Wjtqxxphtwand9dj Tablets 1 tablet by mouth at 11 pm 1tabs Angie boyle M.D. 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 Assessments Date Code Description Provider 02/07/2025 D44.12 Neoplasm of unce rtain behavior of left adrenal gland DALILA Pak Plan of Treatment Future Appointment(s):* 08/09/2025 8:45 am - Mayco Serrano NP at Main Office 06/14/2024 - DALILA Pak* 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
[2025-06-10 08:18] LABS: PSA,Total (Free>4and<10) 2.29 ng/mL (0.00-4.00)
[2025-06-10 08:30] LABS: Alanine Aminotransferase 17 U/L (0-40); Albumin Level 4.5 g/dL (3.5-5.0); Alkaline Phosphatase 60 U/L (39-117); Anion Gap 15 (12-20); Aspartate Amino Transferase 17 U/L (5-37); Blood Urea Nitrogen 14 mg/dL (9-16); Calcium 9.2 mg/dL (8.4-10.2); Carbon Dioxide 24 mmol/L (22-29); Chloride 106 mmol/L (96-108); Cholesterol 123 mg/dL (<200); Estimated Glomerular Filt Rate > 60; HDL Cholesterol 44 mg/dL (>40); Potassium 3.9 mmol/L (3.3-5.1); Sodium 141 mmol/L (135-145); Total Protein 6.8 g/dL (6.5-8.0); Triglycerides 133 mg/dL (<150)
[2025-06-10 08:45] LABS: Microalbum/Creatinine Ratio Ur 5.7 ug/mg cr (<30)
== END 2025-06-10 06:05 | disposition home or self-care (01) ==
LOC: HO.LAB 06:04
PROVIDERS: PCP Internal Medicine; Visit Provider Internal Medicine
DX: Z12.5 Encounter for screening for malignant neoplasm of prostate (principal); E11.9 Type 2 diabetes mellitus without complications; E78.5 Hyperlipidemia, unspecified; E55.9 Vitamin D deficiency, unspecified; R80.9 Proteinuria, unspecified; R35.1 Nocturia
CPT/HCPCS: 36415; 80053; 80061; 82043; 82306; 82570; 84153

== ENCOUNTER 2025-06-16 07:39 | Outpatient (AMB) | payer BC, SELFPAY ==
--- NOTE | 2025-06-16 07:42 | MHC.PC.OV ---
Vital Signs 06/16/25 07:43 Height 6 ft 1 in Weight 220 lb BMI 29.0 BP 124/72 Blood Pressure Location Lt brachial Position Sitting Pulse 87 Pulse Source Pulse Oximeter Pulse Oximetry (%) 97 Oxygen Delivery Method Room Air Intake Visit Reasons: DM Drying Supervisor Required: No Accompanied by: Self / Same As Patient Allergies amoxicillin (AMOXICILLIN) Allergy (Intermediate, Verified 06/16/25 07:59) HIVES cephalexin (CEPHALEXIN) Allergy (Intermediate, Verified 06/16/25 07:59) HIVES doxycycline (DOXYCYCLINE) Allergy (Intermediate, Verified 06/16/25 07:59) HIVES Sulfa (Sulfonamide Antibiotics) Allergy (Intermediate, Verified 06/16/25 07:59) hives Medication List - Last Reconciled 06/16/25 by Mercy Castro MD amlodipine 10 mg PO DAILY 90 days blood pressure test kit-large (T3 Search Blood Pressure Monitor kit) As directed blood sugar diagnostic (FreeStyle Test strips) Use 1 test strip once a day blood sugar diagnostic (Accu-Chek Guide test strips) check blood glucose once daily blood-glucose meter (Accu-Chek Guide Glucose Meter) check glucose once daily cholecalciferol (vitamin D3) 50 mcg PO DAILY 90 days clonazepam 1 mg PO BID 30 days fenofibrate 160 mg PO DAILY 90 days fluocinolone acetonide oil 0.01% (DermOtic Oil) 5 drps otic (ear) right BID 7 days lancets Use 1 lancet once a day lancets (Accu-Chek Softclix Lancets) check blood glucose once daily lisinopril 40 mg PO DAILY 90 days metoprolol succinate ER 100 mg PO DAILY 90 days repaglinide 0.5 mg PO TID 30 days rosuvastatin 10 mg PO DAILY spironolactone 25 mg PO BID Tobacco use date assessed: 02/01/25 Dental Screening Dental Screen Date: 06/16/25 Did you have a dental visit in the last 12 months?: Yes Did you have a dental problem in the last 6 months where you did not have access to dental care?: No Was dental information given to patient?: Patient has dentist HPI HPI Comments History of Present Illness Details The patient is a 59-year-old male presenting for follow-up of multiple chronic conditions including diabetes, benign prostatic hyperplasia, hypercholesterolemia, and anxiety disorder. The patient's diabetes is currently well-controlled with an A1c of 5.6%, which is below the target of 7%. He is on a regimen that includes repaglinide 0.5 mg three times daily. For hypercholesterolemia, the patient is taking rosuvastatin 10 mg, and his LDL cholesterol is at 53 mg/dL, which is within the target range of less than 70 mg/dL. Triglycerides are at 133 mg/dL, and total cholesterol is 123 mg/dL. The patient reports a history of benign prostatic hyperplasia, with recent PSA levels remaining stable. Anxiety is generally well-managed with clonazepam, although the patient reports increased stress over the past two weeks. He has recently started walking as a form of exercise, which led to some abdominal discomfort due to a pre-existing hernia. [facility] Medical History (Updated 06/16/25 @ 08:12 by Mercy Castro MD) Adrenal nodule BPH (benign prostatic hyperplasia) Adrenal disorder Anxiety Essential hypertension Surgical History History of excision of mass (03/10/13) History of orchiectomy (04/17/17) History of colonoscopy (2016) History of surgical removal of ganglion cyst (06/27/17) Family History Father Prostate cancer, Onset Age: 46 Mother Hx of CABG Sister DVT (deep venous thrombosis) Social History Housing: Apartment Alcohol intake: current Alcohol intake frequency: a few times a month Alcohol type: hard liquor Patient Tobacco Use Status: Never used Tobacco Tobacco use type: Cigarette e-Cigarette/Vaping Use: Never Used Second Hand Smoke Exposure: No service: No Current occupational status: employed Current occupation: [email or web address] dept/ rt hand Current occupational exposures/hazards: No Cognitive needs: No Hearing needs: No Vision needs: Yes Questionnaire PHQ-9 Over the last 2 weeks, how often have you been bothered by any of the following problems? 1. Little interest or pleasure in doing things: not at all 2. Feeling down, depressed, or hopeless: several days 3. Trouble falling or staying asleep, or sleeping too much: not at all 4. Feeling tired or having little energy: not at all 5. Poor appetite or overeating: not at all 6. Feeling bad about yourself - or that you are a failure or have let yourself or your family down: not at all 7. Trouble concentrating on things, such as reading the newspaper or watching television: not at all 8. Moving or speaking so slowly that other people could have noticed. Or the opposite - being so fidgety or restless that you have been moving around a lot more than usual: not at all 9. Thoughts that you would be better off or of hurting yourself in some way: not at all Total score: 1 Depression Screening Interpretation: Negative Depression Screening Done: Yes 07037 - PHQ-9 Billing: Yes Source: Developed by Drs. Jordan Beckford, Digna Matt, Jacob Scales and colleagues, with an educational delfino from [employer] Thrive Questionnaire Date Thrive assessed: 02/01/25 PAYAL-7 AMB Questionnaire PAYAL-7 Date PAYAL - 7 assessed: 02/01/25 Source: Developed by Drs. Jordan Beckford, Digna Matt, Jacob Scales and colleagues, with an educational delfino from [employer] Review of Systems Const All systems reviewed & are unremarkable except as noted in HPI and below Card Denies chest pain at rest, Denies chest pain with activity, Denies edema, Denies irregular heart rhythm, Denies claudication, Denies dyspnea, Denies dyspnea on exertion, Denies orthopnea, Denies paroxysmal nocturnal dyspnea and Denies slow heart rate Resp Denies cough, Denies dyspnea and Denies dyspnea on exertion GI Denies abdominal pain, Denies change in bowel habits, Denies excessive flatus, Denies nausea and Denies vomiting Denies urinary hesitancy, Denies urinary incontinence and Denies urinary urgency Musc Denies atrophy, Denies deformity and Denies limited range of motion Skin/Breast Denies bleeding lesions, Denies changing lesions and Denies rash Physical exam (Primary Care) Vital Signs: Last Vital Signs Pulse 87 06/16/25 07:43 BP 124/72 06/16/25 07:43 Pulse Ox 97 06/16/25 07:43 Oxygen Delivery Method Room Air 06/16/25 07:43 BMI result Body Mass Index 29.0 Tobacco/Smoking Status: Tobacco use Status Tobacco use date assessed 02/01/25 06/16/25 07:43 Patient Tobacco Use Status Never used Tobacco 06/16/25 07:43 Tobacco use type Cigarette 06/16/25 07:43 e-Cigarette/Vaping Use Never Used 06/16/25 07:43 PHQ-9: PHQ-9 Score PHQ-9: Total score 1 06/16/25 07:58 Depression Screening Interpretation: Negative Thrive Assessment: Date of Thrive Assessment Date Thrive assessed 02/01/25 06/16/25 07:43 Resp Effort & Inspection: normal respiratory effort Auscultation: clear to auscultation bilaterally Cardio Jugular venous distension: no JVD Rate: regular rate Rhythm: regular rhythm Heart sounds: S1 normal heart sound present and S2 normal heart sound present GI Palpation (GI): Hernia present indirect inguinal on the left Extrem General: Yes full ROM Psych Appearance: grossly normal Results AMB Hemoglobin A1c AMB Hemoglobin A1c 5.6 % Last Edit by Tawny Ashraf CMA on 06/16/25 08:00 Coding Level of Care Code Est Pt Level 4 (96799) Complex EM visit Add On G2211 Diagnoses Left inguinal hernia K40.90 Essential hypertension I10 Anxiety F41.9 Mixed hyperlipidemia E78.2 Type 2 diabetes mellitus without complication, without long-term current use of insulin E11.9 Diabetes mellitus type: type 2 Diabetes mellitus computer terminal operator insulin use: without computer terminal operator use Diabetes mellitus complication status: without complication Benign prostatic hyperplasia without lower urinary tract symptoms N40.0 Lower urinary tract symptom presence: symptoms absent Additional Codes PHQ-9 - 21906 - PHQ-9 Billing: Yes ([id number]) Time Spent (min) 23 Assessment & Plan Assessment & Plan (1) Left inguinal hernia: Code(s): K40.90 - Unilateral inguinal hernia, without obstruction or gangrene, not specified as recurrent Category: Medical (2) Essential hypertension: Code(s): I10 - Essential (primary) hypertension Category: Medical (3) Anxiety: Code(s): F41.9 - Anxiety disorder, unspecified Category: Medical (4) Mixed hyperlipidemia: Code(s): E78.2 - Mixed hyperlipidemia Category: Medical (5) Diabetes mellitus: Code(s): E11.9 - Type 2 diabetes mellitus without complications Category: Medical Qualifiers: Diabetes mellitus type: type 2 Diabetes mellitus half-way insulin use: without half-way use Diabetes mellitus complication status: without complication Qualified Code(s): E11.9 - Type 2 diabetes mellitus without complications (6) BPH (benign prostatic hyperplasia): Code(s): N40.0 - Benign prostatic hyperplasia without lower urinary tract symptoms Category: Medical Qualifiers: Lower urinary tract symptom presence: symptoms absent Qualified Code(s): N40.0 - Benign prostatic hyperplasia without lower urinary tract symptoms Plan The patient's diabetes management will continue with the current regimen, as the A1c is well-controlled at 5.6%. For hypercholesterolemia, the patient will maintain the current dose of rosuvastatin, given the LDL is within the target range. Regarding benign prostatic hyperplasia, PSA levels will continue to be monitored. Anxiety management will continue with clonazepam, and the patient is encouraged to manage stress through exercise. The patient will undergo an ultrasound and be referred to a surgeon for evaluation of the hernia. Patient was informed and verbally consented to the use of an ambient scribe for clinic note documentation during this visit. Orders: Orders Lipid Panel Today E78.5 - Hyperlipidemia, unspecified AMB Hemoglobin A1c Today Z13.9 - Encounter for screening, unspecified US abdomen flores w elastography Today K40.90 - Unilateral inguinal hernia, without obstruction or gangrene, not specified as recurrent Microalbumin, Random (w Creat) Today R80.9 - Proteinuria, unspecified Comprehensive [place]. Panel Fast Today I10 - Essential (primary) hypertension Referrals General Surgery Referral K40.90 - Unilateral inguinal hernia, without obstruction or gangrene, not specified as recurrent
--- OUTSIDE RECORDS SUMMARY | 2025-06-16 07:42 | XMS_ITS | Continuity of Care Document ---
Author Organization [facility] Address [address] [facility] [address] [place] [address] Phone [phone] Care Team Providers Care Peanut Blancher Name Role Phone Mercy Solis MD Care Team Information Receiv er [phone] Problems Active Problems Provider Date Anxiety DALILA [...] Medications SIG Qnty Indications Ordering Provider Date Tkbeztfaev6lg Tablets Take 1 Tablet (1 MG) Orally 2 Times A Day For 30 Days Mercy Cole Metoprolol Succinate FT635rv Tablets ER 24HR Take 1 Tablet By Mouth Every Day Mercy Cole Amlodipine Bsykldlc44iq Tablets Take 1 Tablet By Mouth Every Day Mercy Cole Rosuvastatin Gbkposi61dx Tablets Take 1 Tablet (10 MG) Orally Daily Mercy Cole Accu-Chek GuideStrips Check Blood Glucose Once Daily Mercy Cole Nteuobfbbxv333kz Tablets Take 1 Tablet By Mouth Every Day Mercy Cole Xlxmbrhpexgzzy24ax Tablets Take 1 Tablet By Mouth Twice A Day Unknown Repaglinide0.5mg Tablets Mercy Cole History Medications Labetalol NCY049ya Tablets Take 1 tablet by mouth twice a day 20tabs Angie boyle M.D. 07/07/2024 - 07/07/2024 Vital Signs Date Vital Result Comment 02/07/2025 [...] Status Appt Alejandro Alejandro Pathak PA Created [address] [place] [address] Drive [address] [place] [address] [phone] Alejandro Shook PA Closed [address] [place] [address] Drive [address] [place] [id number] [phone]
--- OUTSIDE RECORDS SUMMARY | 2025-06-16 07:42 | XMS_ITS | Patient Health Record ---
Author Organization [facility] Address [address] [place] [address] Care Team Providers Care Equity Research Associate Name Role Phone Mercy Cole Primary Care Provider Shabbir Mitchell Jr Unavailable [phone] Allergies Allergen (clinical drug ingredient) Drug/Non Drug [...] Problem Status W/U Status Risk Notes Problem [id number] Colon cancer screening (Z12.11) Active confirmed Problem [id number] Encounter for other preprocedural examination (Z01.818) Active confirmed Plan Of Treatment Future Test Test Name Order Date COLONOSCOPY 02/12/2017 Insurance Providers Payer Name Payer Address Payer Phone Subscriber Number Group Number Insured Name Patient Relationship to Insured Coverage Start Date Coverage End Date [facility] [address] [place] [phone] [id number] MEJÍA YARITZA Self - patient is the insured Medical (General) History Medical History History ICD Code hypertension elevated cholesterol anxiety
[2025-06-16 07:43] VITALS: BP 124/72; PULSE 87; O2SAT 97; BMI 29.0
== END 2025-06-16 08:14 | disposition home or self-care (01) ==
LOC: HO.HMCH 07:40
PROVIDERS: PCP Internal Medicine; Visit Provider Internal Medicine
DX: K40.90 Unilateral inguinal hernia, without obstruction or gangrene, not specified as recurrent (principal); I10 Essential (primary) hypertension; F41.9 Anxiety disorder, unspecified; E78.2 Mixed hyperlipidemia; E11.9 Type 2 diabetes mellitus without complications; N40.0 Benign prostatic hyperplasia without lower urinary tract symptoms; Z13.9 Encounter for screening, unspecified

== ENCOUNTER → 2025-06-16 07:39 | Outpatient (BNVA) | payer BC, SELFPAY | PROVIDERS: PCP Internal Medicine; Visit Provider Internal Medicine | DX: E11.9 Type 2 diabetes mellitus without complications (principal); N40.0 Benign prostatic hyperplasia without lower urinary tract symptoms; E78.00 Pure hypercholesterolemia, unspecified; F41.9 Anxiety disorder, unspecified; K40.90 Unilateral inguinal hernia, without obstruction or gangrene, not specified as recurrent; I10 Essential (primary) hypertension; E78.2 Mixed hyperlipidemia | CPT/HCPCS: 83036; 96127 ==

== ENCOUNTER 2025-07-19 06:17 | Outpatient (REF) | payer BC, SELFPAY ==
--- NOTE | ~2025-07-19 | US_ITS ---
EXAMINATION: US PELVIS LIMITED HISTORY: K40.90 - Unilateral inguinal hernia, without obstruction or gangrene... COMPARISON: There are no prior studies available for comparison. FINDINGS: Sonographic examination of the left inguinal region was performed. No hernia is identified. US/US pelvic limited IMPRESSION: No sonographic evidence of a left inguinal hernia. Electronically signed by: Jordan Stephens MD 07/19/2025 09:03 AM EDT
--- OUTSIDE RECORDS SUMMARY | 2025-07-19 06:20 | XMS_ITS | Patient Health Record ---
Author Organization [facility] Address [address] [place] [address] Care Team Providers Care Bottle Booth Attendant Name Role Phone Mercy Cole Primary Care Provider Shabbir Mitchell Jr Unavailable Allergies Allergen (clinical drug ingredient) Drug/Non Drug [...] Problem Status W/U Status Risk Notes Problem [id number] Colon cancer screening (Z12.11) Active confirmed Problem [id number] Encounter for other preprocedural examination (Z01.818) Active confirmed Plan Of Treatment Future Test Test Name Order Date COLONOSCOPY 02/12/2017 Insurance Providers Payer Name Payer Address Payer Phone Subscriber Number Group Number Insured Name Patient Relationship to Insured Coverage Start Date Coverage End Date [facility] [address] [place] [phone] [id number] MEJÍA YARITZA Self - patient is the insured Medical (General) History Medical History History ICD Code hypertension elevated cholesterol anxiety
--- OUTSIDE RECORDS SUMMARY | 2025-07-19 06:20 | XMS_ITS | Continuity of Care Document ---
Author Organization [facility] Address [address] [facility] [address] [place] [address] Phone [phone] Care Team Providers Care Campaign Worker Name Role Phone Mercy Solis MD Care Team Information Receiv er [phone] Problems Active Problems Provider Date Anxiety DALILA [...] Medications SIG Qnty Indications Ordering Provider Date Xlyslfcold9zu Tablets Take 1 Tablet (1 MG) Orally 2 Times A Day For 30 Days Mercy Cole Metoprolol Succinate FO983gw Tablets ER 24HR Take 1 Tablet By Mouth Every Day Mercy Cole Amlodipine Nacvofeh17fl Tablets Take 1 Tablet By Mouth Every Day Mercy Cole Rosuvastatin Wlmysex21fj Tablets Take 1 Tablet (10 MG) Orally Daily Mercy Cole Accu-Chek GuideStrips Check Blood Glucose Once Daily Mercy Cole Klpawgjoxqv277uu Tablets Take 1 Tablet By Mouth Every Day Mercy Cole Qtevsnklizcbkb29xz Tablets Take 1 Tablet By Mouth Twice A Day Unknown Repaglinide0.5mg Tablets Mercy Cole Vital Signs Date Vital Result Comment 02/07/2025 [...] DALILA Pak Plan of Treatment Future Appointment(s):* 08/10/2025 9:30 am - Ronald Oh M.D. 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
== END 2025-07-19 06:18 | disposition home or self-care (01) ==
LOC: HO.US 06:17
PROVIDERS: PCP Internal Medicine; Visit Provider Internal Medicine
DX: K40.90 Unilateral inguinal hernia, without obstruction or gangrene, not specified as recurrent (principal)
CPT/HCPCS: 76857

== ENCOUNTER → 2025-07-19 06:22 | Outpatient (BNV) | payer BC, SELFPAY | PROVIDERS: PCP Internal Medicine; Visit Provider Radiology Diagnostic Radiology | DX: K40.90 Unilateral inguinal hernia, without obstruction or gangrene, not specified as recurrent (principal) | CPT/HCPCS: 76857 ==

== ENCOUNTER 2025-07-25 09:11 | Outpatient (AMB) | payer BC, SELFPAY ==
--- NOTE | 2025-07-25 09:15 | A.OFFVIS_ITS ---
Vital Signs 07/25/25 09:25 Height 6 ft 1 in Weight 222 lb BMI 29.3 BP 125/72 Blood Pressure Location Lt brachial Position Sitting Intake Visit Reasons: Unilateral inguinal hernia Intake Note: Patient is seen in office for evaluation of an inguinal hernia. Pt c/o: lump on the left groin, few months ago was walking and started feeling pain in the groin, area was sensitive, had a CT scan done, and was also told regarding prostate issue and is seen a urologist at [facility], constantly feels the sensations to have a bm us:07/19/25 CT:01/12/25 Box Fabricator Required: No Accompanied by: Self / Same As Patient Allergies amoxicillin (AMOXICILLIN) Allergy (Intermediate, Verified 06/16/25 07:59) HIVES cephalexin (CEPHALEXIN) Allergy (Intermediate, Verified 06/16/25 07:59) HIVES doxycycline (DOXYCYCLINE) Allergy (Intermediate, Verified 06/16/25 07:59) HIVES Sulfa (Sulfonamide Antibiotics) Allergy (Intermediate, Verified 06/16/25 07:59) hives HPI Comments Details: 60-year-old male patient returning for evaluation of complaints of lower abdominal pain felt mostly in the morning when he 1st gets up. He reports what he calls gas pain mainly in the lower abdomen. This persists until he goes to the bathroom and may have 3-4 bowel movements in the morning. He reports that this is normal for him in his not a significant change with the abdominal pain is different. He was evaluated in the emergency department earlier this year and a CT abdomen and pelvis performed. This revealed prostate enlargement and diverticulosis without diverticulitis. There was no evidence of bowel obstruction. A small fat containing left inguinal hernia was identified with no bowel. He denies any pain in the left groin but does have pain higher up in the left lower quadrant and right lower quadrant as noted above. Denies any palpable lumps. [facility] Medical History Adrenal nodule BPH (benign prostatic hyperplasia) Adrenal disorder Anxiety Essential hypertension Surgical History History of excision of mass (03/10/13) History of orchiectomy (04/17/17) History of colonoscopy (2016) History of surgical removal of ganglion cyst (06/27/17) Family History Father Prostate cancer, Onset Age: 46 Mother Hx of CABG Sister DVT (deep venous thrombosis) Social History Housing: Apartment Alcohol intake: current Alcohol intake frequency: a few times a month Alcohol type: hard liquor Patient Tobacco Use Status: Never used Tobacco Tobacco use type: Cigarette e-Cigarette/Vaping Use: Never Used Second Hand Smoke Exposure: No service: No Current occupational status: employed Current occupation: [employer] dept/ rt hand Current occupational exposures/hazards: No Cognitive needs: No Hearing needs: No Vision needs: Yes Review of Systems Const All systems reviewed & are unremarkable except as noted in HPI and below Physical Exam Vital Signs: Last Vital Signs BP 125/72 07/25/25 09:25 BMI result Body Mass Index 29.3 Const General: cooperative and no acute distress Nutritional Appearance: well nourished Orientation/consciousness: patient oriented x3 Limitations: no limitations HEENT Head: Yes normocephalic and Yes atraumatic Ears: hearing grossly normal bilaterally Resp Effort & Inspection: normal respiratory effort, no audible wheezes, no cough and no respiratory distress Cardio Jugular venous distension: no JVD GI Other: Soft, nondistended, nontender, examination of the left groin in the standing position with Valsalva maneuvers revealed no palpable hernia. No hernias noted on the right side as well. Inspection: Yes normal to inspection Skin Other: Warm, dry, no rash Neuro General: patient oriented x3 Extrem General: Yes no clubbing, cyanosis or edema Assessment & Plan Assessment & Plan (1) Abdominal pain: Code(s): R10.9 - Unspecified abdominal pain Category: Medical Qualifiers: Abdominal location: generalized Qualified Code(s): R10.84 - Generalized abdominal pain (2) Bloating: Code(s): R14.0 - Abdominal distension (gaseous) Category: Medical Plan 60-year-old male patient presenting with generalized abdominal pain mainly in the lower quadrants noted on CT to have a small fat containing hernia which clinically is not evident and appears asymptomatic. He does have complaints of gas pain with multiple bowel movements in the morning after which is a pain seems to be improved. This may be an element of IBS with diarrhea and a gastroenterology consultation is suggested. No surgical intervention is recommended at this time. Orders: Referrals Gastroenterology Referral R10.9 - Unspecified abdominal pain, R14.0 - Abdominal distension (gaseous) Coding Level of Care Code Est Pt Level 3 (55906) Diagnoses Generalized abdominal pain R10.84 Abdominal location: generalized Bloating R14.0
[2025-07-25 09:25] VITALS: BP 125/72; BMI 29.3
--- OUTSIDE RECORDS SUMMARY | 2025-07-25 10:44 | XMS_ITS | Patient Health Record ---
Author Organization [facility] Address [address] [place] [address] Care Team Providers Care Rn First Assist Name Role Phone Mercy Cole Primary Care [...] Problem Status W/U Status Risk Notes Problem [id number] Colon cancer screening (Z12.11) Active confirmed Problem [id number] Encounter for other preprocedural examination (Z01.818) Active confirmed Plan Of Treatment Future Test Test Name Order Date COLONOSCOPY 02/12/2017 Insurance Providers Payer Name Payer Address Payer Phone Subscriber Number Group Number Insured Name Patient Relationship to Insured Coverage Start Date Coverage End Date [facility] [address] [place] [phone] [id number] MEJÍA YARITZA Self - patient is the insured Medical (General) History Medical History History ICD Code hypertension elevated cholesterol anxiety
--- OUTSIDE RECORDS SUMMARY | 2025-07-25 10:45 | XMS_ITS | Continuity of Care Document ---
Author Organization [facility] Address [address] [place] [address] Phone [phone] Care Team Providers Care Material Engineer Name Role Phone Mercy Solis MD Care Team Information Receiv er [phone] Problems Active Problems Provider Date Anxiety DALILA [...] Medications SIG Qnty Indications Ordering Provider Date Pnaqeslgys8uq Tablets Take 1 Tablet (1 MG) Orally 2 Times A Day For 30 Days Mercy Cole Metoprolol Succinate UR022py Tablets ER 24HR Take 1 Tablet By Mouth Every Day Mercy Cole Amlodipine Baijidks18vi Tablets Take 1 Tablet By Mouth Every Day Mercy Cole Rosuvastatin Oqnmyzb38pn Tablets Take 1 Tablet (10 MG) Orally Daily Mercy Cole Accu-Chek GuideStrips Check Blood Glucose Once Daily Mecry Cole Lwitsfxfkar660gh Tablets Take 1 Tablet By Mouth Every Day Mercy Cole Lxvnmgglqpwgdg30ep Tablets Take 1 Tablet By Mouth Twice [...] Appt Alejandro e Alejandro Shook PA Created [address] [place] [address] Drive [address] [place] [address] [phone] Alejandro Shook PA Closed [address] [place] [address] Drive [address] [place] [address] [phone]
== END 2025-07-25 09:56 | disposition home or self-care (01) ==
PROVIDERS: PCP Internal Medicine; Visit Provider Surgery
DX: R10.84 Generalized abdominal pain (principal); R14.0 Abdominal distension (gaseous)
CPT/HCPCS: 99213

== ENCOUNTER 2025-08-23 07:32 | Outpatient (REF) | payer BC, SELFPAY ==
--- NOTE | ~2025-08-23 | FL_ITS ---
EXAMINATION: XR UPPER GI SERIES WITH SMALL BOWEL CLINICAL INFORMATION: Mild pain COMPARISON: None available. TECHNIQUE: Routine upper GI air contrast study with small bowel follow-through was performed. FINDINGS: Groundman/Lineman KUB reveals nonspecific bowel gas pattern. There is no organomegaly or radiopaque calculi except for some phleboliths in the right pelvis. No gross bony abnormality. Following oral administration of thick barium and effervescent granules and upright view there is normal propagation bolus from the oral cavity through the pharynx, esophagus and stomach without obstruction, narrowing or stricture. No laryngeal penetration or aspiration seen. There is no extrinsic compression. The GE junction is widely patent. On placing patient supine and prone lying the course caliber and peristalsis of the stomach, duodenal bulb and sweep is normal. The mucosal pattern of the esophagus, stomach and the duodenum is normal. There is moderate gastroesophageal reflux without hiatal hernia. Following oral administration of additional 1 cup of barium sequential images over the abdomen was obtained as part of small bowel follow-through. On several sequential images obtained the course, caliber and peristalsis of the small bowel is normal. The small bowel transit time is less then 75 minutes. The ileocecal junction is widely patent. No intraluminal filling defect, narrowing or mucosal thickening seen. On spot images sized junction is normal. Appendix is not visualized. There is moderate stool and oral contrast seen in colon FLUOROSCOPY TIME: 3 minutes and 7 seconds DOSE AREA PRODUCT: [id number] uGy-m2 (microgray-meter squared) FL/FL upper GI w air w SBFT IMPRESSION: Moderate size gastroesophageal reflux otherwise upper GI exam is unremarkable. The small bowel transit time is less than 75 minutes. The small bowel loops, IC junction and the visualized right colon is unremarkable. Appendix is not seen. Electronically signed by: Patrick Valencia MD 08/23/2025 01:11 PM EDT
--- OUTSIDE RECORDS SUMMARY | 2025-08-23 07:35 | XMS_ITS | Continuity of Care Document ---
Author Organization [facility] Address [address] [facility] [address] [place] [address] Phone [phone] Care Team Providers Care Administrative Assistant Name Role Phone Mercy Solis MD Care Team Information Receiv er [phone] Problems Active Problems Provider Date Anxiety DALILA [...] Medications SIG Qnty Indications Ordering Provider Date Yklwzzywbh0eo Tablets Take 1 Tablet (1 MG) Orally 2 Times A Day For 30 Days Mercy Cole Amlodipine Gtlmjlhs73wl Tablets Take 1 Tablet By Mouth Every Day Mercy Cole Rosuvastatin Wncrafv83dn Tablets Take 1 Tablet (10 MG) Orally Daily Mercy Cole Accu-Chek GuideStrips Check Blood Glucose Once Daily Mercy Cole Pvpqgyxlpvy910zh Tablets Take 1 Tablet By Mouth Every Day Mercy Cole Nwlramcvblylfg04ux Tablets Take 1 Tablet By Mouth Twice A Day Unknown Repaglinide0.5mg Tablets Mercy Cole Firofzgwfs40vj Tablets Take 1 Tablet By Mouth Every Day Mercy Cole Metoprolol Succinate ZB170da Tablets ER 24HR Take 1 Tablet By Mouth Every Day Mercy Cole Vital Signs Date Vital Result Comment 08/10/2025 9:18am BP Systolic 120 mmHg BP Diastolic 80 mmHg Heart Rate 72 /min Height 73 inches 6'1 Weight 221.00 lb BMI (Body Mass Index) 29.2 kg/m2 Medical Devices Description No Information Available Encounters Type Date Location Provider Dx Diagnosis Office Visit 08/10/2025 9:30a Main Office Ronald Oh M.D. 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
--- OUTSIDE RECORDS SUMMARY | 2025-08-23 07:35 | XMS_ITS | Patient Health Record ---
Author Organization [facility] Address [address] [place] [address] Care Team Providers Care Casino Assistant Manager Name Role Phone Mercy Cole Primary Care Provider Unavailab Shabbir Johnson Jr Unavailable Rodney Ceballos Unavailable Unavailable Allergies Allergen (clinical drug ingredient) Drug/Non Drug Allergy documented on EMR Reaction Allergy Type Onset Date Status doxycycline Doxycycline Unknown Drug Allergy Act nabil Sulfamethoxazole Unknown Drug Allergy Active cephalexin Cephalexin Unknown Drug Allergy Activ e amoxicillin Amoxicillin Unknown Drug Allergy Act nabil Reason For Referral Referring Provider First Name Mercy Referring Provider Last Name Clayton Castro Referring Provider Speciality Internal M edicine Referred Organization [facility] Referred Provider Shabbir Linda Jr Referred Address [address],[place],[address], Referred Provider Specialty Gastroentero logy General Notes Melanie Lynch 2024 04:18:14 PM > requested an o blue referral for visit with Dr. Linda on 05-27-[address] Arnold's office [phone] Referral Priority Routine Medications Medication SIG (Take, Route, Frequency, Duration) Notes Start Date End Date Status Rosuvastatin Calcium 10 MG 1 tablet Oral ly Once a day Active Lisinopril 40 MG 1 tablet Orally Once a day Active Metoprolol Succinate ER 100 MG 1 tablet Orally twice a day Active Colyte with Flavor Packs 240 GM As directed Orally Over the specified time.; Duration: 1 day(s) 02/12/2017 Not-Taking Spironolactone 25 MG TAKE [address] [facility] TWICE A DAY Oral; Duration: 90 Days Active Fenofibrate 160 MG 1 tablet Orally Once a day; Duration: 30 day(s) 07/28/2025 Active amLODIPine Besylate 10 MG 1 tablet Orall y for 90 days; Duration: 30 days 07/28/2025 Active Repaglinide 0.5 MG TAKE 1 TABLET BY [facility] 3 TIMES A DAY FOR 30 DAYS ADMINISTER WITHIN 30 MINUTES OF A MEAL OR SNACK Oral; Duration: 30 Days Active clonazePAM 1 MG 1 tablet Orally Twic e a day Active Immunizations Vaccine Route Administration Date Status Comme nts Influenza Unknown 07/28/2024 Administered Social History AUDIT-C (Standard) Question Answer Notes Did you have a drink contain ing alcohol in the past year? Yes How often did you have a dri nk containing alcohol in the past year? Monthly or less (1 point) How many drinks did you have on a typical day when you were drinking in the past year? 1 or 2 drinks (0 point) How often did you have six o r more drinks on one occasion in the past year? Never (0 point) Points 1 Interpretation Negative Problems Problem Type SNOMED Code ICD Code Onset Dates Problem Status W/U Status Risk Notes Problem Colon cancer screening (539447999) Colon cancer screening (Z12.11) Active confirmed Problem Pre-procedure evaluation check (574107572) Encounter for other preprocedural examination (Z01.818) Active confirmed Vital Signs Temperature 96.6 degrees Fahrenheit 07/28/2025 Blood pressure diastolic 01 mm Hg 07/28/2025 Height 72 in 07/28/2025 Blood pressure systolic 001 mm Hg 07/28/2025 Weight 220.8 lbs 07/28/2025 BMI 29.94 kg/m2 07/28/2025 Encounters Encounter Location Date Provider Diagnosis [facility] [address] [facility] [address] [place] [address] 07/28/2025 Shabbir Linda Jr Abdominal pain R10.9 Assessments Encounter Date Diagnosis (ICD Code) Assessment Notes Treatment Notes Treatment Clinical Notes Section Notes 07/28/2025 Abdominal pain (ICD-10 - R10.9) We discussed his symptoms today. We recommended treatment with simethicone for his gas complaints. He will have an upper GI and small bowel follow-through to make sure he has no evidence of Crohn's disease. We discussed this in detail. He will let us know how he is doing in a month. Follow-up will be in 6 months. Plan Of Treatment Pending Test Test Name Order Date XR GI SMALL BOWEL SERIES 07/28/2025 Future Test Test Name Order Date COLONOSCOPY 02/12/2017 Next Appt Details Provider Name:Shabbir godwin Jr, 01/25/2026 09:20:00 AM, [address] [place] [address], [address], [place], [address], Insurance Providers Payer Name Payer Address Payer Phone Subscriber Number Group Number Insured Name Patient Relationship to Insured Coverage Start Date Coverage End Date [facility] PROF[employer]AL CLAIMS [address] [place] [address] [id number] YARITZA MEJÍA Self - patient is the insured Medical (General) History Medical History History ICD Code hypertension elevated cholesterol anxiety Colonoscopy 04/19, normal, 10-year follow -up
== END 2025-08-23 07:33 | disposition home or self-care (01) ==
LOC: HO.XRAY 07:32
PROVIDERS: PCP Internal Medicine; Visit Provider Internal Medicine Gastroenterology
DX: R10.9 Unspecified abdominal pain (principal)
CPT/HCPCS: 74246; 74248

== ENCOUNTER → 2025-08-23 07:34 | Outpatient (BNV) | payer BC, SELFPAY | PROVIDERS: PCP Internal Medicine; Visit Provider Radiology Diagnostic Radiology | DX: K21.9 Gastro-esophageal reflux disease without esophagitis (principal); R10.9 Unspecified abdominal pain | CPT/HCPCS: 74246 ==

== ENCOUNTER 2025-09-14 07:17 | Outpatient (REF) | payer BC, SELFPAY ==
--- NOTE | ~2025-09-14 | CT_ITS ---
EXAMINATION: CT ABDOMEN WITHOUT AND WITH CONTRAST CLINICAL INFORMATION: Adrenal enlargement on last CT abdomen exam. COMPARISON: CT abdomen and pelvis with contrast 01/12/2025. TECHNIQUE: Contiguous axial thin section helical images of the abdomen were performed before, after and 10 minute delayed following administration of 85 mL Omnipaque 350 intravenous contrast. The data set was reformatted in the coronal and sagittal planes and reviewed on an independent workstation. This CT examination was performed using dose optimization techniques as appropriate, variously including the following: *Automated exposure control *Adjustment of mA and/or kV according to patient size (this includes techniques or standardized protocols for targeted exams where dose is matched to indication/reason for exam; i.e. extremities or head) *Use of iterative reconstruction technique DLP: 431 mGy/cm. FINDINGS: LUNG BASES: There is dependent right basilar atelectasis. Heart size is normal. LIVER, GALLBLADDER, AND BILIARY TREE: The liver is normal size, contour and density. There is a punctate 4 mm hypodensity posterior segment right hepatic lobe, too small to correctly characterize. No additional lesions seen. No intrahepatic ductal dilatation. No radiopaque gallstones are wall thickening. PANCREAS: The pancreas is normal size and contour. No focal lesion or pancreatic ductal dilatation seen. The peripancreatic fat borders are maintained. SPLEEN: Spleen is unremarkable. There are two small accessory splenules along the posterior margin. ADRENAL GLANDS AND KIDNEYS: Minimal fullness in the left adrenal gland but no focal lesion or mass seen. No follow up needed. The fullness is stable as previous CT exam 07/28/2024 and 01/12/2025. Both kidneys are normal size, shape and position. No radiopaque calculi seen. There are 2 hypodense areas largest measuring 1.8 cm consistent with small cysts. There is no hydronephrosis. BOWEL LOOPS: There is scattered stool and gas seen throughout the colon without distention. The small bowel loops are normal caliber. Appendix is normal caliber LYMPH NODES: Normal. VASCULAR: Unremarkable. BONES: No aggressive lytic or sclerotic process seen. Endplate Schmorl's nodes are noted at T10, T11 and T12 vertebra. CT/CT abdomen wo/w IV con IMPRESSION: No adrenal mass or lymph nodes. Minimal fullness of left adrenal gland is unchanged since 2023. Small left renal cyst and tiny right hepatic lobe cysts are stable. Fleischner guidelines were followed. Electronically signed by: Patrick Valencia MD 09/14/2025 09:20 AM MERE
--- OUTSIDE RECORDS SUMMARY | 2025-09-14 07:19 | XMS_ITS | Patient Health Record ---
Author Organization [facility] Address [address] [place] [address] Care Team Providers Care Blade Changer Name Role Phone Mercy Cole Primary Care Provider Unavailab Shabbir Johnson Jr Unavailable [phone] Rodney Ceballos Unavailable Unavailable Allergies Allergen (clinical drug ingredient) Drug/Non Drug Allergy documented on EMR Reaction Allergy Type Onset Date Status doxycycline Doxycycline Unknown Drug Allergy Act nabil Sulfamethoxazole Unknown Drug Allergy Active cephalexin Cephalexin Unknown Drug Allergy Activ e amoxicillin Amoxicillin Unknown Drug Allergy Act nabil Results Component Value Reference Range Notes FL upper GI w air w SBFT Reviewed date:08/23/2025 02:37:20 PM Interpretation: Performing Lab: Notes/Report: [address] [address] Fluoroscopy Report Signed Patient: Yaritza Mejía MR#: [id number] : 1965 Acct:[id number] Age/Sex: 60 / M ADM Date: 08/23/25 Loc: HO.XRAY Attending Dr: Shabbir Linda MD Ordering Physician: Shabbir Linda MD Date of Service: 08/23/25 Procedure(s): FL upper GI w air w SBFT Accession Number(s): [id number] cc: Shabbir Linda MD; Mercy Cole MD Reason for Exam: ABD PAIN EXAMINATION: XR UPPER GI SERIES WITH SMALL BOWEL CLINICAL INFORMATION: Mild pain COMPARISON: None available. TECHNIQUE: Routine upper GI air contrast study with small bowel follow-through was performed. FINDINGS: Stocking And Box Shop Supervisor KUB reveals nonspecific bowel gas pattern. There is no organomegaly or radiopaque calculi except for some phleboliths in the right pelvis. No gross bony abnormality. Following oral administration of thick barium and effervescent granules and upright view there is normal propagation bolus from the oral cavity through the pharynx, esophagus and stomach without obstruction, narrowing or stricture. No laryngeal penetration or aspiration seen. There is no extrinsic compression. The GE junction is widely patent. On placing patient supine and prone lying the course caliber and peristalsis of the stomach, duodenal bulb and sweep is normal. The mucosal pattern of the esophagus, stomach and the duodenum is normal. There is moderate gastroesophageal reflux without hiatal hernia. Following oral administration of additional 1 cup of barium sequential images over the abdomen was obtained as part of small bowel follow-through. On several sequential images obtained the course, caliber and peristalsis of the small bowel is normal. The small bowel transit time is less then 75 minutes. The ileocecal junction is widely patent. No intraluminal filling defect, narrowing or mucosal thickening seen. On spot images sized junction is normal. Appendix is not visualized. There is moderate stool and oral contrast seen in colon FLUOROSCOPY TIME: 3 minutes and 7 seconds DOSE AREA PRODUCT: 3873 uGy-m2 (microgray-meter squared) FL/FL upper GI w air w SBFT IMPRESSION: Moderate size gastroesophageal reflux otherwise upper GI exam is unremarkable. The small bowel transit time is less than 75 minutes. The small bowel loops, IC junction and the visualized right colon is unremarkable. Appendix is not seen. Electronically signed by: Patrick Valencia MD 08/23/2025 01:11 PM EDT Dictated By: Patrick Valencia MD Signed By: <Electronically signed by Patrick Valencia MD in OV> 08/23/25 1311 DD/ 0749 TD/TT: 08/23/25 0987 Sash Finisher: [facility] Reason For Referral Referring Provider First Name Mercy Referring Provider Last Name Clayton Castro Referring Provider Speciality Internal M edicine Referred Organization [facility] Referred Provider Shabbir Linda Jr Referred Address [address] [place] [address],[place], [place],[address], Referred Provider Specialty Gastroentero logy General Notes Melanie Lynch 2024 04:18:14 PM > requested an o blue referral for visit with Dr. Linda on 05-27-[address] Arnold's office [phone] Referral Priority Routine Medications Medication SIG (Take, [...] Spironolactone 25 MG TAKE 1 TABLET BY [facility] TWICE A DAY Oral; Duration: 90 Days Active Fenofibrate 160 MG 1 tablet Orally Once a day; Duration: 30 day(s) 07/28/2025 Active amLODIPine Besylate 10 MG 1 tablet Orall y for 90 days; Duration: 30 days 07/28/2025 Active Repaglinide 0.5 MG TAKE 1 TABLET BY [facility] 3 TIMES A DAY FOR 30 DAYS [...] Status Risk Notes Problem Colon cancer screening (188089453) Colon cancer screening (Z12.11) Active confirmed Problem Pre-procedure evaluation check (064887983) Encounter for other preprocedural examination (Z01.818) Active confirmed Vital Signs Temperature 96.6 degrees Fahrenheit 07/28/2025 Blood pressure diastolic 01 mm Hg 07/28/2025 Height 72 in 07/28/2025 Blood pressure systolic 001 mm Hg 07/28/2025 Weight 220.8 lbs 07/28/2025 BMI 29.94 kg/m2 07/28/2025 Encounters Encounter Location Date Provider Diagnosis [facility] [address] [place] [address] 07/28/2025 Shabbir Linda Jr Abdominal pain R10.9 [facility] [address] [place] [address] 08/23/2025 Shabbir Linda Jr Assessments Encounter Date Diagnosis (ICD Code) Assessment [...] Provider Name:Shabbir godwin Jr, 01/25/2026 09:20:00 AM, [address] [facility] [address], [address], [place], [address], Insurance Providers Payer Name Payer Address Payer Phone Subscriber Number Group Number Insured Name Patient Relationship to Insured Coverage Start Date Coverage End Date [facility] [address] [place] [address] [id number] YARITZA MEJÍA Self - patient is the insured Medical (General) History Medical History History ICD Code hypertension elevated cholesterol anxiety Colonoscopy 04/19, normal, 10-year follow -up
--- OUTSIDE RECORDS SUMMARY | 2025-09-14 07:19 | XMS_ITS | Continuity of Care Document ---
Author Organization [facility] Address [address] [place] [address] Phone [phone] Care Team Providers Care Cabbage Salter Name Role Phone Mercy Solis MD Care Team Information Receiv er [phone] Problems Active Problems Provider Date Anxiety DALILA [...] Medications SIG Qnty Indications Ordering Provider Date Nunarmmjpo3nq Tablets Take 1 Tablet (1 MG) Orally 2 Times A Day For 30 Days Mercy Cole Amlodipine Ratitsqj18wq Tablets Take 1 Tablet By Mouth Every Day Mercy Cole Rosuvastatin Gydqaoj88xg Tablets Take 1 Tablet (10 MG) Orally Daily Mercy Cole Accu-Chek GuideStrips Check Blood Glucose Once Daily Mercy Cole Yrtbzrvusot854oi Tablets Take 1 Tablet By Mouth Every Day Mercy Cole Pkelxstgudkqlf23ga Tablets Take 1 Tablet By Mouth Twice A Day Unknown Repaglinide0.5mg Tablets Mercy Cole Vtqnzjokaw80lv Tablets Take 1 Tablet By Mouth Every Day Mercy Cole Metoprolol Succinate DP316vb Tablets ER 24HR Take 1 Tablet By [...] Appt Alejandro e Alejandro Shook PA Created [address] [place] [address] Drive [address] [place] [address] [phone] Alejandro Shook PA Closed [address] [place] [address] Drive [address] [place] [address] [phone]
[2025-09-14 08:47] LABS: PSA,Total (Free>4and<10) 2.36 ng/mL (0.00-4.00)
[2025-09-14] MEDS: iohexoL 350 MG/ML 100 ML INFUS..BTL 85 ML IV (08:49)
[2025-09-14 10:50] LABS: Alanine Aminotransferase 22 U/L (0-40); Albumin Level 4.9 g/dL (3.5-5.0); Alkaline Phosphatase 63 U/L (39-117); Anion Gap 16 (12-20); Aspartate Amino Transferase 27 U/L (5-37); Blood Urea Nitrogen 14 mg/dL (9-16); Calcium 9.6 mg/dL (8.4-10.2); Carbon Dioxide 23 mmol/L (22-29); Chloride 101 mmol/L (96-108); Cholesterol 139 mg/dL (<200); Estimated Glomerular Filt Rate > 60; HDL Cholesterol 35 mg/dL (>40); Potassium 3.9 mmol/L (3.3-5.1); Sodium 136 mmol/L (135-145); Total Protein 7.2 g/dL (6.5-8.0); Triglycerides 335 mg/dL (<150)
[2025-09-14 11:55] LABS: Microalbum/Creatinine Ratio Ur 7.4 ug/mg cr (<30)
[2025-09-15 15:56] LABS: Creatinine POC 0.7 mg/dL (0.5-1.4); GFR POC > 60
== END 2025-09-14 07:18 | disposition home or self-care (01) ==
LOC: HO.CT 07:17
PROVIDERS: Absent Provider Internal Medicine; PCP Internal Medicine; Visit Provider Internal Medicine Endocrinology, Diabetes & Metabolism
DX: D44.12 Neoplasm of uncertain behavior of left adrenal gland (principal); R35.1 Nocturia; Z12.5 Encounter for screening for malignant neoplasm of prostate; Z13.6 Encounter for screening for cardiovascular disorders
CPT/HCPCS: 36415; 74170; 80053; 80061; 82043; 82565; 82570; 84153; Q9967

== ENCOUNTER → 2025-09-14 08:05 | Outpatient (BNV) | payer BC, SELFPAY | PROVIDERS: Absent Provider Internal Medicine; PCP Internal Medicine; Visit Provider Radiology Diagnostic Radiology | DX: N28.1 Cyst of kidney, acquired (principal) | CPT/HCPCS: 74170 ==

== ENCOUNTER 2025-09-27 09:19 | Outpatient (AMB) | payer BC, SELFPAY ==
[2025-09-27 09:27] VITALS: BP 130/80; PULSE 108; TEMP 36.3; O2SAT 98; BMI 28.7
--- NOTE | 2025-09-27 09:27 | MHC.PC.OV ---
Vital Signs 09/27/25 09:27 Height 6 ft 1 in Weight 217 lb 6 oz BMI 28.7 BP 130/80 Blood Pressure Location Lt brachial Position Sitting Pulse 108 H Pulse Source Pulse Oximeter Temp 97.3 F Temp Source Temporal Artery Scan Pulse Oximetry (%) 98 Oxygen Delivery Method Room Air Intake Visit Reasons: Annual Exam Intake Note: Patient is here today for a physical. Complaint Analyst Required: No Pain Coordinator: Not Required per policy Accompanied by: Self / Same As Patient Allergies amoxicillin (AMOXICILLIN) Allergy (Intermediate, Verified 09/27/25 09:39) HIVES cephalexin (CEPHALEXIN) Allergy (Intermediate, Verified 09/27/25 09:39) HIVES doxycycline (DOXYCYCLINE) Allergy (Intermediate, Verified 09/27/25 09:39) HIVES Sulfa (Sulfonamide Antibiotics) Allergy (Intermediate, Verified 09/27/25 09:39) hives Medication List - Last Reconciled 09/27/25 by Mercy Castro MD amlodipine 10 mg PO DAILY 90 days blood pressure test kit-large (Germmattersuch Blood Pressure Monitor kit) As directed blood sugar diagnostic (FreeStyle Test strips) Use 1 test strip once a day blood sugar diagnostic (Accu-Chek Guide test strips) check blood glucose once daily blood-glucose meter (Accu-Chek Guide Glucose Meter) check glucose once daily cholecalciferol (vitamin D3) 50 mcg PO DAILY 90 days clonazepam 1 mg PO BID 30 days fenofibrate 160 mg PO DAILY 90 days fluocinolone acetonide oil 0.01% (DermOtic Oil) 5 drps otic (ear) right BID 7 days lancets Use 1 lancet once a day lancets (Accu-Chek Softclix Lancets) check blood glucose once daily lisinopril 40 mg PO DAILY 90 days metoprolol succinate ER 100 mg PO DAILY 90 days repaglinide 0.5 mg PO TID 30 days rosuvastatin 10 mg PO DAILY spironolactone 25 mg PO BID Tobacco use date assessed: 09/27/25 Dental Screening Dental Screen Date: 06/16/25 HPI HPI Comments History of Present Illness Details The patient is a 60 year old individual presenting for an annual physical exam. The patient has a history of type 2 diabetes mellitus, for which the patient takes repaglinide three times a day. The patient has hypertension, which is reportedly well-controlled, and the patient's medications include amlodipine 10 mg, lisinopril 40 mg, metoprolol, and spironolactone 25 mg. The patient's LDL cholesterol is 37, which is within the goal of being less than 70. The patient takes rosuvastatin 10 mg for this. Triglycerides are reported to be normal. Past surgical history includes an orchiectomy, colonoscopy, and ganglion cyst removal. The patient has known allergies to amoxicillin, Keflex, doxycycline, and sulfa. The patient follows with a owner operator and a home health administrator. Regarding health maintenance, the patient's last Tdap vaccine was in 2015 and the flu shot was received on July 02 of this year. The last colonoscopy was in 2016 and was normal, with the next one due in 2026. The last eye exam was on September 14 and was normal. - Tdap vaccination: Last received in 2015. - Colon cancer screening: Last colonoscopy was in 2016 and was normal; the next one is due in 2026. - Diabetic eye exam: Last performed on September 14 and was normal. - The patient follows with specialists including a owner operator and a home health administrator. - Influenza vaccination: Received on July 02 of this year. [facility] Medical History (Updated 09/27/25 @ 10:34 by Mercy Castro MD) Adrenal nodule BPH (benign prostatic hyperplasia) Adrenal disorder Anxiety Essential hypertension Surgical History History of excision of mass (03/10/13) History of orchiectomy (04/17/17) History of colonoscopy (2016) History of surgical removal of ganglion cyst (06/27/17) Family History Father Prostate cancer, Onset Age: 46 Mother Hx of CABG Sister DVT (deep venous thrombosis) Social History Housing: Apartment Alcohol intake: current Alcohol intake frequency: a few times a month Alcohol type: hard liquor Patient Tobacco Use Status: Never used Tobacco Tobacco use type: Cigarette e-Cigarette/Vaping Use: Never Used Second Hand Smoke Exposure: No service: No Current occupational status: employed Current occupation: [employer] 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 Jordan Beckford, Digna Matt, Jacob Scales and colleagues, with an educational delfino from [employer]. Review of Systems Const All systems reviewed & are unremarkable except as noted in HPI and below Card Denies chest pain at rest, Denies chest pain with activity, Denies edema, Denies irregular heart rhythm, Denies claudication, Denies dyspnea, Denies dyspnea on exertion, Denies orthopnea, Denies paroxysmal nocturnal dyspnea and Denies slow heart rate Resp Denies cough, Denies dyspnea and Denies dyspnea on exertion Neuro Denies lack of coordination Physical exam (Primary Care) Vital Signs: Last Vital Signs Temp 97.3 F 09/27/25 09:27 Pulse 108 H 09/27/25 09:27 BP 130/80 09/27/25 09:27 Pulse Ox 98 09/27/25 09:27 Oxygen Delivery Method Room Air 09/27/25 09:27 BMI result Body Mass Index 28.7 Tobacco/Smoking Status: Tobacco use Status Tobacco use date assessed 09/27/25 09/27/25 09:34 Patient Tobacco Use Status Never used Tobacco 09/27/25 09:34 Tobacco use type Cigarette 09/27/25 09:34 e-Cigarette/Vaping Use Never Used 09/27/25 09:34 Thrive Assessment: Date of Thrive Assessment Date Thrive assessed 02/01/25 09/27/25 09:34 HENAL Head: Yes normal to inspection, Yes normocephalic and Yes atraumatic Ears: external ears normal Eyes General: appearance normal, both eyes and all related structures Eyelids: Yes eyelids normal Conjunctivae: conjunctivae normal Neck Neck: Yes normal visual inspection and Yes supple Resp Effort & Inspection: normal respiratory effort Auscultation: clear to auscultation bilaterally Cardio Jugular venous distension: no JVD Rate: regular rate Rhythm: regular rhythm Heart sounds: S1 normal heart sound present and S2 normal heart sound present GI Inspection: Yes normal to inspection Palpation (GI): Soft to palpation and nontender Auscultation: normal bowel sounds Skin General skin exam: no rashes or lesions noted Neuro General: no focal motor deficits Extrem General: Yes full ROM Psych Appearance: grossly normal Results AMB Hemoglobin A1c AMB Hemoglobin A1c 5.9 % Last Edit by SHIREEN Mariscal on 09/27/25 09:39 Results Reviewed Results Reviewed: Laboratory Last Values Hgb A1c (Clinic) 5.9 % (4.0-6.0) 09/27/25 09:26 Coding Level of Care Code Est Pt Prev Care 40-64y(78870) Diagnoses Physical exam Z00.00 Type 2 diabetes mellitus without complication, without long-term current use of insulin E11.9 Diabetes mellitus type: type 2 Diabetes mellitus local intermodal truck driver insulin use: without local intermodal truck driver use Diabetes mellitus complication status: without complication Time Spent (min) 30 Assessment & Plan Assessment & Plan (1) Physical exam: Code(s): Z00.00 - Encounter for general adult medical examination without abnormal findings Category: Medical (2) Diabetes mellitus: Code(s): E11.9 - Type 2 diabetes mellitus without complications Category: Medical Qualifiers: Diabetes mellitus type: type 2 Diabetes mellitus mcfp insulin use: without mcfp use Diabetes mellitus complication status: without complication Qualified Code(s): E11.9 - Type 2 diabetes mellitus without complications Plan Plan 1. Physical exam Repeat in a year. 2. Type 2 Diabetes Mellitus The patient has type 2 diabetes mellitus. The plan is to continue repaglinide three times a day. The importance of glucose control was reinforced. A1c today was 5.9%. A1c goal is equal or less than 7%. Orders: Orders Microalbumin, Random (w Creat) 4 Months R80.9 - Proteinuria, unspecified AMB Hemoglobin A1c Today E11.9 - Type 2 diabetes mellitus without complications Lipid Panel 4 Months E78.5 - Hyperlipidemia, unspecified Comprehensive [place]. Panel Fast 4 Months Z00.00 - Encounter for general adult medical examination without abnormal findings Medications: Discontinued fenofibrate Discontinued Reason: Patient Completed Course 160 mg PO DAILY 90 days 90 tabs 1RF
--- OUTSIDE RECORDS SUMMARY | 2025-09-27 10:29 | XMS_ITS | Continuity of Care Document ---
Author Organization [facility] Address [address] [place] [address] Phone [phone] Care Team Providers Care Director Talent Name Role Phone Mercy Solis MD Care Team Information Receiv er [phone] Problems Active Problems Provider Date Anxiety DALILA [...] Medications SIG Qnty Indications Ordering Provider Date [id number] Tablets Take 1 Tablet (1 MG) Orally 2 Times A Day For 30 Days Mercy Cole Amlodipine [id number] Tablets Take 1 Tablet By Mouth Every Day Mercy Cole Rosuvastatin Tfuovbg30fx Tablets Take 1 Tablet (10 MG) Orally Daily Mercy Cole Accu-Chek GuideStrips Check Blood Glucose Once Daily Mercy Cole Knfwpnysgzv535ss Tablets Take 1 Tablet By Mouth Every Day Mercy Cole Rxekjnmbjqervy37nl Tablets Take 1 Tablet By Mouth Twice A Day Unknown Repaglinide0.5mg Tablets Mercy Cole Yedoqhbagx23tc Tablets Take 1 Tablet By Mouth Every Day Mercy Cole Metoprolol Succinate ST340ht Tablets ER 24HR Take 1 Tablet By [...] Appt Alejandro e Alejandro Shook PA Created [address] [place] [address] Drive [address] [place] [id number] [phone] Alejandro Shook PA Closed [address] [place] [address] Drive [address] [place] [id number] [phone]
== END 2025-09-27 09:51 | disposition home or self-care (01) ==
LOC: HO.HMCH 09:20
PROVIDERS: PCP Internal Medicine; Visit Provider Internal Medicine
DX: Z00.00 Encounter for general adult medical examination without abnormal findings (principal); E11.9 Type 2 diabetes mellitus without complications

== ENCOUNTER → 2025-09-27 09:19 | Outpatient (BNVA) | payer BC, SELFPAY | PROVIDERS: PCP Internal Medicine; Visit Provider Internal Medicine | DX: Z00.00 Encounter for general adult medical examination without abnormal findings (principal); E11.9 Type 2 diabetes mellitus without complications; R80.9 Proteinuria, unspecified; E78.5 Hyperlipidemia, unspecified; Z79.899 Other long term (current) drug therapy | CPT/HCPCS: 83036 ==